=== PATIENT | male | born 1930 | race Caucasian/White ===

== ENCOUNTER → 2017-06-04 | Outpatient (CLI) | payer OTHER, MEDICARE ==
[~2017-06-04] MED LIST: ALLO300 PO; AMLO5 PO; AMPI500 PO; Cipro500 MG PO; GABA300 PO; GLIM2 PO; LOSHYD100 PO; METF500 PO; METO100ER PO; MIRALAX17 GM PO; NORT25 PO; ONDA4ODT MM; PRAV20 PO; RANI150 PO
== END ==
LOC: LAB 10:02 → LAB SHORT 10:02
DX: N39.0 Urinary tract infection, site not specified (principal)
CPT/HCPCS: 87086

== ENCOUNTER 2017-08-04 07:42 | Emergency (ER) | payer OTHER, MEDICARE ==
[~2017-08-04] VITALS: Ht 170.2 cm; Wt 111.1 kg
[2017-08-04 09:30] LABS: Source, Urine Clean Catch
[2017-08-04 09:40] LABS: Bilirubin, Urine Neg (Neg); Blood, Urine Neg (Neg); Glucose Qualitative, Urine Neg (Neg); Ketones, Urine Neg (Neg); Leukocyte Esterase, Urine Neg (Neg); Nitrite, Urine Neg (Neg); Protein, Urine Neg (Neg); Urobilinogen, Urine NORM (Normal)
[2017-08-04 09:45] LABS: Calcium, Ionized (POC) 1.17 mmol/L (1.10-1.46); Chloride (POC) 99 mmol/L (98-108); Creatinine (POC) 2.1 mg/dL (0.8-1.3); Glucose (ISTAT POC) 213 mg/dL (70-99); Sodium (POC) 139 mmol/L (135-148); Total CO2 (POC) 26 mmol/L (21-32)
[2017-08-04 09:58] LABS: Appearance, Urine Clear (Clear); Color, Urine Yellow (P-Yellow)
== END 2017-08-04 15:39 | disposition home or self-care (01) ==
LOC: ER 07:42
PROVIDERS: Physician Assistant
DX: R53.1 Weakness (principal); W19.XXXA Unspecified fall, initial encounter; X50.9XXA Other and unspecified overexertion or strenuous movements or postures, initial encounter; Z79.899 Other long term (current) drug therapy; Z79.84 Long term (current) use of oral hypoglycemic drugs; I10 Essential (primary) hypertension; E11.40 Type 2 diabetes mellitus with diabetic neuropathy, unspecified; Z87.891 Personal history of nicotine dependence
CPT/HCPCS: 36415; 71045; 73562-LT; 80047; 81003; 83880; 85014; 99283

== ENCOUNTER 2018-09-08 14:56 | Emergency (ER) | payer OTHER, MEDICARE ==
[~2018-09-08] VITALS: Ht 172.7 cm; Wt 108.9 kg
[2018-09-08 15:34] LABS: BASOPHILS ABSOLUTE AUTO 0.05 K/mm3 (0.00-0.23); BASOPHILS PERCENT AUTO 1 % (0-2); EOSINOPHILS ABSOLUTE AUTO 0.18 K/mm3 (0.00-0.68); EOSINOPHILS PERCENT AUTO 2 % (0-6); Hematocrit 42.4 % (37.0-53.0); Hemoglobin 14.5 g/dL (13.5-17.5); IMMATURE GRAN ABSOLUTE AUTO 0.04 K/mm3 (0.00-0.10); IMMATURE GRAN PERCENT AUTO 0 % (0-1); LYMPHOCYTES PERCENT AUTO 14 % (21-46); MONOCYTES PERCENT AUTO 8 % (4-13); Mean Corpuscular HGB Conc 34.2 g/dL (31.5-36.5); Mean Corpuscular Volume 91 fL (80-100); Mean Platelet Volume 10.2 fL (9.1-12.4); NEUTROPHILS ABSOLUTE AUTO 7.12 K/mm3 (1.96-9.15); NEUTROPHILS PERCENT AUTO 76 % (41-73); Platelet Count 218 K/mm3 (150-400); RDW Coefficient Variation 13.6 % (11.7-14.2); RDW Standard Deviation 44.9 fL (35.1-46.3); Red Blood Cell Count 4.67 M/mm3 (4.30-5.90); White Blood Cell Count 9.39 K/mm3 (4.00-11.30)
[2018-09-08 16:00] LABS: Albumin, Blood 3.6 g/dL (3.4-5.0); Albumin/Globulin Ratio 0.9 (0.8-1.8); Bilirubin, Total 0.5 mg/dL (0.1-1.0); Bun/Creatinine Ratio 14.1 (12.0-20.0); Calcium, Blood 8.9 mg/dL (8.5-10.1); Creatinine, Blood 1.85 mg/dL (0.60-1.20); Globulin, Blood 4.2 g/dL (2.2-4.0); Potassium, Blood 3.7 mmol/L (3.5-5.5); Total Protein, Blood 7.8 g/dL (6.4-8.2)
[2018-09-08] MEDS ORDERED: Allopurinol100 MG PO (17:34)
[2018-09-08] MEDS ORDERED: GABA400 PO (17:35)
[2018-09-08] MEDS ORDERED: CEPH500 PO (18:45)
== END 2018-09-08 18:56 | disposition home or self-care (01) ==
LOC: ER 14:56
PROVIDERS: Physician Assistant
DX: E11.621 Type 2 diabetes mellitus with foot ulcer (principal); L97.509 Non-pressure chronic ulcer of other part of unspecified foot with unspecified severity; E11.42 Type 2 diabetes mellitus with diabetic polyneuropathy; E11.65 Type 2 diabetes mellitus with hyperglycemia; L03.119 Cellulitis of unspecified part of limb; I10 Essential (primary) hypertension; M10.9 Gout, unspecified; N28.9 Disorder of kidney and ureter, unspecified; Z79.899 Other long term (current) drug therapy; Z87.891 Personal history of nicotine dependence
CPT/HCPCS: 73630; 80053; 85025; 96365; 99283-25; J0690

== ENCOUNTER 2018-10-30 18:24 | Inpatient (IN) | payer OTHER, MEDICARE ==
[~2018-10-30] VITALS: Ht 172.7 cm; Wt 104.0 kg
[~2018-10-30 18:24] MED LIST changes: +Allopurinol100 MG PO; +CEPH500 PO; +GABA400 PO
[2018-10-30 19:10] LABS: BASOPHILS ABSOLUTE AUTO 0.07 K/mm3 (0.00-0.23); BASOPHILS PERCENT AUTO 0 % (0-2); EOSINOPHILS PERCENT AUTO 0 % (0-6); Hematocrit 45.7 % (37.0-53.0); Hemoglobin 15.7 g/dL (13.5-17.5); IMMATURE GRAN ABSOLUTE AUTO 0.16 K/mm3 (0.00-0.10); IMMATURE GRAN PERCENT AUTO 1 % (0-1); LYMPHOCYTES ABSOLUTE AUTO 0.27 K/mm3 (0.84-5.20); LYMPHOCYTES PERCENT AUTO 1 % (21-46); MONOCYTES ABSOLUTE AUTO 0.69 K/mm3 (0.16-1.47); MONOCYTES PERCENT AUTO 3 % (4-13); Mean Corpuscular HGB 31.2 pg (26.0-34.0); Mean Corpuscular HGB Conc 34.4 g/dL (31.5-36.5); Mean Corpuscular Volume 91 fL (80-100); Mean Platelet Volume 9.8 fL (9.1-12.4); NEUTROPHILS PERCENT AUTO 95 % (41-73); Platelet Count 203 K/mm3 (150-400); RDW Coefficient Variation 13.7 % (11.7-14.2); RDW Standard Deviation 45.1 fL (35.1-46.3); Red Blood Cell Count 5.03 M/mm3 (4.30-5.90); White Blood Cell Count 24.19 K/mm3 (4.00-11.30)
[2018-10-30 19:19] LABS: Source, Urine Clean Catch
[2018-10-30 19:22] LABS: Appearance, Urine Hazy (Clear); Bilirubin, Urine Neg (Neg); Blood, Urine 5+ (Neg); Color, Urine Yellow (P-Yellow); Glucose Qualitative, Urine 4+ (Neg); Ketones, Urine 2+ (Neg); Leukocyte Esterase, Urine 1+ (Neg); Nitrite, Urine Neg (Neg); Protein, Urine 1+ (Neg); Specific Gravity, Urine 1.015 (1.003-1.022); Urobilinogen, Urine NORM (Normal)
[2018-10-30 19:29] LABS: Albumin, Blood 3.8 g/dL (3.4-5.0); Albumin/Globulin Ratio 0.9 (0.8-1.8); Bilirubin, Total 0.7 mg/dL (0.1-1.0); Bun/Creatinine Ratio 17.2 (12.0-20.0); Calcium, Blood 9.2 mg/dL (8.5-10.1); Creatinine, Blood 1.86 mg/dL (0.60-1.20); Globulin, Blood 4.4 g/dL (2.2-4.0); Potassium, Blood 4.6 mmol/L (3.5-5.5); Total Protein, Blood 8.2 g/dL (6.4-8.2)
[2018-10-30] MEDS ORDERED: Ventolin/Prove6.7 GM INH (19:30)
[2018-10-30] MEDS ORDERED: Zantac150 MG PO (19:31)
[2018-10-30 19:40] LABS: Bacteria Mod /hpf; Red Blood Cells, Urine 25-50 /hpf (0-2); Squamous Epithelial Cells Rare /hpf (Few)
[2018-10-31 01:18] LABS: Adenovirus F 40/41 Not Detected (NOT DETECT); Astrovirus Not Detected (NOT DETECT); Campylobacter Sp Not Detected (NOT DETECT); Cryptosporidium Not Detected (NOT DETECT); Cyclospora Cayetanensis Not Detected (NOT DETECT); E. Coli O157 Not Detected (NOT DETECT); Entamoeba Histolytica Not Detected (NOT DETECT); Enteroaggregative E. coli-EAEC Not Detected (NOT DETECT); Enteropathogenic E. coli-EPEC Not Detected (NOT DETECT); Enterotoxigenic E. coli-ETEC Not Detected (NOT DETECT); Giardia Lamblia Not Detected (NOT DETECT); Norovirus GI/GII Not Detected (NOT DETECT); Plesiomonas Shigelloides Not Detected (NOT DETECT); Rotavirus A Not Detected (NOT DETECT); Salmonella Sp Not Detected (NOT DETECT); Sapovirus Not Detected (NOT DETECT); Shiga Toxin-prod E. coli-STEC Not Detected (NOT DETECT); Shigella/Enteroin E. coli-EIEC Not Detected (NOT DETECT); Vibrio Cholerae Not Detected (NOT DETECT); Vibrio Sp Not Detected (NOT DETECT); Yersinia Enterocolitica Not Detected (NOT DETECT)
[2018-10-31 05:03] LABS: BASOPHILS ABSOLUTE AUTO 0.04 K/mm3 (0.00-0.23); BASOPHILS PERCENT AUTO 0 % (0-2); EOSINOPHILS ABSOLUTE AUTO 0.01 K/mm3 (0.00-0.68); EOSINOPHILS PERCENT AUTO 0 % (0-6); Hematocrit 38.8 % (37.0-53.0); Hemoglobin 13.1 g/dL (13.5-17.5); IMMATURE GRAN ABSOLUTE AUTO 0.13 K/mm3 (0.00-0.10); IMMATURE GRAN PERCENT AUTO 1 % (0-1); LYMPHOCYTES ABSOLUTE AUTO 0.52 K/mm3 (0.84-5.20); LYMPHOCYTES PERCENT AUTO 3 % (21-46); MONOCYTES ABSOLUTE AUTO 0.64 K/mm3 (0.16-1.47); MONOCYTES PERCENT AUTO 4 % (4-13); Mean Corpuscular HGB 31.3 pg (26.0-34.0); Mean Corpuscular HGB Conc 33.8 g/dL (31.5-36.5); Mean Corpuscular Volume 93 fL (80-100); NEUTROPHILS PERCENT AUTO 93 % (41-73); Platelet Count 164 K/mm3 (150-400); RDW Coefficient Variation 13.7 % (11.7-14.2); RDW Standard Deviation 46.5 fL (35.1-46.3); Red Blood Cell Count 4.18 M/mm3 (4.30-5.90); White Blood Cell Count 18.14 K/mm3 (4.00-11.30)
[2018-10-31 05:22] LABS: Albumin/Globulin Ratio 0.8 (0.8-1.8); Bilirubin, Total 0.5 mg/dL (0.1-1.0); Bun/Creatinine Ratio 14.8 (12.0-20.0); Calcium, Blood 8.2 mg/dL (8.5-10.1); Creatinine, Blood 1.82 mg/dL (0.60-1.20); Globulin, Blood 3.6 g/dL (2.2-4.0); Potassium, Blood 3.8 mmol/L (3.5-5.5); Total Protein, Blood 6.6 g/dL (6.4-8.2)
--- NOTE | 2018-10-31 05:28 | NUR ---
SHIFT SUMMARY- PT. ARRIVED FROM ED VIA STRETCHER. TRANSFERRED ONTO BED BY THIS NURSE AND SCHOOL BUSINESS MANAGER. A&O, WITH GENERALIZED WEAKNESS. ATTENDS IN PLACE, PT. ABLE TO USE URINAL BUT INCONTINENT AT TIMES. DENIED ANY PAIN OR DISCOMFORT. POSITIONED FOR COMFORT. PT. ASLEEP T/O THE REST OF THE NIGHT. IV FLUIDS RUNNING. CALL LIGHT WITHIN REACH AND SIDE RAILS UP X2. WILL CONT TO MONITOR.
--- NOTE | 2018-10-31 14:05 | NUR ---
Physician notified Received orders for CBG achs instead of Q6.
--- NOTE | 2018-10-31 17:28 | NUR ---
Shift Summary Pleasant and cooperative t/o shift. A/O x 3. Patient states nonambulatory and w/c bound as baseline. Medicated for R shoulder pain x 1 per EMAR. Denies N/V, no evidence of diarrhea. 1P c urinal, continent, calls appropriately. VSS, afebrile. No acute changes this shift.
--- NOTE | 2018-10-31 18:17 | NUR ---
Patient has a temp of 101.4 following Tylenol administration per EMAR. Covers removed and room temperature has been reduced. Will recheck temp and continue to monitor.
[2018-10-31 20:50] LABS: Adenovirus F 40/41 Not Detected (NOT DETECT); Astrovirus Not Detected (NOT DETECT); Campylobacter Sp Not Detected (NOT DETECT); Cryptosporidium Not Detected (NOT DETECT); Cyclospora Cayetanensis Not Detected (NOT DETECT); E. Coli O157 Not Detected (NOT DETECT); Entamoeba Histolytica Not Detected (NOT DETECT); Enteroaggregative E. coli-EAEC Not Detected (NOT DETECT); Enteropathogenic E. coli-EPEC Not Detected (NOT DETECT); Enterotoxigenic E. coli-ETEC Not Detected (NOT DETECT); Giardia Lamblia Not Detected (NOT DETECT); Norovirus GI/GII Not Detected (NOT DETECT); Plesiomonas Shigelloides Not Detected (NOT DETECT); Rotavirus A Not Detected (NOT DETECT); Salmonella Sp Not Detected (NOT DETECT); Sapovirus Not Detected (NOT DETECT); Shiga Toxin-prod E. coli-STEC Not Detected (NOT DETECT); Shigella/Enteroin E. coli-EIEC Not Detected (NOT DETECT); Vibrio Cholerae Not Detected (NOT DETECT); Vibrio Sp Not Detected (NOT DETECT); Yersinia Enterocolitica Not Detected (NOT DETECT)
--- NOTE | 2018-11-01 03:54 | NUR ---
SHIFT SUMMARY- NO ACUTE CHANGES OVERNIGHT. PT. SLEPT ON/OFF T/O THE NIGHT. PT. INCONTINENT, BRIEF IN PLACE. DENIED ANY PAIN OR DISCOMFORT. IV FLUIDS INFUSING. CALL LIGHT WITHIN REACH AND SIDE RAILS UP X2. WILL CONT TO MONITOR.
--- NOTE | 2018-11-01 07:20 | NUR ---
Physician notified Dr. Lenz notified of second set of blood cultures c gram + cocci.
[2018-11-01 14:54] LABS: Stool Occult Blood Guaiac 1 Neg (Neg)
--- NOTE | 2018-11-01 17:56 | NUR ---
Shift Summary Pleasant and cooperative c care. No c/o N/V or pain. PT/OT in to work with patient today. Calls appropriately. No other acute changes this shift. VSS, afebrile.
--- NOTE | 2018-11-02 05:09 | NUR ---
SHIFT SUMMARY: JASPREET IS A 88 Y/O MALE, AOX3 THAT HAD PERIODS OF CONFUSION THROUGHOUT THE NIGHT. FORGETTING WHERE HE WAS AT AND WHAT WAS HAPPENING. HE HAD SEVERAL LOOSE BOWEL MOVMENTS THROUGHOUT THE NIGHT, NEEDING ATTENDS CHANGE, MOST OF THE TIME HE WAS ABLE TO CALL FOR THE BED MONTES. HE WOULD ALSO HAVE A BOWEL MOVMENT WITH EVERY TIME HE WOULD USE THE URNIAL. HE DID SLEEP FOR MOST OF THE NIGHT WAKING UP AROUND LAB TIME. HE HAD ANOTHER BOWEL MOVEMENT WHEN HE WOKE UP. MEDS WERE GIVEN PER EMAR. IV INFUSED ANTIBOTICS WITH NO PROBLEM. HE DENIED PAIN AND DISCOMFORT. NO OTHER CHANGES TO NOTE THIS SHIFT. WILL REPORT TO DAY SHIFT RN.
[2018-11-02 09:23] LABS: Hematocrit 42.6 % (37.0-53.0); Hemoglobin 14.1 g/dL (13.5-17.5); Mean Corpuscular HGB 30.4 pg (26.0-34.0); Mean Corpuscular HGB Conc 33.1 g/dL (31.5-36.5); Mean Corpuscular Volume 92 fL (80-100); Mean Platelet Volume 9.9 fL (9.1-12.4); Platelet Count 169 K/mm3 (150-400); RDW Coefficient Variation 13.7 % (11.7-14.2); RDW Standard Deviation 46.5 fL (35.1-46.3); Red Blood Cell Count 4.64 M/mm3 (4.30-5.90); White Blood Cell Count 7.31 K/mm3 (4.00-11.30)
[2018-11-02 09:37] LABS: Bun/Creatinine Ratio 11.2 (12.0-20.0); Calcium, Blood 9.1 mg/dL (8.5-10.1); Creatinine, Blood 1.6 mg/dL (0.60-1.20)
--- NOTE | 2018-11-02 10:59 | NUR ---
INFORMED DR MEJIA OF SBP AROUND 160, HE IS AWARE, STATES HE WILL ADD PO BP MEDS. ALSO INFORMED OF 7 BM OVER NIGHT, ORDERED CDIF AND STATES WILL ORDER PROBIOTICS TODAY
--- NOTE | 2018-11-02 11:18 | NUR ---
PT HAD STOOL IN ATTNDS AND LEAKED. BED CHANGED.
--- NOTE | 2018-11-02 17:40 | NUR ---
CHECKED PT ATTNDS. STATES MAYBE SOME STOOL . PT CDI. REPOSITIONED. BED IN LOW POSITION, CALL LITE IN REEACH, CALLS APPROP
--- NOTE | 2018-11-02 18:08 | NUR ---
SHIFT SUMMARY JASPREET DENIED PAIN THIS SHIFT EXCEPT A HEADACHE FOR WHICH TYLENOL HELPED. GOT UP WITH PT/OT TO USE SLIDER BOARD TO GO FROM BED TO TO BSC. RECEIVED SMALL SCROTAL ABRASION DURING TRANSFER, ENDODONTIST. 7-8 BOWEL MOVEMENTS THIS SHIFT, MOSTLY CONTINENT THIS SHIFT. AW PODIATRY CONSULT. NOW ON ADA DIET, FAMILY VISITED TODAY. ALERT AND ORIENTED, SLIGHTLY FORGETFUL. SLIGHT HYPERTENSION, SBP AROUND 160, DR MEJIA INFORMED. REQUESTED IMMODIUM AND PROBIOTICS FROM HIM.
--- NOTE | 2018-11-03 05:23 | NUR ---
SHIFT SUMMARY: JASPREET IS A 88 Y/O MALE. AOX3, FORGETFUL AT TIME, WHO HAD A GOOD NIGHT SLEEPING MOST OF THE NIGHT AFTER MEDS. HE DID WAKE UP WITH AN ACCIDENT ONCE TONIGHT, WHICH HE NEEDED A BED CHANGE AND CLEANING UP. AFTERWARDS HE SLEPT REST OF THE SHIFT. NO ACUTE CHANGES OR CONCERNS WERE TO NOTE. WILL REPORT TO DAY SHIFT RN.
--- NOTE | 2018-11-03 08:10 | NUR ---
PT PLEASANT COOP A/O. DENIES PAIN. PT WHEELCHAIR AND BED AT BASELINE. H/R REG, NO MURMER NOTED. NO TELE. LUNGS CLEAR WITH LIGHT WHEEZE BASES. BREATHING TX CALLED. RESP EASY, UNLABORED. ON R.A. BT X4 LAST BM TODAY. LOOSE, BUT PT STATES IMPROVING. VOIDS URINAL. SOME OCC INCONT. BED IN LOW POSITION,C ALL LITE IN REACH. CALLS APROP
--- NOTE | 2018-11-03 11:51 | NUR ---
REPORT CALLED TO GARRY AT [facility] AT 1140.
[2018-11-03] MEDS ORDERED: LACT PO (12:14)
[2018-11-03] MEDS ORDERED: Anti-Diarrheal2 MG PO (12:15)
[2018-11-03] MEDS ORDERED: Metamucil Smooth1 EA PO (12:16)
[2018-11-03] MEDS ORDERED: Rocephin 1g1 G/50 ML IV (12:17)
--- NOTE | 2018-11-03 13:09 | NUR ---
POWERGLIDE PLACED BY SUGAR GRINDER. PERIPHERAL IV PULLED INTACT BY SUGAR GRINDER. PACKET READY FOR D/C PER MALLORY Pinedo D/C RN. PT AWARE OF D/C TO [facility]. NO TELE. REPORT CALLED TO GARRY AT [facility]. 11:40. ADVISED TRANSPORT IS PLANNED 13:30. TO GO BY BED/STRETCHER
--- NOTE | 2018-11-03 14:45 | NUR ---
PT OUT DOOR BY TRANSPORT AT [id number]
== END 2018-11-03 14:15 | DRG 871 ==
LOC: ER 18:24 → MEDS 22:17 → ER 10-31 00:34 → MEDS 10-31 00:40 → ENPENDDIS 11-03 11:14 → MEDS 11-03 14:15
PROVIDERS: Emergency Medicine; Internal Medicine; Nurse Practitioner Acute Care; ADMIT Hospitalist
DX: A40.8 Other streptococcal sepsis (principal); G92 Toxic encephalopathy; R65.20 Severe sepsis without septic shock; N18.3 Chronic kidney disease, stage 3 (moderate); E11.22 Type 2 diabetes mellitus with diabetic chronic kidney disease; I12.9 Hypertensive chronic kidney disease with stage 1 through stage 4 chronic kidney disease, or unspecified chronic kidney disease; E11.51 Type 2 diabetes mellitus with diabetic peripheral angiopathy without gangrene; E11.40 Type 2 diabetes mellitus with diabetic neuropathy, unspecified; E86.0 Dehydration; R19.7 Diarrhea, unspecified; Z87.891 Personal history of nicotine dependence; Z79.84 Long term (current) use of oral hypoglycemic drugs; Z79.899 Other long term (current) drug therapy; Z66 Do not resuscitate
CPT/HCPCS: 0097U; 36415; 74176; 80048; 80053; 81001; 82272; 82550; 82947; 83605; 83690; 83735; 85025; 85027; 87040; 87086; 87184; 87493; 89055; 93005; 93010; 93922; 94640; 94760; 96361; 96365; 96367; 97161; 97166; 97530; 97535; 99285-25; A9270; C1751; J0696; J1650; J2543; J3370; J7030; J7050

== ENCOUNTER 2019-01-22 07:56 | Day surgery (SDC) | payer OTHER, MEDICARE ==
[~2019-01-22 07:56] MED LIST changes: -AMLO5 PO; -Allopurinol100 MG PO; -GLIM2 PO; +LACT PO; -METF500 PO; -METO100ER PO; +Metamucil Smooth1 EA PO; -NORT25 PO; -PRAV20 PO; +Rocephin 1g1 G/50 ML IV
== END 2019-01-22 22:39 | disposition home or self-care (01) ==
LOC: WOUND 07:56
DX: E11.621 Type 2 diabetes mellitus with foot ulcer (principal); L97.422 Non-pressure chronic ulcer of left heel and midfoot with fat layer exposed; L97.412 Non-pressure chronic ulcer of right heel and midfoot with fat layer exposed; E11.22 Type 2 diabetes mellitus with diabetic chronic kidney disease; N18.3 Chronic kidney disease, stage 3 (moderate); Z79.4 Long term (current) use of insulin; Z79.899 Other long term (current) drug therapy
CPT/HCPCS: G0463

== ENCOUNTER 2019-01-24 16:11 | Inpatient (IN) | payer OTHER, MEDICARE ==
[~2019-01-24] VITALS: Ht 172.7 cm; Wt 68.9 kg
[2019-01-24 17:27] LABS: BASOPHILS ABSOLUTE AUTO 0.07 K/mm3 (0.00-0.23); BASOPHILS PERCENT AUTO 1 % (0-2); EOSINOPHILS ABSOLUTE AUTO 0.39 K/mm3 (0.00-0.68); EOSINOPHILS PERCENT AUTO 3 % (0-6); Hematocrit 36.5 % (37.0-53.0); Hemoglobin 11.9 g/dL (13.5-17.5); IMMATURE GRAN ABSOLUTE AUTO 0.25 K/mm3 (0.00-0.10); IMMATURE GRAN PERCENT AUTO 2 % (0-1); LYMPHOCYTES ABSOLUTE AUTO 0.96 K/mm3 (0.84-5.20); LYMPHOCYTES PERCENT AUTO 7 % (21-46); MONOCYTES ABSOLUTE AUTO 0.97 K/mm3 (0.16-1.47); MONOCYTES PERCENT AUTO 7 % (4-13); Mean Corpuscular HGB 29.5 pg (26.0-34.0); Mean Corpuscular HGB Conc 32.6 g/dL (31.5-36.5); Mean Corpuscular Volume 90 fL (80-100); Mean Platelet Volume 9.4 fL (9.1-12.4); NEUTROPHILS ABSOLUTE AUTO 10.91 K/mm3 (1.96-9.15); NEUTROPHILS PERCENT AUTO 81 % (41-73); Platelet Count 410 K/mm3 (150-400); RDW Coefficient Variation 13.4 % (11.7-14.2); RDW Standard Deviation 44.9 fL (35.1-46.3); Red Blood Cell Count 4.04 M/mm3 (4.30-5.90); White Blood Cell Count 13.55 K/mm3 (4.00-11.30)
[2019-01-24 17:41] LABS: Albumin, Blood 2.5 g/dL (3.4-5.0); Albumin/Globulin Ratio 0.4 (0.8-1.8); Bilirubin, Total 0.4 mg/dL (0.1-1.0); Bun/Creatinine Ratio 22.9 (12.0-20.0); Calcium, Blood 9.7 mg/dL (8.5-10.1); Creatinine, Blood 1.92 mg/dL (0.60-1.20); Globulin, Blood 6.7 g/dL (2.2-4.0); Potassium, Blood 4.9 mmol/L (3.5-5.5); Total Protein, Blood 9.2 g/dL (6.4-8.2)
[2019-01-24] MEDS ORDERED: TOPROL XL200 MG PO (19:01)
[2019-01-24] MEDS ORDERED: AMLO5 PO (19:03)
[2019-01-24] MEDS ORDERED: PRAV20 PO (19:03)
[2019-01-24] MEDS ORDERED: Nortriptyline H50 MG PO (19:04)
[2019-01-24] MEDS ORDERED: GLIM4 PO (19:05)
[2019-01-24] MEDS ORDERED: METF500 PO (19:06)
[2019-01-24] MEDS ORDERED: Allopurinol100 MG PO (19:06)
[2019-01-24] MEDS ORDERED: Ventolin/Prove6.7 GM INH (19:08)
[2019-01-24] MEDS ORDERED: Zantac150 MG PO (19:09)
[2019-01-24] MEDS ORDERED: Anti-Diarrheal2 MG PO (19:10)
[2019-01-24] MEDS ORDERED: ESCI10 PO (19:12)
[2019-01-24] MEDS ORDERED: BACL10 PO (19:12)
[2019-01-24] MEDS ORDERED: LOSARTAN POTAS100 MG PO (19:13)
[2019-01-24] MEDS ORDERED: Hair, Skin & N1 EACH PO (19:14)
[2019-01-24] MEDS ORDERED: DOCU100 PO (19:15)
[2019-01-24] MEDS ORDERED: GAVILAX17 GM PO (19:15)
[2019-01-24] MEDS ORDERED: Fleet Enema132 ML PR (19:16)
[2019-01-24] MEDS ORDERED: ACET325 PO (19:16)
[2019-01-24] MEDS ORDERED: GLYCERIN1 EACH PR (19:17)
[2019-01-24] MEDS ORDERED: ALLERCLEAR10 MG PO (19:19)
[2019-01-24] MEDS ORDERED: BASAGLAR K100 UNIT/2 SC (19:21)
[2019-01-24] MEDS ORDERED: SANTYL30 GM TOP (19:23)
[2019-01-24 19:38] LABS: Source, Urine Clean Catch
[2019-01-24 19:49] LABS: Appearance, Urine Hazy (Clear); Bilirubin, Urine Neg (Neg); Blood, Urine 1+ (Neg); Color, Urine Yellow (P-Yellow); Glucose Qualitative, Urine Neg (Neg); Ketones, Urine Neg (Neg); Leukocyte Esterase, Urine 3+ (Neg); Nitrite, Urine Neg (Neg); Protein, Urine 1+ (Neg); Specific Gravity, Urine 1.015 (1.003-1.022); Urobilinogen, Urine NORM (Normal)
[2019-01-24 20:24] LABS: Bacteria Few /hpf; Red Blood Cells, Urine 0-2 /hpf (0-2); Squamous Epithelial Cells Mod /hpf (Few); White Blood Cells, Urine 25-50 /hpf (0-5)
[2019-01-24 20:25] LABS: Yeast/Fungi Urine Mod /hpf
[2019-01-24 23:28] LABS: Source, Urine Catheter
[2019-01-24 23:30] LABS: Bilirubin, Urine Neg (Neg); Blood, Urine Neg (Neg); Glucose Qualitative, Urine Neg (Neg); Ketones, Urine Neg (Neg); Leukocyte Esterase, Urine Neg (Neg); Nitrite, Urine Neg (Neg); Protein, Urine Neg (Neg); Specific Gravity, Urine 1.015 (1.003-1.022); Urobilinogen, Urine NORM (Normal)
--- NOTE | 2019-01-24 23:32 | NUR ---
ADMISSION NOTE PT ARRIVED TO UNIT AT 2019 VIA STRETCHER, SLIDE TRANSFER TO BED. 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 APPLIED SANTYL OINTMENT TO WOUNDS AND APPLIED C/D/I DRESSING. PHOTOS DOCUMENTED, SEE CHART. BLADDER SCAN >600 ML UPON ARRIVAL. CALL PLACED TO SARIKA MAS, ORDERS SCALES CATH FOR RETENTION. PT TO RECIEVE FLUIDS PER SEPSIS PROTOCOL, THEREFORE RETENTION WOULD BE AN ONGOING ISSUE TONIGHT. SCALES CATH INSERTED WITH 16FR COUDE TIP BY ORIENTDEVONTE STERLING. STERILE TECHNIQUE MAINTAINED. GAVE ORAL BACLOFEN AND GABAPENTIN FOR BLE SPASMS. AIR MATTRESS ORDERED. Q2H TURNS IMPLEMENTED UNTIL AIR MATTRESS IS AVAIL. ASSUMING CARE OF PT.
[2019-01-24 23:40] LABS: Appearance, Urine Clear (Clear); Color, Urine Yellow (P-Yellow)
--- NOTE | 2019-01-25 01:16 | NUR ---
BEGINNING SHIFT SUMMARY ASSUMED CARE OF PT AT 2019, PT WAS TRANSFERED TO BED VIA SLIDE SHEET. PT WAS ADMITTED FROM [facility] DUE TO HALLUTIONATIONS BUT PT HAS NOT HAD ANY SINCE. PT IS A/O, CALLS APPROPIATELY. HEART SOUNDS IRREGULAR, PERIPHERAL PEDAL PULSES WEAK, IV INFUSING NS AT 500ML/HR DUE TO SEPSIS PROTOCAL. LUNG SOUNDS DIMINISHED AT THE BASES, PT DENIES SOB AT THIS TIME, RA. ABDOMEN FIRM, NONTENDER, PT STATES NORMAL. SCALES CATH PLACED FOR RETENTION AND PROTECTION OF OPEN WOUNDS, URINE DARK AND CLOUDY, SAMPLE SENT, URINE CAME BACK NEGATIVE FOR BACTERIA. PT HAS BILATERAL DECUBITOUS WOUNDS ON HIS HEELS, DRESSED PER DR ORDERS, PT ALSO HAS A 2ND DEGREE PRESSURE ULCER ON L BUTTOCK, DRESSED WITH MYPELEX. PT HAS MUSCLE SPASMS IN LEGS THAT CAUSE HIM TO RUB HIS HEELS ON THE BED, HOSPITALIST CALLED AND PERSCRIBED BACLOFIN AND GABAPENTIN. PT IS CURRENTLY SLEEPING ON HIS L SIDE, CALL LIGHT IN REACH, BED IN LOWEST POSTION, WILL CONTINUE TO MONITOR.
[2019-01-25 04:59] LABS: BASOPHILS ABSOLUTE AUTO 0.04 K/mm3 (0.00-0.23); BASOPHILS PERCENT AUTO 0 % (0-2); EOSINOPHILS ABSOLUTE AUTO 0.34 K/mm3 (0.00-0.68); EOSINOPHILS PERCENT AUTO 3 % (0-6); Hematocrit 34.2 % (37.0-53.0); IMMATURE GRAN ABSOLUTE AUTO 0.12 K/mm3 (0.00-0.10); IMMATURE GRAN PERCENT AUTO 1 % (0-1); LYMPHOCYTES PERCENT AUTO 10 % (21-46); MONOCYTES ABSOLUTE AUTO 0.78 K/mm3 (0.16-1.47); MONOCYTES PERCENT AUTO 8 % (4-13); Mean Corpuscular HGB Conc 32.2 g/dL (31.5-36.5); Mean Corpuscular Volume 90 fL (80-100); Mean Platelet Volume 8.7 fL (9.1-12.4); NEUTROPHILS ABSOLUTE AUTO 8.12 K/mm3 (1.96-9.15); NEUTROPHILS PERCENT AUTO 78 % (41-73); Platelet Count 309 K/mm3 (150-400); RDW Coefficient Variation 13.3 % (11.7-14.2); Red Blood Cell Count 3.79 M/mm3 (4.30-5.90)
[2019-01-25 05:16] LABS: Bun/Creatinine Ratio 20.4 (12.0-20.0); Creatinine, Blood 1.62 mg/dL (0.60-1.20)
--- NOTE | 2019-01-25 06:27 | NUR ---
END SHIFT SUMMARY PT IS DUFFICULT TO AROUSE THIS MORNING. PT WAS HAD PERIODS OF APNEA WHILE SLEEPING; 2L O2 APPLIED. URINE DRAINING CLEAR AND YELLOW. PT SLEPT T/O THE NIGHT. CALL LIGHT IN REACH, BED IN LOWEST POSTION, WILL CONTINUE TO MONITOR UNTIL DAYSHIFT NURSE ARRIVES.
--- NOTE | 2019-01-25 12:39 | NUR ---
DR ARZOLA HERE TO SEE PT.
--- NOTE | 2019-01-25 17:46 | NUR ---
[facility] note: Mr. Cervantes had a good friend at bedside. He denied need for agronomy technician and was pleasantly dismissive. He says he feels hopeful for recovery and denied pain/concerns. Technical Solutions Director Services will remain available.
--- NOTE | 2019-01-25 19:51 | NUR ---
SHIFT SUMMARY PT ENC TO HAVE PO INTAKE. PT BEEN REPOSITIONED MULT TIMES TODAY BY THIS RN AND OTHER STAFF. PT SEEN BY DR AND THERAPY. DR QUEEN WAS HERE AND REPORTED TO HAVE DRESSING PLACED WHICH MIDDLE SCHOOL SCIENCE TEACHER PLACED, ORDERS PLACED BY DR QUEEN. PT CONT TO HAVE SCALES IN PLACE, DRAINING WELL. PT HAD BM THIS EVENING. FAMILY IN/OUT OF ROOM.
--- NOTE | 2019-01-25 23:26 | NUR ---
BEGINNING SHIFT SUMMARY ASSUMED ARE OF PT AT 1900. PT WAS LYING IN BED RESTING. PT IS A/O AND EASILY AWOKEN. HEART SOUNDS REGULAR, FINE CRACKLES AT THE BASES, PT DENIES SOB/ CP AT THIS TIME. WOUNDS DRESSED PER PROTOCOL, PT DENIES ANY PAIN AT THIS TIME. SCALES DRAINING, CLEAR AND YELLOW URINE. PT STATES HE IS TIRED AND READY TO SLEEP. CALL LIGHT IN REACH, BED IN LOWEST POSITION, WILL CONTINUE TO MONITOR.
[2019-01-26 04:41] LABS: BASOPHILS ABSOLUTE AUTO 0.04 K/mm3 (0.00-0.23); BASOPHILS PERCENT AUTO 0 % (0-2); EOSINOPHILS ABSOLUTE AUTO 0.31 K/mm3 (0.00-0.68); EOSINOPHILS PERCENT AUTO 3 % (0-6); Hematocrit 34.5 % (37.0-53.0); Hemoglobin 11.1 g/dL (13.5-17.5); IMMATURE GRAN ABSOLUTE AUTO 0.09 K/mm3 (0.00-0.10); IMMATURE GRAN PERCENT AUTO 1 % (0-1); LYMPHOCYTES ABSOLUTE AUTO 0.93 K/mm3 (0.84-5.20); LYMPHOCYTES PERCENT AUTO 9 % (21-46); MONOCYTES ABSOLUTE AUTO 0.67 K/mm3 (0.16-1.47); MONOCYTES PERCENT AUTO 7 % (4-13); Mean Corpuscular HGB Conc 32.2 g/dL (31.5-36.5); Mean Corpuscular Volume 90 fL (80-100); Mean Platelet Volume 8.8 fL (9.1-12.4); NEUTROPHILS ABSOLUTE AUTO 7.82 K/mm3 (1.96-9.15); NEUTROPHILS PERCENT AUTO 79 % (41-73); Platelet Count 327 K/mm3 (150-400); RDW Coefficient Variation 13.4 % (11.7-14.2); RDW Standard Deviation 43.8 fL (35.1-46.3); Red Blood Cell Count 3.83 M/mm3 (4.30-5.90); White Blood Cell Count 9.86 K/mm3 (4.00-11.30)
[2019-01-26 05:02] LABS: Albumin, Blood 2.1 g/dL (3.4-5.0); Anion Gap 6 mmol/L (6-16); Blood Urea Nitrogen 25 mg/dL (8-24); CO2, Blood 25 mmol/L (21-32); Calcium, Blood 8.8 mg/dL (8.5-10.1); Chloride, Blood 107 mmol/L (98-108); Creatinine, Blood 1.39 mg/dL (0.60-1.20); Glomerular Filtration Rate 51 (60-); Glucose, Blood 108 mg/dL (70-99); Phosphorus, Blood 3.5 mg/dL (2.5-4.9); Potassium, Blood 4.3 mmol/L (3.5-5.5); Sodium, Blood 138 mmol/L (136-145)
--- NOTE | 2019-01-26 05:10 | NUR ---
END SHIFT SUMMARY NO ACUTE CHANGES NOTED T/O THE NIGHT. PT SLEPT T/O THE NIGHT. PT DENIES DYSPNEA/SOB OR CP. PT REPOSITIONED, AND IS CURRETLY SLEEPING. CALL LIGHT IN REACH, BED IN LOWEST POSTION, WILL CONTINUE TO MONITOR UNTIL DAYSHIFT NURSE ARRIVES.
--- NOTE | 2019-01-26 10:14 | NUR ---
PATIENT DID NOT EAT BREAKFAS THIS SHIFT. RN NOTIFIED
--- NOTE | 2019-01-26 19:04 | NUR ---
HE JUST RECEIVED ANOTHER VISITOR. HE HAS BEEN ALERT ALL DAY WITHOUT COMPLAINTS EXCEPT THE SPASMS IN HIS LEGS HAVE BEEN BOTHERING HIM THE PAST 2 HRS. BACLOFEN GIVEN. VSS TODAY. EATING AND DRINKING WELL. SCALES OUTPUT GOOD. I GAVE THE MSG THAT WILL NOT BE AVAILABLE UNTIL TUESDAY. HE HAS FOAM DRESSINGS ON BOTH HEELS AND ON HIS BOTTOM. THERE IS A SMELL OF NECROSIS IN THE ROOM. HE HAS BEEN REPOSITIONED REGULARLY.
--- NOTE | 2019-01-27 06:18 | NUR ---
SHIFT SUMMARY NO ACUTE CHANGES OVERNIGHT. PT HAS PAINFUL MUSCLE SPASMS TO BLE THAT KEPT HIM AWAKE A PORTION OF TONIGHT. REPOSITIONED Q2H. BLE HEEL DRESSINGS INTACT. SANTYL APPLIED TO SACRAL DECUB. SCALES IN PLACE, PATENT AND DRAINING. WILL CONT TO MONITOR AND PROVIDE CARE UNTIL PRESUMED BY ONCOMING RN.
[2019-01-27 08:46] LABS: Albumin, Blood 2.4 g/dL (3.4-5.0); Anion Gap 5 mmol/L (6-16); Blood Urea Nitrogen 29 mg/dL (8-24); Bun/Creatinine Ratio 18.2 (12.0-20.0); CO2, Blood 27 mmol/L (21-32); Calcium, Blood 9.7 mg/dL (8.5-10.1); Chloride, Blood 104 mmol/L (98-108); Creatinine, Blood 1.59 mg/dL (0.60-1.20); Glomerular Filtration Rate 44 (60-); Glucose, Blood 160 mg/dL (70-99); Phosphorus, Blood 3.8 mg/dL (2.5-4.9); Potassium, Blood 4.4 mmol/L (3.5-5.5); Sodium, Blood 136 mmol/L (136-145)
--- NOTE | 2019-01-27 18:27 | NUR ---
PT A/O, PLEASANT AND COOPERATIVE, PT BASELINE IS BED BOUND AND UP WITH LIFT. PT WAS UP (CRISTÓBAL LIFT USEDL) TO RECLINER THIS AFTERNOON FOR A SHORT WHILE. PT WITH DM PRESSURE ULCERS TO B/L HEELS WITH FOUL ODOR NOTED. HEEL DRESSING CHANGED AND REPLACED PER WOUND CARE ORDERS. NO ACUTE CHANGES NOTED THIS SHIFT, WILL CONTINUE TO MONITOR AND REPORT TO ONCOMING RN
--- NOTE | 2019-01-27 23:16 | NUR ---
PATIENT RESTLESS AND SAYS HE FEELS FIDGETY TONIGHT. DRESSINGS CHANGED B/L HEELS AND SACRAL MEPLEX. BED LOW LOCKED AND ALARMED. PATIENT IS NOT CALLING APPROPRIATELY. PT IS OTHERWISE PLEASANT AND COOPERATIVE WITH CARE.
[2019-01-28 05:25] LABS: Albumin, Blood 2.2 g/dL (3.4-5.0); Anion Gap 8 mmol/L (6-16); Blood Urea Nitrogen 32 mg/dL (8-24); Bun/Creatinine Ratio 21.9 (12.0-20.0); CO2, Blood 25 mmol/L (21-32); Calcium, Blood 9.4 mg/dL (8.5-10.1); Chloride, Blood 101 mmol/L (98-108); Creatinine, Blood 1.46 mg/dL (0.60-1.20); Glomerular Filtration Rate 49 (60-); Glucose, Blood 152 mg/dL (70-99); Phosphorus, Blood 4.2 mg/dL (2.5-4.9); Potassium, Blood 4.5 mmol/L (3.5-5.5); Sodium, Blood 134 mmol/L (136-145)
--- NOTE | 2019-01-29 07:38 | NUR ---
PATIENT NOT FEELING WELL THIS AM. HE SLEPT ALOT THIS SHIFT. PT REMAINS AO4 BUT A BIT CONFUSED ABOUT WHERE HE IS DURING REPORT. VSS THIS SHIFT. PASSED REPORT TO DAY RNMCGLADE TO SEE THE PATIENT TODAY.
[2019-01-29 08:45] LABS: BASOPHILS ABSOLUTE AUTO 0.07 K/mm3 (0.00-0.23); BASOPHILS PERCENT AUTO 0 % (0-2); EOSINOPHILS PERCENT AUTO 1 % (0-6); Hematocrit 34.5 % (37.0-53.0); Hemoglobin 11.1 g/dL (13.5-17.5); IMMATURE GRAN PERCENT AUTO 1 % (0-1); LYMPHOCYTES PERCENT AUTO 6 % (21-46); MONOCYTES ABSOLUTE AUTO 1.02 K/mm3 (0.16-1.47); MONOCYTES PERCENT AUTO 6 % (4-13); Mean Corpuscular HGB 29.1 pg (26.0-34.0); Mean Corpuscular HGB Conc 32.2 g/dL (31.5-36.5); Mean Corpuscular Volume 90 fL (80-100); Mean Platelet Volume 9.1 fL (9.1-12.4); NEUTROPHILS ABSOLUTE AUTO 13.95 K/mm3 (1.96-9.15); NEUTROPHILS PERCENT AUTO 87 % (41-73); Platelet Count 330 K/mm3 (150-400); RDW Coefficient Variation 13.5 % (11.7-14.2); RDW Standard Deviation 44.8 fL (35.1-46.3); Red Blood Cell Count 3.82 M/mm3 (4.30-5.90); White Blood Cell Count 16.14 K/mm3 (4.00-11.30)
[2019-01-29 09:00] LABS: Albumin, Blood 2.2 g/dL (3.4-5.0); Anion Gap 6 mmol/L (6-16); Blood Urea Nitrogen 32 mg/dL (8-24); Bun/Creatinine Ratio 18.4 (12.0-20.0); CO2, Blood 26 mmol/L (21-32); Calcium, Blood 9.3 mg/dL (8.5-10.1); Chloride, Blood 103 mmol/L (98-108); Creatinine, Blood 1.74 mg/dL (0.60-1.20); Glomerular Filtration Rate 40 (60-); Glucose, Blood 169 mg/dL (70-99); Phosphorus, Blood 4.1 mg/dL (2.5-4.9); Potassium, Blood 4.6 mmol/L (3.5-5.5); Sodium, Blood 135 mmol/L (136-145)
[2019-01-29 13:03] LABS: Source, Urine Catheter
--- NOTE | 2019-01-29 13:05 | NUR ---
PT WAS VERY FATGUED THIS MORNING AND COULD NOT WAKE UP TO TAKE HIS PILLS OR EAT BREAKFAST. THE DOCTOR WAS NOTIFIED AND GAVE VERBAL ORDER TO HOKD HIS MORNING MEDS. THE DOCTOR SAW THE PT AT THE BEDSIDE THIS MORNING. CONSULT TO DR SERNA WAS CALLED IN ORDERED. FLUIDS ARE RUNNING ORDERED. PT CAME AND WORKED WITH THE PT LATE MORNING AND WAS ABLE TO GET HIM UP TO THE RECLINER. THE PT IS AWAKE AND ALERT NOW. DRESSINGS TO BILAT HEELS AND COCCYX WERE ALL CLEANED AND DRY DRESSINGS APPLIED. PT IS ABLE TO MAKE HIS NEEDS KNOWN AT TIMES. YORDY IS PATENT. PT IS UP TO THE CHAIR EATING HIS LUNCH NOW.
[2019-01-29 13:10] LABS: Bilirubin, Urine Neg (Neg); Blood, Urine 5+ (Neg); Glucose Qualitative, Urine Neg (Neg); Ketones, Urine Neg (Neg); Leukocyte Esterase, Urine 3+ (Neg); Nitrite, Urine Neg (Neg); Protein, Urine 2+ (Neg); Urobilinogen, Urine NORM (Normal)
[2019-01-29 13:23] LABS: Appearance, Urine Hazy (Clear); Color, Urine Yellow (P-Yellow)
[2019-01-29 13:24] LABS: White Blood Cells, Urine TNTC /hpf (0-5)
[2019-01-29 13:25] LABS: Red Blood Cells, Urine 25-50 /hpf (0-2)
[2019-01-29 13:28] LABS: Squamous Epithelial Cells Rare /hpf (Few)
[2019-01-29 13:29] LABS: Bacteria Few /hpf; Yeast/Fungi Urine Many /hpf
--- NOTE | 2019-01-29 17:12 | NUR ---
SHIFT SUMMARY PT AXO, PLEASANT AND COOPERATIVE WITH CARE. VSS. SCALES PATENT AND DRAINING. THIS NURSE ASSUMED CARE AT 1300. IV PATENT AND INFUSING PER EMAR. UP TO CHAIR WITH PHYSICAL THERAPY VIA LIFT, SEE NOTE. BED IN LOW POSITION, CALL LIGHT WITHIN REACH. REPOSITIONED Q2 AND PRN. SON VISITING AT THIS TIME.
--- NOTE | 2019-01-30 06:18 | NUR ---
SHIFT SUMMARY: VSS. PULSE ELEVATED. AFEB. A/OX2. SLEPT MUCH OF NIGHT. TYL ADMINISTERED FOR LE DISCOMFORT WITH GOOD EFFECT. DRSG ON L HEEL CHANGED D/T SATURATION WITH PURULENTN DISCHARGE. R HEEL AND COCCYX DRSG CDI. INTERMITTENT COUGH PRODUCING MOD AMTS OF TENACIOUS WHITE SPUTUM. FC PATENT AND DRAINING CLEAR YELLOW URINE. BED LOW, CALL BUTTON IN REACH.
[2019-01-30 09:22] LABS: BASOPHILS ABSOLUTE AUTO 0.05 K/mm3 (0.00-0.23); BASOPHILS PERCENT AUTO 1 % (0-2); EOSINOPHILS ABSOLUTE AUTO 0.16 K/mm3 (0.00-0.68); EOSINOPHILS PERCENT AUTO 2 % (0-6); Hemoglobin 10.7 g/dL (13.5-17.5); IMMATURE GRAN ABSOLUTE AUTO 0.06 K/mm3 (0.00-0.10); IMMATURE GRAN PERCENT AUTO 1 % (0-1); LYMPHOCYTES ABSOLUTE AUTO 0.89 K/mm3 (0.84-5.20); LYMPHOCYTES PERCENT AUTO 9 % (21-46); MONOCYTES ABSOLUTE AUTO 1.05 K/mm3 (0.16-1.47); MONOCYTES PERCENT AUTO 10 % (4-13); Mean Corpuscular HGB 28.6 pg (26.0-34.0); Mean Corpuscular HGB Conc 31.5 g/dL (31.5-36.5); Mean Corpuscular Volume 91 fL (80-100); NEUTROPHILS ABSOLUTE AUTO 8.11 K/mm3 (1.96-9.15); NEUTROPHILS PERCENT AUTO 79 % (41-73); Platelet Count 331 K/mm3 (150-400); RDW Coefficient Variation 13.5 % (11.7-14.2); RDW Standard Deviation 44.6 fL (35.1-46.3); Red Blood Cell Count 3.74 M/mm3 (4.30-5.90); White Blood Cell Count 10.32 K/mm3 (4.00-11.30)
[2019-01-30 09:40] LABS: Albumin, Blood 2.2 g/dL (3.4-5.0); Anion Gap 5 mmol/L (6-16); Blood Urea Nitrogen 34 mg/dL (8-24); Bun/Creatinine Ratio 22.7 (12.0-20.0); CO2, Blood 26 mmol/L (21-32); Calcium, Blood 9.1 mg/dL (8.5-10.1); Chloride, Blood 103 mmol/L (98-108); Glomerular Filtration Rate 47 (60-); Glucose, Blood 250 mg/dL (70-99); Phosphorus, Blood 3.3 mg/dL (2.5-4.9); Potassium, Blood 4.4 mmol/L (3.5-5.5); Sodium, Blood 134 mmol/L (136-145)
--- NOTE | 2019-01-30 12:04 | NUR ---
DR SERNA IN FOR VASCULAR CONSULT BLE. STATE NEED FOR SURG PROCEDURE. PT & JAILYN AGREE. STATE NPO @ THIS TIME. HOLD INSULIN & HEPARIN FOR NOW. WILL CALL TO CONFIRM IF ABLE TO SCHEDULE SURG TODAY. WOUND CARE BILAT HEELS PROVIDED. PT UP TO CHAIR VIA LIFT.
--- NOTE | 2019-01-30 14:56 | NUR ---
SUMMARY PT IS A/O X 2-3 THIS AM, SOME CONFUSION R/T TIME/DATE OTHERWISE ANSW QUESTIONS APPROP. HE STATE WEAKNESS/FATIGUE. STATE CONTINUING INTERMITTANT MUSCLE SPASMS BLE. STATE BLE NEUROPATHY. HE IS UNABLE TO AMBULATE @ THIS TIME, USING LIFT TO ASSIST HIM UP TO RECLINER/BSC. HE COULD ONLY TOLERATE SHORT TIME IN CHAIR THEN REQUEST BACK TO BED, HE ATTEMPTED PARTICIPATION W PT/OT. DR SERNA IN TO SEE HIM R/T BLE HEEL WOUNDS, STATE NEED FOR VASCULAR PROCEDURE TO CORRECT, PT & DAUGHTER AGREE. HE HAS BEEN NPO SINCE CONSULT, HOLDING INSULIN & HEPARIN/DR SERNA. DR ARZOLA INFORMED, SHE ORDER NS @ 75 ML/HR X 1L. IV ANTIBX CONTINUE. O2 @ 2L, BIOX 92%, VSS.
--- NOTE | 2019-01-31 03:46 | NUR ---
ALERT AND ORIENTED. SLEEPING AT INTERVALS. IV OF RIGHT FOREARM INFILTRATED EARLIER, IV REMOVED, PLACED ON PILLOW AND HEAT/COLD APPLIED TO REDUCE SWELLING. ANALGESIC ADMINISTERED PER PLASTIC TOP ASSEMBLER ORDERS (WAS NOTIFIED OF INFILTRATION). CURRENTLY SWELLING DOWN, PT DENIED DISTRESS IN AREA. WILL CONTINUE TO MONITOR. CALL LIGHT IN REACH. IV ANTIBIOTICS CONTINUE PER MD ORDERS.
[2019-01-31 05:01] LABS: BASOPHILS ABSOLUTE AUTO 0.05 K/mm3 (0.00-0.23); BASOPHILS PERCENT AUTO 1 % (0-2); EOSINOPHILS ABSOLUTE AUTO 0.19 K/mm3 (0.00-0.68); EOSINOPHILS PERCENT AUTO 2 % (0-6); Hematocrit 31.6 % (37.0-53.0); Hemoglobin 10.4 g/dL (13.5-17.5); IMMATURE GRAN ABSOLUTE AUTO 0.07 K/mm3 (0.00-0.10); IMMATURE GRAN PERCENT AUTO 1 % (0-1); LYMPHOCYTES ABSOLUTE AUTO 1.07 K/mm3 (0.84-5.20); LYMPHOCYTES PERCENT AUTO 10 % (21-46); MONOCYTES ABSOLUTE AUTO 0.84 K/mm3 (0.16-1.47); MONOCYTES PERCENT AUTO 8 % (4-13); Mean Corpuscular HGB 29.5 pg (26.0-34.0); Mean Corpuscular HGB Conc 32.9 g/dL (31.5-36.5); Mean Corpuscular Volume 90 fL (80-100); NEUTROPHILS ABSOLUTE AUTO 8.39 K/mm3 (1.96-9.15); NEUTROPHILS PERCENT AUTO 79 % (41-73); Platelet Count 316 K/mm3 (150-400); RDW Coefficient Variation 13.3 % (11.7-14.2); RDW Standard Deviation 43.8 fL (35.1-46.3); Red Blood Cell Count 3.52 M/mm3 (4.30-5.90); White Blood Cell Count 10.61 K/mm3 (4.00-11.30)
[2019-01-31 05:18] LABS: Albumin, Blood 2.2 g/dL (3.4-5.0); Anion Gap 5 mmol/L (6-16); Blood Urea Nitrogen 28 mg/dL (8-24); CO2, Blood 26 mmol/L (21-32); Calcium, Blood 9.1 mg/dL (8.5-10.1); Chloride, Blood 104 mmol/L (98-108); Glomerular Filtration Rate 51 (60-); Glucose, Blood 189 mg/dL (70-99); Phosphorus, Blood 2.9 mg/dL (2.5-4.9); Potassium, Blood 4.5 mmol/L (3.5-5.5); Sodium, Blood 135 mmol/L (136-145)
--- NOTE | 2019-01-31 11:05 | NUR ---
PT ARRIVED IN RECOVERY ROOM ON BED. RIGHT GROIN SITE SOFT NON-TENDER WITH NO HEMATOMA AND NO PULSATILE BLEEDING - INTACT DRESSING WITH SLIGHT TRACK OOZING NOTED. PT'S EYE CLOSED WITH NO SIGN OR SYMPTOM OF STRESS. BREATHING UNLABORED AND EVEN. CALL LIGHT IN REACH.
--- NOTE | 2019-01-31 11:09 | NUR ---
PT HAS SCALES CATHETER WITH YELLOW URINE NOTED TO GRAVITY BAG.
--- NOTE | 2019-01-31 12:09 | NUR ---
PT DENIES CHEST PAIN OR RIGHT GROIN PAIN. HOSPITALIST IN ROOM TO SEE PT.
--- NOTE | 2019-01-31 12:30 | NUR ---
RECEIVED TELEPHONE REPORT FROM CYNTHIA, MEDICAL FLOOR RN. AWAITING TRANSPORT FROM [facility] AT THIS TIME.
--- NOTE | 2019-01-31 13:34 | NUR ---
PT TRANSFERED TO U [facility].
--- NOTE | 2019-01-31 14:00 | NUR ---
PT TRANSPORTED TO PCU FROM [facility] VIA HOSPITAL BED. ALERT TO SELF AND IN NO ACUTE DISTRESS AT THIS TIME. BED LEVEL DOWN, ALARM ACTIVATED, CALL LIGHT AND POSSESSIONS IN REACH.
--- NOTE | 2019-01-31 18:44 | NUR ---
PT SITTING UP IN BED COMFORTABLY AT THIS TIME, IN NO ACUTE DISTRESS. NO C/O PAIN. DENIES ANY NEEDS. VISITING WITH AT THE BEDSIDE. BED ALARM ACTIVATED, BED LEVEL DOWN, CALL LIGHT AND POSSESSIONS IN REACH.
--- NOTE | 2019-02-01 04:59 | NUR ---
SHIFT SUMMARY PT ALERT AND ORIENTED TO SELF; CALM AND COMPLIANT W/ CARE; ON BR W/ SCALES IN PLACE DRAINING YELLOW URINE; PT TITRATED TO 2 L NC; O2 SATS >92; HEELS FLOATED ON PILLOWS; SKIN CARE ON COCCYX W/ MIPLEX CHANGE; PT TOLERATED WELL; CALL LIGHT IN REACH; BED IN LOWEST POSITION; BED ALARM ON; WILL CONTINUE TO MONITOR CLOSELY UNTIL HAND OFF TO DAY SHIFT RN
--- NOTE | 2019-02-01 09:01 | NUR ---
After bed bath, the pt's wounds were photographed for weekly and pre-discharge documentation, cleansed, and redressed per orders and wound care protocol. Mepilex dressings were reapplied to the sacrum and heels wounds, and also to the elbows for prophylaxis.
[2019-02-01] MEDS ORDERED: Aspir 8181 MG PO (09:15)
[2019-02-01] MEDS ORDERED: GUAI600T33 PO (09:38)
[2019-02-01] MEDS ORDERED: Humalog100 UNIT/3 SC (09:39)
[2019-02-01] MEDS ORDERED: Vsl#3 Capsule1 EACH PO (09:40)
--- NOTE | 2019-02-01 12:15 | NUR ---
PT DISCHARGED TO [facility]. TRANSPORTED VIA [facility]. IN NO ACUTE DISTRESS AT TIME OF TRANSFER.
--- NOTE | 2019-02-01 12:30 | NUR ---
TELEPHONE REPORT GIVEN TO KENA MALIK RN. DISCHARGE ORDERS FAXED. INFORMED OF IV AND SCALES CATHETER DISCONTINUATION. NO FURTHER QUESTIONS OR CONCERNS VOICED AT THIS TIME.
== END 2019-02-01 12:24 | DRG 853 ==
LOC: ER 16:11 → MEDS 19:26 → PCU 01-31 13:12
PROVIDERS: Emergency Medicine; Internal Medicine; Nurse Practitioner Acute Care; ADMIT Internal Medicine
PROC: 04CL3ZZ Extirpation of Matter from Left Femoral Artery, Percutaneous Approach (ICD-10-PCS; principal; 2019-01-31)
PROC: 047L3Z1 Dilation of Left Femoral Artery using Drug-Coated Balloon, Percutaneous Approach (ICD-10-PCS; 2019-01-31)
DX: A41.9 Sepsis, unspecified organism (principal); L89.614 Pressure ulcer of right heel, stage 4; L89.624 Pressure ulcer of left heel, stage 4; J18.9 Pneumonia, unspecified organism; G92 Toxic encephalopathy; E11.22 Type 2 diabetes mellitus with diabetic chronic kidney disease; K21.9 Gastro-esophageal reflux disease without esophagitis; M10.9 Gout, unspecified; E78.5 Hyperlipidemia, unspecified; E11.51 Type 2 diabetes mellitus with diabetic peripheral angiopathy without gangrene; Z87.891 Personal history of nicotine dependence; G25.81 Restless legs syndrome; N18.3 Chronic kidney disease, stage 3 (moderate); E11.40 Type 2 diabetes mellitus with diabetic neuropathy, unspecified; H35.30 Unspecified macular degeneration; Z66 Do not resuscitate; Z79.84 Long term (current) use of oral hypoglycemic drugs; M62.838 Other muscle spasm; F32.9 Major depressive disorder, single episode, unspecified; I12.9 Hypertensive chronic kidney disease with stage 1 through stage 4 chronic kidney disease, or unspecified chronic kidney disease; L89.302 Pressure ulcer of unspecified buttock, stage 2
CPT/HCPCS: 36415; 37225; 37228; 51702; 71045; 71046; 75625; 75716; 75774; 80048; 80053; 80069; 81001; 81003; 82947; 83036; 83605; 84145; 85025; 85347; 87040; 87086; 87147; 94667; 94760; 96365; 96366; 96375; 97110; 97162; 97167; 97530; 97535; 99152; 99153; 99285-25; A9270; A9270-GY; C1724; C1725; C1760; C1769; C1884; C1887; C1894; C2623; J0456; J0696; J1644; J2250; J2405; J3010; J7030; J7050; Q9967

== ENCOUNTER 2019-02-09 09:57 | Day surgery (SDC) | payer OTHER, MEDICARE ==
[~2019-02-09 09:57] MED LIST changes: +ACET325 PO; +ALLERCLEAR10 MG PO; +AMLO5 PO; +Allopurinol100 MG PO; +Anti-Diarrheal2 MG PO; +Aspir 8181 MG PO; +BACL10 PO; +BASAGLAR K100 UNIT/2 SC; +DOCU100 PO; +ESCI10 PO; +Fleet Enema132 ML PR; +GAVILAX17 GM PO; +GLIM4 PO; +GLYCERIN1 EACH PR; +GUAI600T33 PO; +Hair, Skin & N1 EACH PO; +Humalog100 UNIT/3 SC; +LOSARTAN POTAS100 MG PO; +METF500 PO; +Nortriptyline H50 MG PO; +PRAV20 PO; +SANTYL30 GM TOP; +TOPROL XL200 MG PO; +Ventolin/Prove6.7 GM INH; +Vsl#3 Capsule1 EACH PO; +Zantac150 MG PO
== END 2019-02-09 22:54 | disposition home or self-care (01) ==
LOC: WOUND 09:57
DX: E11.621 Type 2 diabetes mellitus with foot ulcer (principal); E11.51 Type 2 diabetes mellitus with diabetic peripheral angiopathy without gangrene; E11.22 Type 2 diabetes mellitus with diabetic chronic kidney disease; N18.9 Chronic kidney disease, unspecified; E11.42 Type 2 diabetes mellitus with diabetic polyneuropathy; E78.5 Hyperlipidemia, unspecified; F32.9 Major depressive disorder, single episode, unspecified; L97.422 Non-pressure chronic ulcer of left heel and midfoot with fat layer exposed; L97.412 Non-pressure chronic ulcer of right heel and midfoot with fat layer exposed; Z87.891 Personal history of nicotine dependence; Z79.899 Other long term (current) drug therapy; Z79.4 Long term (current) use of insulin; Z79.82 Long term (current) use of aspirin

== ENCOUNTER 2019-02-16 01:44 | Day surgery (SDC) | payer OTHER, MEDICARE ==
[2019-02-16] MEDS ORDERED: Bactrim Ds Tab1 EACH PO (13:00)
== END 2019-02-16 23:26 | disposition home or self-care (01) ==
LOC: WOUND 01:44
DX: I96 Gangrene, not elsewhere classified (principal); L89.629 Pressure ulcer of left heel, unspecified stage; L89.619 Pressure ulcer of right heel, unspecified stage; E11.621 Type 2 diabetes mellitus with foot ulcer; L97.421 Non-pressure chronic ulcer of left heel and midfoot limited to breakdown of skin; E11.52 Type 2 diabetes mellitus with diabetic peripheral angiopathy with gangrene; I12.0 Hypertensive chronic kidney disease with stage 5 chronic kidney disease or end stage renal disease; E11.22 Type 2 diabetes mellitus with diabetic chronic kidney disease; N18.6 End stage renal disease; M10.9 Gout, unspecified; M06.9 Rheumatoid arthritis, unspecified; I65.29 Occlusion and stenosis of unspecified carotid artery; E78.5 Hyperlipidemia, unspecified; F32.9 Major depressive disorder, single episode, unspecified; E11.42 Type 2 diabetes mellitus with diabetic polyneuropathy; Z79.51 Long term (current) use of inhaled steroids; Z79.82 Long term (current) use of aspirin; Z79.4 Long term (current) use of insulin; Z79.899 Other long term (current) drug therapy
CPT/HCPCS: 87070; 87075; 87077; 87186; 87205

== ENCOUNTER 2019-02-16 09:19 | Emergency (ER) | payer BC, MEDICARE ==
[~2019-02-16] VITALS: Ht 172.7 cm; Wt 90.7 kg
[2019-02-16 11:04] LABS: BASOPHILS ABSOLUTE AUTO 0.06 K/mm3 (0.00-0.23); BASOPHILS PERCENT AUTO 1 % (0-2); EOSINOPHILS ABSOLUTE AUTO 0.22 K/mm3 (0.00-0.68); EOSINOPHILS PERCENT AUTO 2 % (0-6); Hematocrit 36.7 % (37.0-53.0); Hemoglobin 11.7 g/dL (13.5-17.5); IMMATURE GRAN ABSOLUTE AUTO 0.05 K/mm3 (0.00-0.10); IMMATURE GRAN PERCENT AUTO 1 % (0-1); LYMPHOCYTES ABSOLUTE AUTO 0.96 K/mm3 (0.84-5.20); LYMPHOCYTES PERCENT AUTO 10 % (21-46); MONOCYTES ABSOLUTE AUTO 0.68 K/mm3 (0.16-1.47); MONOCYTES PERCENT AUTO 7 % (4-13); Mean Corpuscular HGB 28.8 pg (26.0-34.0); Mean Corpuscular HGB Conc 31.9 g/dL (31.5-36.5); Mean Corpuscular Volume 90 fL (80-100); Mean Platelet Volume 9.5 fL (9.1-12.4); NEUTROPHILS ABSOLUTE AUTO 7.29 K/mm3 (1.96-9.15); NEUTROPHILS PERCENT AUTO 79 % (41-73); Platelet Count 316 K/mm3 (150-400); RDW Coefficient Variation 14.6 % (11.7-14.2); RDW Standard Deviation 47.8 fL (35.1-46.3); Red Blood Cell Count 4.06 M/mm3 (4.30-5.90); White Blood Cell Count 9.26 K/mm3 (4.00-11.30)
[2019-02-16 11:21] LABS: Bun/Creatinine Ratio 25.4 (12.0-20.0); C-REACTIVE PROTEIN, EXT RANGE 3.37 mg/dL (0.000-0.300); Calcium, Blood 9.3 mg/dL (8.5-10.1); Creatinine, Blood 1.81 mg/dL (0.60-1.20); Potassium, Blood 4.9 mmol/L (3.5-5.5)
[2019-02-16] MEDS ORDERED: Bactrim Ds Tab1 EACH PO (13:00)
== END 2019-02-16 13:37 | disposition home or self-care (01) ==
LOC: ER 09:19
PROVIDERS: Emergency Medicine
DX: E11.621 Type 2 diabetes mellitus with foot ulcer (principal); L97.426 Non-pressure chronic ulcer of left heel and midfoot with bone involvement without evidence of necrosis; L03.116 Cellulitis of left lower limb; N39.0 Urinary tract infection, site not specified; E11.40 Type 2 diabetes mellitus with diabetic neuropathy, unspecified; I10 Essential (primary) hypertension; Z79.899 Other long term (current) drug therapy; Z79.51 Long term (current) use of inhaled steroids; Z79.4 Long term (current) use of insulin; Z79.82 Long term (current) use of aspirin
CPT/HCPCS: 36415; 73650; 80048; 85025; 85651; 86140; 99283-25

== ENCOUNTER 2019-02-23 08:17 | Day surgery (SDC) | payer BC, MEDICARE ==
[~2019-02-23 08:17] MED LIST changes: +Bactrim Ds Tab1 EACH PO
[2019-02-24] MEDS ORDERED: Diflucan100 MG PO (16:09)
[2019-02-24] MEDS ORDERED: GABA300 PO (16:10)
[2019-02-24] MEDS ORDERED: OMEPRAZOLE20 MG PO (16:27)
[2019-02-24] MEDS ORDERED: NITR100CA PO (16:29)
[2019-02-24] MEDS ORDERED: INSULANPEN SC (17:11)
[2019-02-24] MEDS ORDERED: Humalog100 UNIT/1 SC (17:13)
[2019-02-24] MEDS ORDERED: GLIM4 PO (17:15)
[2019-02-24] MEDS ORDERED: Pedi-Dri 100,0060 GM TOP (17:16)
[2019-02-24] MEDS ORDERED: GUAI600T33 PO (20:47)
[2019-02-24] MEDS ORDERED: Culturelle1 CAP PO (20:49)
== END 2019-02-23 23:13 | disposition home or self-care (01) ==
LOC: WOUND 08:17
DX: I96 Gangrene, not elsewhere classified (principal); L89.624 Pressure ulcer of left heel, stage 4; L89.614 Pressure ulcer of right heel, stage 4; L97.521 Non-pressure chronic ulcer of other part of left foot limited to breakdown of skin; E11.621 Type 2 diabetes mellitus with foot ulcer; E11.42 Type 2 diabetes mellitus with diabetic polyneuropathy; E11.52 Type 2 diabetes mellitus with diabetic peripheral angiopathy with gangrene; I12.0 Hypertensive chronic kidney disease with stage 5 chronic kidney disease or end stage renal disease; E11.22 Type 2 diabetes mellitus with diabetic chronic kidney disease; N18.6 End stage renal disease; M10.9 Gout, unspecified; M06.9 Rheumatoid arthritis, unspecified; E78.5 Hyperlipidemia, unspecified; F32.9 Major depressive disorder, single episode, unspecified; I65.29 Occlusion and stenosis of unspecified carotid artery; Z79.899 Other long term (current) drug therapy; Z79.52 Long term (current) use of systemic steroids; Z79.82 Long term (current) use of aspirin; Z79.4 Long term (current) use of insulin
CPT/HCPCS: G0463

== ENCOUNTER 2019-02-24 15:42 | Inpatient (IN) | payer MEDICARE, BC ==
[~2019-02-24] VITALS: Ht 177.8 cm; Wt 85.1 kg
[2019-02-24] MEDS ORDERED: Diflucan100 MG PO (16:09)
[2019-02-24] MEDS ORDERED: GABA300 PO (16:10)
[2019-02-24 16:12] LABS: BASOPHILS ABSOLUTE AUTO 0.06 K/mm3 (0.00-0.23); BASOPHILS PERCENT AUTO 1 % (0-2); EOSINOPHILS ABSOLUTE AUTO 0.36 K/mm3 (0.00-0.68); EOSINOPHILS PERCENT AUTO 3 % (0-6); Hematocrit 33.8 % (37.0-53.0); Hemoglobin 10.7 g/dL (13.5-17.5); IMMATURE GRAN ABSOLUTE AUTO 0.04 K/mm3 (0.00-0.10); IMMATURE GRAN PERCENT AUTO 0 % (0-1); LYMPHOCYTES ABSOLUTE AUTO 1.53 K/mm3 (0.84-5.20); LYMPHOCYTES PERCENT AUTO 13 % (21-46); MONOCYTES ABSOLUTE AUTO 0.94 K/mm3 (0.16-1.47); MONOCYTES PERCENT AUTO 8 % (4-13); Mean Corpuscular HGB 28.5 pg (26.0-34.0); Mean Corpuscular HGB Conc 31.7 g/dL (31.5-36.5); Mean Corpuscular Volume 90 fL (80-100); Mean Platelet Volume 9.3 fL (9.1-12.4); NEUTROPHILS ABSOLUTE AUTO 8.61 K/mm3 (1.96-9.15); NEUTROPHILS PERCENT AUTO 75 % (41-73); Platelet Count 264 K/mm3 (150-400); RDW Coefficient Variation 15.2 % (11.7-14.2); RDW Standard Deviation 50.1 fL (35.1-46.3); Red Blood Cell Count 3.75 M/mm3 (4.30-5.90); White Blood Cell Count 11.54 K/mm3 (4.00-11.30)
[2019-02-24 16:24] LABS: Source, Urine Catheter
[2019-02-24] MEDS ORDERED: OMEPRAZOLE20 MG PO (16:27)
[2019-02-24] MEDS ORDERED: NITR100CA PO (16:29)
[2019-02-24 16:33] LABS: Appearance, Urine Hazy (Clear); Bilirubin, Urine Neg (Neg); Blood, Urine 2+ (Neg); Color, Urine Yellow (P-Yellow); Glucose Qualitative, Urine Neg (Neg); Ketones, Urine Neg (Neg); Leukocyte Esterase, Urine 3+ (Neg); Nitrite, Urine Neg (Neg); Protein, Urine Neg (Neg); Specific Gravity, Urine 1.015 (1.003-1.022); Urobilinogen, Urine NORM (Normal)
[2019-02-24 16:53] LABS: Albumin, Blood 2.6 g/dL (3.4-5.0); Albumin/Globulin Ratio 0.4 (0.8-1.8); Bilirubin, Total 0.2 mg/dL (0.1-1.0); Bun/Creatinine Ratio 22.4 (12.0-20.0); Calcium, Blood 8.9 mg/dL (8.5-10.1); Creatinine, Blood 3.3 mg/dL (0.60-1.20); Globulin, Blood 5.8 g/dL (2.2-4.0); Potassium, Blood 5.5 mmol/L (3.5-5.5); Total Protein, Blood 8.4 g/dL (6.4-8.2)
[2019-02-24 16:54] LABS: Red Blood Cells, Urine 0-2 /hpf (0-2); White Blood Cells, Urine TNTC /hpf (0-5)
[2019-02-24 16:55] LABS: Bacteria Few /hpf; Squamous Epithelial Cells Rare /hpf (Few); Transitional Epithelial Cells Few /hpf (0-Rare)
[2019-02-24 16:59] LABS: Other Crystals Many /hpf
[2019-02-24] MEDS ORDERED: INSULANPEN SC (17:11)
[2019-02-24] MEDS ORDERED: Humalog100 UNIT/1 SC (17:13)
[2019-02-24] MEDS ORDERED: GLIM4 PO (17:15)
[2019-02-24] MEDS ORDERED: Pedi-Dri 100,0060 GM TOP (17:16)
[2019-02-24] MEDS ORDERED: GUAI600T33 PO (20:47)
[2019-02-24] MEDS ORDERED: Culturelle1 CAP PO (20:49)
--- NOTE | 2019-02-25 03:31 | NUR ---
NOC SHIFT SUMMARY RECIEVED REPORT FROM [facility] ED RN AT 1999 AND PT WAS THEN TRANSFERED TO THE FLOOR. ARRIVED AAOX4 BUT EXTREMELY SLEEPY WHICH I WAS INFORMED WAS PT CONDITON IN ED. WHEN AWOKEN HE ANSWERES QUESTIONS APPROPRIATLEY BUT FALLS BACK SO SLEEP SOON AFTER. ON ASSESMENT PT HAS A RED COCCYX THOUGH IT IS BLANCHABLE. PILLOWS PLACED UNDER SIDE TO OFSET WEIGHT. BOTH HEALS HAVE LARGE SORES ON THEM PHOTOS HAVE BEEN TAKEN AND ARE IN CHART. URINE CATHETER PLACED IN ED IS PATENT. AND DRAINING CLEAR YELLOW URINE. PT IS ON 3L VIA NC AND SATS IN MID 90'S. SINCE ADMIT HE HAS LARGELY SLEPT THROUGH THE NIGHT. AWAKENS DURING REPOSITIONS AND WHEN VITALS ARE TAKEN. PRESENTLY APPEARS IN NO ACUTE DISTRESS. HEALS ARE BEING FLOATED. WILL CONTINUE TO MONITOR.
[2019-02-25 05:29] LABS: BASOPHILS ABSOLUTE AUTO 0.04 K/mm3 (0.00-0.23); BASOPHILS PERCENT AUTO 1 % (0-2); EOSINOPHILS ABSOLUTE AUTO 0.21 K/mm3 (0.00-0.68); EOSINOPHILS PERCENT AUTO 3 % (0-6); Hematocrit 30.7 % (37.0-53.0); Hemoglobin 9.6 g/dL (13.5-17.5); IMMATURE GRAN ABSOLUTE AUTO 0.03 K/mm3 (0.00-0.10); IMMATURE GRAN PERCENT AUTO 0 % (0-1); LYMPHOCYTES ABSOLUTE AUTO 0.92 K/mm3 (0.84-5.20); LYMPHOCYTES PERCENT AUTO 12 % (21-46); MONOCYTES ABSOLUTE AUTO 0.56 K/mm3 (0.16-1.47); MONOCYTES PERCENT AUTO 7 % (4-13); Mean Corpuscular HGB 28.7 pg (26.0-34.0); Mean Corpuscular HGB Conc 31.3 g/dL (31.5-36.5); Mean Corpuscular Volume 92 fL (80-100); Mean Platelet Volume 9.7 fL (9.1-12.4); NEUTROPHILS ABSOLUTE AUTO 5.99 K/mm3 (1.96-9.15); NEUTROPHILS PERCENT AUTO 77 % (41-73); Platelet Count 224 K/mm3 (150-400); RDW Coefficient Variation 15.2 % (11.7-14.2); RDW Standard Deviation 51.4 fL (35.1-46.3); Red Blood Cell Count 3.34 M/mm3 (4.30-5.90); White Blood Cell Count 7.75 K/mm3 (4.00-11.30)
[2019-02-25 05:58] LABS: Bun/Creatinine Ratio 21.6 (12.0-20.0); Calcium, Blood 8.5 mg/dL (8.5-10.1); Creatinine, Blood 2.83 mg/dL (0.60-1.20); Potassium, Blood 5.6 mmol/L (3.5-5.5)
--- NOTE | 2019-02-25 10:44 | NUR ---
PT LETHARGIC, AND SLOW TO RESPOND/AWAKEN, SLOWER THAN THIS AM. PT WAS DIFFICULT TO AWAKEN THIS MORNING, BUT WAS ABLE TO OPEN EYES, SIT UP AND FEED SLEF BREAKFAST. AT THIS TIME, PT TAKING MORE TIME TO AWAKEN. DOES NOT OPEN EYES, SEEMS VERY DROWSY. PT DOES ANSWER SOME QUESTIONS AND FOLLOWS COMMANDS, SQUEEZING THIS RN'S HANDS AND MOVING ARMS. VSS. DR. DUVAL NOTIFIED OF PT STATUS AT THIS TIME, STAT ABG ORDERED. WILL CTM.
[2019-02-25 11:05] LABS: PCO2 Arterial 43.8 mmHg (35-45); PO2 Arterial 67.5 mmHg (80-100)
[2019-02-25 11:08] LABS: pH Blood Arterial 7.24 (7.35-7.45)
--- NOTE | 2019-02-25 11:53 | NUR ---
DR. RAM IN PT ROOM AT ABOUT 1147
--- NOTE | 2019-02-25 16:25 | NUR ---
AT ABOUT 1510 PT'S IN ROOM AND MYSELF TO TURN PT. PT IS AGAIN VERY SLOW TO AWAKEN, PT OPENS EYES, BUT DOES NOT RESPOND TO QUESTIONS OR FOLLOW DIRECTIONS TO SUPPLY COORDINATOR THIS RN'S HANDS. NEURO ASSESSMENT COMPLETED WITH NO CHANGE, PUPILS ARE REACTIVE AND WNL. VSS. DR. DUVAL NOTIFIED THAT PT SEEMS TO BE EVEN MORE LETHARGIC THAN THIS AFTERNOON. ORTHO CONSULT CALLED, NO OTHER ORDERS AT THIS TIME. AT THIS TIME THIS RN ALSO DISCUSSED PT STATUS AND ORDERS WITH DESK MANAGER, ASHLEY. ASHLEY IN ROOM TO ALSO ASSESS PT AT ABOUT 1520. ASHLEY REPORTS THAT SHE ALSO SPOKE WITH DR. DUVAL. WILL CTM PT STATUS, PT FAMILY IS AT BEDSIDE
--- NOTE | 2019-02-25 18:38 | NUR ---
SUMMARY: PT ADMITTED FOR ENCEPHALOPATHY. SEE PREVIOUS NOTES BY THIS RN. PT CONTINUES TO BE DROWSY AND LETHARGIC. PT ABLE TO RESPOND TONIGHT WITH NODDING "YES" AND "NO", HAS NOT SPOKE. PT ABLE TO PROP WORKER HANDS AND FOLLOW COMMANDS BETTER. PT HAS ONLY ATE BREAKFAST TODAY, AND DRANK SOME FLUIDS, OTHERWISE HAS BEEN TOO SLEEPY. FAMILY AT BEDSIDE AND PLAN OF CARE/PT STATUS DISCUSSED. PT TURNED AND POSITIONED FOR COMFORT Q2, PRN. VSS ALL DAY TODAY. PLAN IS FOR ORTHO TO SEE PT TOMORROW AND DISCUSS PLAN FOR POSSIBLE AMPUTATION, BILAT BKA. FAMILY IS AWARE. WILL PASS REPORT TO NOC RN.
--- NOTE | 2019-02-26 04:51 | NUR ---
NOC SHIFT SUMMARY PT CONTINUES TO BE VERY SLEEPY. HE AWAKENS TO VOICE AND WHEN AWAKE IS AAOX4. HE IS ON 2L NC AND RESP ARE EVEN AND UNLABORED. REPOSITOINED THROUGH THE NIGHT TO PREVENT WORSENING OF SORE ON COCCYX OR FORMATION OF NEW SORE. VSS. NO STATUS CHANGES NOTED THOUGH THIS SHIFT. PT APPEARS IN NO ACUTE DISTRESS. WILL CONTINUE TO MONITOR.
[2019-02-26 04:53] LABS: BASOPHILS ABSOLUTE AUTO 0.04 K/mm3 (0.00-0.23); BASOPHILS PERCENT AUTO 1 % (0-2); EOSINOPHILS ABSOLUTE AUTO 0.21 K/mm3 (0.00-0.68); EOSINOPHILS PERCENT AUTO 3 % (0-6); Hematocrit 30.8 % (37.0-53.0); Hemoglobin 9.5 g/dL (13.5-17.5); IMMATURE GRAN ABSOLUTE AUTO 0.04 K/mm3 (0.00-0.10); IMMATURE GRAN PERCENT AUTO 1 % (0-1); LYMPHOCYTES ABSOLUTE AUTO 0.76 K/mm3 (0.84-5.20); LYMPHOCYTES PERCENT AUTO 12 % (21-46); MONOCYTES PERCENT AUTO 8 % (4-13); Mean Corpuscular HGB 28.7 pg (26.0-34.0); Mean Corpuscular HGB Conc 30.8 g/dL (31.5-36.5); Mean Corpuscular Volume 93 fL (80-100); Mean Platelet Volume 9.4 fL (9.1-12.4); NEUTROPHILS ABSOLUTE AUTO 4.67 K/mm3 (1.96-9.15); NEUTROPHILS PERCENT AUTO 75 % (41-73); Platelet Count 220 K/mm3 (150-400); RDW Coefficient Variation 15.4 % (11.7-14.2); RDW Standard Deviation 52.8 fL (35.1-46.3); Red Blood Cell Count 3.31 M/mm3 (4.30-5.90); White Blood Cell Count 6.22 K/mm3 (4.00-11.30)
[2019-02-26 05:13] LABS: Albumin, Blood 2.1 g/dL (3.4-5.0); Albumin/Globulin Ratio 0.4 (0.8-1.8); Bilirubin, Total 0.1 mg/dL (0.1-1.0); Bun/Creatinine Ratio 20.1 (12.0-20.0); Calcium, Blood 8.6 mg/dL (8.5-10.1); Creatinine, Blood 2.14 mg/dL (0.60-1.20); Globulin, Blood 4.9 g/dL (2.2-4.0); Potassium, Blood 5.4 mmol/L (3.5-5.5)
--- NOTE | 2019-02-26 14:27 | NUR ---
Initial palliative care consult: Requested by family and friend, Modesta, who's senior living Pari is planning on moving into, to have meeting to discuss plan of care moving forward. Met with pt and family at 1150 this morning. Pari napped off and on during this visit and reported that he did not have any pain. Pari is an 88 year old gentleman who has been residing at [facility] since Oct 2018. 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 He awakens when spoken to, but drifts in and out of sleep during the visit. He states to this process description writer that it is ok to speak with his family about his medical issues and care. Pt's , Kathy, and grown son, Willam, and DIL, Susi, are present during the meeting. They report that Sherlyn in discharge planning had spoken to them about a hospice option earlier this morning. There is no documentation at the time of my visit to reflect that conversation. Family has many questions about current diagnosis, lab values, current plan of care and when Dr. Hicks will be in to consult with Pari. Reviewed his diagnoses, labs and answered questions re: current treatment plan. Spoke with Dr. Hicks who plans to meet with pt and family to discuss his recommendations later this afternoon. Will plan to follow up with pt's family once they have had a chance to talk to Dr. Hicks. Pt's family report that they have paid a deposit for Mod[place]'s foster home for Pari to be able to go. They state if his plan of treatment involves IV antibiotics, he will not be able to go to [facility] until his IV antibitics are complete. Plan of care and discharge plan TBD after Dr. Hicks meets with pt and family to determine a treatment plan.
--- NOTE | 2019-02-26 15:06 | NUR ---
PERMISSION FOR CARE I, DURAN ANN A [facility] CHICLE GRINDER FEEDER, RECIEVED PERMISSION FROM THIS PATIENT ON 02/26/2019 TO PROVIDE CARE ON 02/27/2019.
--- NOTE | 2019-02-26 17:50 | NUR ---
SHIFT SUMMARY- PT A/O, PLESANT AND COOPERATIVE. PT AND SON AT BEDSIDE FOR MUCH OF THIS SHIFT. CHANGED BANDAGES ON COCCYX AND BILATERAL HEEL. DR. LARA IN TO CONSULT. RECOMENDED BILATERAL AMPUTATION. PUT PT ON SURGICAL SCHEDULE WHILE PT AND FAMILY DISCUSS OPTIONS. PT IS MORE AWAKE THAN HE HAS BEEN PREVIOUSLY PER . PT EATING SMALL AMOUNTS.
--- NOTE | 2019-02-27 03:28 | NUR ---
PT REFUSED ALL MEDS AT HS. STATED HE HAD A CONVERSATION WITH MARINA TODAY AND DECIDED NOT TO TAKE ANY MORE PILLS. REFUSED HEPARIN INJECTION AND INSULIN WELL. PT WAS COUGHING AND SOB AND REFUSED PRN RESP TREATMENT AGAIN STATING HE MADE A PROMISE TO MARINA. PT ANSWERING QUESTIONS APPROPRIATELY AND ORIENTED X 3. TEMP ELEVATED, ENCOURAGED PT TO TAKE TYLENOL, REFUSED BUT DID ACCEPT A COLD WASHCLOTH ON HIS FOREHEAD.
--- NOTE | 2019-02-27 04:36 | NUR ---
PT'S TEMP INCREASING. PULSE ELEVATED. PT DENYING PAIN. STATES HE IS AWARE HE MAY BE DEVELOPING A WORSENING INFECTION DUE TO FEVER AND PULSE. PT REFUSING ALL TREATMENT. REFUSING MEDS. REFUSING ATTENDS CHECKS. SPOKE WITH CHARGE NURSE. PT IS ORIENTED TO PERSON, PLACE, AND SITUATION. RESPECING RIGHT TO REFUSE AT THIS TIME.
--- NOTE | 2019-02-27 04:42 | NUR ---
PT RESFUSED AN ATTENDS CHANGE WELL REFUSED MEDICATION FOR FEVER. THE CHARGE NURSE WAS NOTIFIED AND SPOKE WITH THE PT, THE PT STILL REFUSED.
[2019-02-27 05:01] LABS: BASOPHILS ABSOLUTE AUTO 0.03 K/mm3 (0.00-0.23); BASOPHILS PERCENT AUTO 0 % (0-2); EOSINOPHILS ABSOLUTE AUTO 0.05 K/mm3 (0.00-0.68); EOSINOPHILS PERCENT AUTO 1 % (0-6); Hematocrit 28.9 % (37.0-53.0); Hemoglobin 9.2 g/dL (13.5-17.5); IMMATURE GRAN ABSOLUTE AUTO 0.04 K/mm3 (0.00-0.10); IMMATURE GRAN PERCENT AUTO 1 % (0-1); LYMPHOCYTES ABSOLUTE AUTO 0.94 K/mm3 (0.84-5.20); LYMPHOCYTES PERCENT AUTO 12 % (21-46); MONOCYTES ABSOLUTE AUTO 0.72 K/mm3 (0.16-1.47); MONOCYTES PERCENT AUTO 9 % (4-13); Mean Corpuscular HGB 28.1 pg (26.0-34.0); Mean Corpuscular HGB Conc 31.8 g/dL (31.5-36.5); Mean Platelet Volume 9.4 fL (9.1-12.4); NEUTROPHILS ABSOLUTE AUTO 6.27 K/mm3 (1.96-9.15); NEUTROPHILS PERCENT AUTO 78 % (41-73); Platelet Count 200 K/mm3 (150-400); RDW Standard Deviation 48.5 fL (35.1-46.3); Red Blood Cell Count 3.27 M/mm3 (4.30-5.90); White Blood Cell Count 8.05 K/mm3 (4.00-11.30)
[2019-02-27 05:04] LABS: Mean Corpuscular Volume 88 fL (80-100)
[2019-02-27 05:17] LABS: Alanine Aminotransfer (ALT/SGP 11 U/L (12-78); Albumin, Blood 2.1 g/dL (3.4-5.0); Albumin/Globulin Ratio 0.4 (0.8-1.8); Alk Phos 113 U/L (50-136); Anion Gap 8 mmol/L (6-16); Aspartate Aminotrans (AST/SGOT 16 U/L (12-37); Bilirubin, Total 0.2 mg/dL (0.1-1.0); Blood Urea Nitrogen 28 mg/dL (8-24); Bun/Creatinine Ratio 17.1 (12.0-20.0); CO2, Blood 18 mmol/L (21-32); Calcium, Blood 8.7 mg/dL (8.5-10.1); Chloride, Blood 112 mmol/L (98-108); Creatinine, Blood 1.64 mg/dL (0.60-1.20); Globulin, Blood 5.1 g/dL (2.2-4.0); Glomerular Filtration Rate 43 (60-); Glucose, Blood 205 mg/dL (70-99); Sodium, Blood 138 mmol/L (136-145); Total Protein, Blood 7.2 g/dL (6.4-8.2); Vancomycin, Random 10.1 ug/mL
--- NOTE | 2019-02-27 05:25 | NUR ---
SHIFT SUMMARY: PT REFUSED ALL TREATMENTS TONIGHT. ALLOWED CATH TO BE SECURED AND EMPTIED, ALLOWED AM BLOOD DRAW. ALLOWED ICE PACK. REFUSED TO BE CHECKED FOR STOOL INCONTINENCE. DENIES PAIN. DRESSING ON B HEELS C/D/I. UNSURE OF STATE OF DRSG ON SACCRUM D/T REFUSAL TO TURN. PT HAS REMAINED NPO SINCE MIDNIGHT.
--- NOTE | 2019-02-27 12:33 | NUR ---
History, Chart, Medications and Allergies reviewed before start of procedure. Lungs clear T/O to Auscultation. Patient confirms NPO status and agrees with scheduled surgery. Pre-Op teaching done. Pt verbalizes understanding.
--- NOTE | 2019-02-27 12:40 | NUR ---
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
[2019-02-27 15:40] LABS: Hemoglobin 10.4 g/dL (13.5-17.5)
--- NOTE | 2019-02-27 16:11 | NUR ---
REPORT CALLED TO STAFF INTERPRETER, PT GOING TO ICU POST SURGERY
[2019-02-27 18:30] LABS: Hematocrit 33.3 % (37.0-53.0); Hemoglobin 10.5 g/dL (13.5-17.5)
--- NOTE | 2019-02-27 18:53 | NUR ---
ARRIVAL TO ICU PATIENT ARRIVED TO ICU FROM OR AT 1820. PATIENT HAS TEMP OF 99.2 DEGREES FAHRENHEIT. PATIENT CONFUSED AND CONTINUES TO STATE THAT HE WANTS TO GO HOME. BROUGHT INTO ROOM AND PATIENT HAS SINCE CALMED DOWN AND IS RELAXING IN BED WITH AT BEDSIDE. PATIENT [place]. PATIENT DENIES PAIN OR DISCOMFORT. PATIENT HAS VERY MOIST, STRONG COUGH. PATIENT SATTING 90% AND GREATER ON 2 L NC. PATIENT RA AT HOME. PATIENT IN ST, HR IN THE 120S. SBP 130S TO 160S. SCALES IN PLACE, DRAINING YELLOW COLORED URINE. BUTTOCKS/ COCCYX REDDENED. PATIENT HAD BILAT BKAS IN OR. STUMP SOCKS IN PLACE. ANGELICA DRAIN TO EACH STUMP. NS STARTED AT 80 MLS/ HOUR PER DR. LARA'S ORDER IN [facility]. BAG MACHINE SET UP OPERATOR REPORTED THAT PATIENT HAD 2 UNIT PRBCS IN OR. BED LOW, CALL LIGHT IN REACH. PATIENT ORIENTED TO UNIT, ROOM AND CALL SYSTEM. REPORT WILL BE GIVEN TO ASSUMING [employer] [place] PRESS LABORER NURSE SHORTLY.
--- NOTE | 2019-02-27 20:00 | NUR ---
ASSUMED CARE OF PT AT 1915. REPORT RECEIVED AT BEDSIDE. PT PRESENTS IN BED. ALERT AND ORIENTED. PLEASANT AND COOPERATIVE WITH CARE AND ASSESSMENT. IS MILDLY ANXIOUS. FAMILY AT BEDSIDE. PT DENIES PAIN AT THIS TIME. HAS BI LATERAL ANGELICA DRAINS. 30 ML EMPTIED FROM LEFT ANGELICA, AND 5 ML EMPTIED FROM RIGHT. TEACHING DONE. DRESSINGS AND STUMP SOCKS ON BI LAT BKA'S. WILL REVIEW CHART AND PLAN OF CARE FOR THIS PT.
--- NOTE | 2019-02-28 00:06 | NUR ---
PT CONTINUES TO DENY PAIN AT THIS TIME. HAS BEEN ABLE TO USE CALL LIGHT TO ASK FOR ASSISTANCE WITH TURNS. PT STATES THAT HE IS NOT ANXIOUS. ALSO ADDS THAT HE DOES NOT WANT TO GO BACK TO [facility]. STATED THAT HE FELT, "PARANOID THERE". PT CONTINUES WITH MOIST COUGH WITH CLEAR SECRETIONS. PROVIDED PT WITH A YAUNKEUR SO HE CAN SELF CLEAR HIMSELF. HE HAS STATED THAT THIS HAS BEEN VERY HELPFUL. PT REMAINS WITH TACHYCARDIA, WITH RATES 100-120'S. CONTINUES ON 2 L/M PER NASAL CANNULA. WILL CONTINUE TO MONITOR PT.
[2019-02-28 03:33] LABS: BASOPHILS ABSOLUTE AUTO 0.08 K/mm3 (0.00-0.23); BASOPHILS PERCENT AUTO 1 % (0-2); EOSINOPHILS ABSOLUTE AUTO 0.13 K/mm3 (0.00-0.68); EOSINOPHILS PERCENT AUTO 1 % (0-6); Hematocrit 27.6 % (37.0-53.0); Hemoglobin 8.7 g/dL (13.5-17.5); IMMATURE GRAN ABSOLUTE AUTO 0.05 K/mm3 (0.00-0.10); IMMATURE GRAN PERCENT AUTO 1 % (0-1); LYMPHOCYTES PERCENT AUTO 10 % (21-46); MONOCYTES ABSOLUTE AUTO 0.89 K/mm3 (0.16-1.47); MONOCYTES PERCENT AUTO 8 % (4-13); Mean Corpuscular HGB 28.9 pg (26.0-34.0); Mean Corpuscular HGB Conc 31.5 g/dL (31.5-36.5); Mean Platelet Volume 9.3 fL (9.1-12.4); NEUTROPHILS ABSOLUTE AUTO 8.46 K/mm3 (1.96-9.15); NEUTROPHILS PERCENT AUTO 79 % (41-73); Platelet Count 189 K/mm3 (150-400); RDW Coefficient Variation 15.2 % (11.7-14.2); RDW Standard Deviation 50.5 fL (35.1-46.3); Red Blood Cell Count 3.01 M/mm3 (4.30-5.90); White Blood Cell Count 10.71 K/mm3 (4.00-11.30)
[2019-02-28 03:34] LABS: Mean Corpuscular Volume 92 fL (80-100)
--- NOTE | 2019-02-28 03:44 | NUR ---
HEART RATES REMAIN IN 110'S TO 120'S. BLOOD PRESSURES REMAIN WNL. PER VITAL SIGN FLOWSHEET WITH SBP'S IN 90'S THIS IS PT HAVING BLOOD PRESSURE CUFF ELEVATED. ANGELICA DRAINS REMAIN TO SUCTION. SPOKE WITH CHACE BAUM - HOSPITALIST. ORDER RECEIVED FOR NORCO, AND FENTANYL FOR BREAKTHROUGH PAIN. DID MEDICATE PT WITH 1 NORCO. PT HAD PAIN WHICH HE DESCRIBED "MY FEET". RATED PAIN 5/10. PT HAS NOT HAD ANY FURTHER COMPLAINTS AFTER MEDICATION. REMAINS ON 5 L/M OXYGEN PER NASAL CANNULA WHILE SLEEPING. WILL CONTINUE TO MONITOR.
--- NOTE | 2019-02-28 06:41 | NUR ---
NO CHANGES FROM PREVIOUS ASSESSMENTS. PT HAS BEEN ABLE TO USE YAUNKUER WITH GOOD AFFECT TO CLEAR HIS SECRETIONS. 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 RIGHT ANGELICA WITH 10 ML SAME. PT STATES THAT THE ONE NORCO 5/325 WAS AFFECTIVE TO RELIEVE HIS POST OP PAIN. WILL CONTINUE TO MONITOR PT, AND WILL REPORT OFF TO ONCOMING RN.
--- NOTE | 2019-02-28 08:10 | NUR ---
ASSUMED CARE: REPORT RECEIVED FROM KUSHAL Shi RN. ASSUMED CARE OF THIS PT AT APPROX 0700. ON ASSESSMENT, THE PT IS A&O, BUT SOMEWHAT FORGETFUL. HE HAS C/O PAIN TO L FOOT, NEEDING GENTLE REMINDERS THAT AMPUTATIONS OCCURED YESTERDAY & IS RECEPTIVE TO THIS. LS ARE CLEAR T/O, PT ON 2L NC FOR OCCASIONAL DESATS TO 88%, PRODUCTIVE COUGH & PT USING YANKAUR TO SELF-SUCTION. MONITOR SHOWS AFLUTTER, HR 120s, BP STABLE. NO GI/ COMPLAINTS, SCALES PATENT/ DRAINING. BILAT BKA STUMPS W/ STOCKINGS IN PLACE. ANGELICA DRAINS x2, ONE TO EACH SIDE. R SIDE W/ LESS OUTPUT THAN L SIDE ANGELICA. SKIN OVERALL CDI. WILL CONTINUE TO MONITOR & UPDATE NEEDED.
--- NOTE | 2019-02-28 11:10 | NUR ---
DR LARA: PROVIDER AT BEDSIDE TO EVAL PT. STS OKAY TO BE SURGICAL STATUS W/ TELE. ELEVATED HR DISCUSSED & PROVIDER STS THAT PT HAD ELEVATED HR PRIOR TO SURGERY ALSO. WILL CONTINUE TO MONITOR & UPDATE NEEDED.
--- NOTE | 2019-02-28 15:51 | NUR ---
TRANSFER TO SURGICAL FLOOR: REPORT HAS BEEN GIVEN TO OREN Ledesma RN TO ASSUME CARE. ALL BELONGINGS, CHART & MEDS HAVE BEEN TAKEN W/ PT. WILL CONTINUE TO MONITOR & UPDATE NEEDED.
--- NOTE | 2019-02-28 17:53 | NUR ---
SUMMARY ASSUMED CARE OF PT APPROX 1545. ARRIVED IN RECLINER. PT/OT WORKED WITH HIM SHORTLY AFTER ARRIVAL. DECLINES PAIN MEDS WITH DINNER. STATES PAIN IS TOLERABLE AND POINTS AT "FEET". PT IS PLEASANTLY CONFUSED. ORIENTED TO SELF, PLACE, AND FAMILY ONLY.
--- NOTE | 2019-03-01 07:42 | NUR ---
PT WITH STRONG COUGH THIS AM. WAS ABLE TO USE IS.HOWEVER, COUGH SOUNDS WET THIS AM. PT IS ON O2. WHEN ASKED, DOES ADMIT TO MILD SOB. SL IV.LABS BEING DRAWN AT THIS TIME. I CALLED TO HOSPITALIST OFFICE REGARDING PT AND TO ASK FOR POSSIBLITY OF LASIX PT HAS EDEMA. ALSO SWELLING IS NOTED AT PRIOR IV SITES, BUT PT CURRENTLY HAS PATENT IV.HOSPITALIST OFFICE RETURNED CALL AND STATED DR CROWLEY WILL BE CALLING ME. I ADVISED HER I WOULD LIKE PT SEEN IF POSSIBLE.
[2019-03-01 08:03] LABS: BASOPHILS ABSOLUTE AUTO 0.07 K/mm3 (0.00-0.23); BASOPHILS PERCENT AUTO 0 % (0-2); EOSINOPHILS ABSOLUTE AUTO 0.14 K/mm3 (0.00-0.68); EOSINOPHILS PERCENT AUTO 1 % (0-6); Hemoglobin 9.6 g/dL (13.5-17.5); IMMATURE GRAN ABSOLUTE AUTO 0.07 K/mm3 (0.00-0.10); IMMATURE GRAN PERCENT AUTO 0 % (0-1); LYMPHOCYTES PERCENT AUTO 8 % (21-46); MONOCYTES PERCENT AUTO 7 % (4-13); Mean Corpuscular HGB 29.1 pg (26.0-34.0); Mean Corpuscular Volume 94 fL (80-100); Mean Platelet Volume 9.4 fL (9.1-12.4); NEUTROPHILS ABSOLUTE AUTO 12.89 K/mm3 (1.96-9.15); NEUTROPHILS PERCENT AUTO 83 % (41-73); Platelet Count 170 K/mm3 (150-400); RDW Coefficient Variation 15.5 % (11.7-14.2); RDW Standard Deviation 53.3 fL (35.1-46.3); White Blood Cell Count 15.57 K/mm3 (4.00-11.30)
[2019-03-01 08:28] LABS: Vancomycin, Trough 14.9 ug/mL (5.0-10.0)
[2019-03-01 08:31] LABS: Bun/Creatinine Ratio 11.5 (12.0-20.0); Calcium, Blood 7.9 mg/dL (8.5-10.1); Creatinine, Blood 1.31 mg/dL (0.60-1.20); Potassium, Blood 4.9 mmol/L (3.5-5.5)
--- NOTE | 2019-03-01 17:52 | NUR ---
SHIFT SUMMARY: PT GIVEN IV LASIX THIS MORNING FOR SOB AND CRACKLES IN LOWER LOBES. PT DENYING SOB SINCE. PT WITH EXPIRATORY WHEEZING IN UPPER LOBES. GIVEN BREATHING TREATMENTS T/O SHIFT. ENOCURAGED AND EDUCATED ON IS. PT DEMONSTRATED. PT REMAINS TO BE SINUS TACHYCARDIA AND ASYMPTOMATIC. PT REPOSTIONED FREQUENTLY. MEPILEX TO COCCYX CHANGED. BILATERAL STUMPS ELEVATED ON PILLOW. DR. LARA IN THIS MORNING AND REMOVED BOTH ANGELICA DRAINS. PT ENCOURAGED TO STRAIGHTEN LEG BUT IS HAVING A DIFFICULT TIME. GIVEN TYLENOL ONCE FOR C/O LOWER BACK PAIN. ABX INFUSING PER EMAR, OTHERWISE SALINE LOCKED AND CHELSEA PO. SCALES WITH ADEQUATE AMOUNT OF URINE OUTPUT. URINE CLEAR AND YELLOW. CBG'S RANGING IN 200'S AND COVERED WITH INSULIN PER EMAR. PT FORGETFUL AT TIMES.
--- NOTE | 2019-03-01 18:09 | NUR ---
Inital spiritual care note: Mr. Cervantes appeared a bit confused when I visisted. He sais he was "desperate for companionship" as his family had "abandoned" him. "My and son both work and they have not been to see me." According to RN, both have been present and appear loving/attentive. Mr. Cervantes also expressed sadness about the loss of his legs and the life changes this will bring. As we began to gain rapport, a member of the [employer] arrived. I asked Mr. Cervantes if he was a member of this congregational. He told me he is "thinking about it." Mr. Cervantes then turned his attention to his new visitor and no longer responded to me. [employer] Coordinator services will remain available.
--- NOTE | 2019-03-01 20:11 | NUR ---
WTIH VS BASE WAD OPERATOR ADJUSTER NOTED SATS ON 5L N/C 80-83 %.PT C/O SOB,ABD PAIN,NAUSEA. PLACED ON 14L OXIMYZER WITH SATS NOTED 92 -94%. PT RECEIVED LASIX TODAY AND HAD BEEN RECEIVING NEBS T/O DAY WELL.EKG FROM AM ALSO NOTED. PT CONT TACHY 120 THIS AM TO 130 AT THIS TIME.TACHYPNEAC.RT CALLED TO ROOM NEB STARTED. HOB UP.I CALLED SARIKA AND ADVISED OF ABOVE. SARIKA TO ROOM. PT BEING TRANSFERRED TO PCU.
--- NOTE | 2019-03-01 21:16 | NUR ---
ATTEMPTED TO CALL AND UPDATE ON STATUS AND NEEDING HIGHTER LEVEL OF CARE, NO ANSWER, LEFT MESSAGE.
--- NOTE | 2019-03-01 21:19 | NUR ---
CALLED BACK AND UPDATED ON STATUS AND THAT PT WILL BE MOVED TO PCU 11.
[2019-03-01 23:00] LABS: International Normalized Ratio 1.05; Prothrombin Time Results 11.2 Sec (9.7-11.5)
[2019-03-02 05:29] LABS: BASOPHILS ABSOLUTE AUTO 0.07 K/mm3 (0.00-0.23); BASOPHILS PERCENT AUTO 0 % (0-2); EOSINOPHILS ABSOLUTE AUTO 0.03 K/mm3 (0.00-0.68); EOSINOPHILS PERCENT AUTO 0 % (0-6); Hemoglobin 8.6 g/dL (13.5-17.5); IMMATURE GRAN ABSOLUTE AUTO 0.12 K/mm3 (0.00-0.10); IMMATURE GRAN PERCENT AUTO 1 % (0-1); LYMPHOCYTES ABSOLUTE AUTO 1.14 K/mm3 (0.84-5.20); LYMPHOCYTES PERCENT AUTO 6 % (21-46); MONOCYTES ABSOLUTE AUTO 1.12 K/mm3 (0.16-1.47); MONOCYTES PERCENT AUTO 6 % (4-13); Mean Corpuscular HGB 29.3 pg (26.0-34.0); Mean Corpuscular HGB Conc 31.9 g/dL (31.5-36.5); Mean Corpuscular Volume 92 fL (80-100); Mean Platelet Volume 9.2 fL (9.1-12.4); NEUTROPHILS PERCENT AUTO 86 % (41-73); Platelet Count 219 K/mm3 (150-400); RDW Coefficient Variation 15.4 % (11.7-14.2); RDW Standard Deviation 51.4 fL (35.1-46.3); Red Blood Cell Count 2.94 M/mm3 (4.30-5.90); White Blood Cell Count 17.98 K/mm3 (4.00-11.30)
--- NOTE | 2019-03-02 05:35 | NUR ---
SHIFT SUMMARY PT RESTING IN ROOM COMFORTABLY AT THIS TIME. PT HAS HAD MULTIPLE EPISDOES OF DESATING ON 02 SINCE ARRIVAL. PT CAME TO UNIT ON BIPAP W/ 5L BLEED IN. WAS NAUSEOUS UPON ARRIVAL AND BIPAP WAS REPLACED W/ OXIMZER, PT WAS TITRATED UP TO 15L OXIMIZER TO KEEP SATS >88%. PT WAS PLACED BACK ON BIPAP AT MAX SETTINGS WITH RT ADVISING TO CALL IF DESAT AGAIN, AND PT WOULD NEED TO BE MOVED TO V60 BIPAP INSTEAD. PT TOLERATED BIPAP FOR APPROX 1 HOUR THEN TOOK MAS OFF AND SATS FELL TO 70'S. RT CALLED AND PT PLACED ON NEW SETTINGS ON V60 BIPAP W/ SATS >92%. PT TOLERATED NEW BIPAP WELL. PT CURRENTLY TAKING BREAK FROM BIPAP ON 11L OXIMZER AT THIS TIME SATS >92%. HEPARIN GTT INFUSING IN PIV PER PHARMACY PROTOCOL. [facility] SIT[facility] APPEAR WNL AND C/D/I. MONITORING CLOSELY FOR SIGNS OF BLEEDING. CALL LIGHT IN REACH, BED ALARM ON. WILL GIVE BEDSIDE REPORT TO ONCOMING RN.
[2019-03-02 05:47] LABS: Bun/Creatinine Ratio 12.4 (12.0-20.0); Creatinine, Blood 1.69 mg/dL (0.60-1.20); Potassium, Blood 4.9 mmol/L (3.5-5.5)
--- NOTE | 2019-03-02 09:02 | NUR ---
AM NOTE... ASSUMED CARE OF PT APROX 0700. PT IS A&Ox4 WITH CONFUSION AT TIMES. CURRENTLY PT IS ON OXYMIZER AT 13L. PT RR IS 22-24 EVEN AND UNLABORED. PT STATES HE FEELS BETTER THAN YESTERDAY. OTHER VS STABLE AT THIS TIME. PT WAS MEDICATED FOR PAIN PER EMAR. YORDY IS PATENT AND DRAINING TO GRAVITY. CALL LIGHT IN REACH WILL CONTINUE TO MONITOR.
[2019-03-02 10:55] LABS: Adenovirus Not Detected (NOT DETECT); Bordetella pertussis Not Detected (NOT DETECT); Chlamydophila pneumoniae Not Detected (NOT DETECT); Coronavirus 229E Not Detected (NOT DETECT); Coronavirus HKU1 Not Detected (NOT DETECT); Coronavirus NL63 Not Detected (NOT DETECT); Coronavirus OC43 Not Detected (NOT DETECT); Human Metapneumovirus Not Detected (NOT DETECT); Human Rhinovirus/Enterovirus Not Detected (NOT DETECT); Influenza A Not Detected (NOT DETECT); Influenza A/2009-H1 Not Detected (NOT DETECT); Influenza A/H1 Not Detected (NOT DETECT); Influenza A/H3 Not Detected (NOT DETECT); Influenza B Not Detected (NOT DETECT); Mycoplasma pneumoniae Not Detected (NOT DETECT); Parainfluenza Virus 1 Not Detected (NOT DETECT); Parainfluenza Virus 2 Not Detected (NOT DETECT); Parainfluenza Virus 3 Not Detected (NOT DETECT); Parainfluenza Virus 4 Not Detected (NOT DETECT); Respiratory Syncytial Virus Not Detected (NOT DETECT)
--- NOTE | 2019-03-02 14:34 | NUR ---
PT UPDATE... PT'S BP HAS BEEN TRENDING DOWN, RECHECK WAS DONE AND HIS BP WAS 74/34 HR 87. PT WAS RESPONDING TO VERBAL STIMULI. PROVIDER WAS CALLED AND ORDERS OBTAINED FOR 250MLS BOLUS. BOLUS STARTED WILL CONTINUE TO MONITOR.
--- NOTE | 2019-03-02 15:23 | NUR ---
PT UPDATE.. ORDERS TO TRANSFER PT TO ICU PER PROVIDER. PT ON THE BIPAP AT 14/6 AND 80%FIO2. C/O OF NAUSEA, PT MEDICATED W/ZOFRAN. REPORT WAS GIVEN TO RUBBER CUTTER AND PT W/ALL BELONGINGS PACKED AND SENT WITH THE PT.
[2019-03-02 15:30] LABS: PCO2 Arterial 48.4 mmHg (35-45); PO2 Arterial 69.8 mmHg (80-100); pH Blood Arterial 7.33 (7.35-7.45)
--- NOTE | 2019-03-02 16:00 | NUR ---
PT ADMIT PT ADMIT VIA BED WITH BIPAP IN PLACE FROM PCU. PT INITIALLY HYPOTENSIVE WITH SBP IN THE 60S, MD BEDSIDE AND DOPAMINE INITIATED PER MD ORDER. HR IN THE 80S SR AND WEAK PULSES T/O. SBP RESPONDING TO DOPA BUT RAY INITIATED CONSTANTINO [place] RESPONCE AND WEANING DOPA OFF PER PROTOCOL AND WILL WEAN LEVO WHEN APROP FOR MAP GOAL GREATER THAN 65. CENTRAL LINE STARTED AT BEDSIDE AND CLEAR TO USE. PT RECEIVED 250ML BOLUS IN PCU NO BOLUS ON ADMIT. SATS IN THE HIGH 80S AND RT AND MD BEDSIDE WITH INCREASE IN IPAP AND FIO2. COURSE T/O, STAT CXR OBTAINED. NPO AT THIS MELANIA ABD SOFT ROUND AND OBESE. UO MINIMAL VIA SCALES. BILAT LE AMPUTATION SURGICAL INCISION SITES SUTURED, CDI WITH MINIMAL REDNESS AND NO/S/S OF INFECTION. MEPILEX IN PLACE. WILL CONT TO MONITOR AND WEAN VASOACTIVES TOLERATED.
[2019-03-02 16:04] LABS: BASOPHILS ABSOLUTE AUTO 0.11 K/mm3 (0.00-0.23); BASOPHILS PERCENT AUTO 1 % (0-2); EOSINOPHILS PERCENT AUTO 1 % (0-6); Hematocrit 31.3 % (37.0-53.0); Hemoglobin 9.7 g/dL (13.5-17.5); IMMATURE GRAN ABSOLUTE AUTO 0.14 K/mm3 (0.00-0.10); IMMATURE GRAN PERCENT AUTO 1 % (0-1); LYMPHOCYTES ABSOLUTE AUTO 1.32 K/mm3 (0.84-5.20); LYMPHOCYTES PERCENT AUTO 7 % (21-46); MONOCYTES ABSOLUTE AUTO 1.28 K/mm3 (0.16-1.47); MONOCYTES PERCENT AUTO 7 % (4-13); Mean Corpuscular Volume 94 fL (80-100); Mean Platelet Volume 9.2 fL (9.1-12.4); NEUTROPHILS ABSOLUTE AUTO 16.54 K/mm3 (1.96-9.15); NEUTROPHILS PERCENT AUTO 85 % (41-73); Platelet Count 289 K/mm3 (150-400); RDW Coefficient Variation 15.7 % (11.7-14.2); Red Blood Cell Count 3.34 M/mm3 (4.30-5.90); White Blood Cell Count 19.59 K/mm3 (4.00-11.30)
[2019-03-02 16:29] LABS: Albumin, Blood 1.9 g/dL (3.4-5.0); Albumin/Globulin Ratio 0.3 (0.8-1.8); Bilirubin, Total 0.4 mg/dL (0.1-1.0); Bun/Creatinine Ratio 13.3 (12.0-20.0); Calcium, Blood 8.3 mg/dL (8.5-10.1); Creatinine, Blood 1.8 mg/dL (0.60-1.20); Globulin, Blood 5.6 g/dL (2.2-4.0); Total Protein, Blood 7.5 g/dL (6.4-8.2)
[2019-03-02 16:51] LABS: Troponin I 1.99 ng/mL (0.000-0.040)
--- NOTE | 2019-03-02 17:06 | NUR ---
theraputic time with pt family arrived dr reese at bedside assessing wounds. will follow up with family.
--- NOTE | 2019-03-02 18:00 | NUR ---
PT UPDATE PT REMAINS NEURO INTACT FOLLOWING COMMANDS AND ALERT AND ORIENT. LEVO OFF SBP IN THE 11OS, SR AND TOLERATING THUS FAR. TOLERATING BIPAP WITH SATS WNL AND NO S/S OF RESP DISTRESS. ABD SOFT ROUND AND OBESE. UO MINIMAL, CLEAR AND YELLOW VIA SCALES. WILL CONT TO MONITOR
--- NOTE | 2019-03-02 19:00 | NUR ---
ASSUMED CARE ASSUMED CARE OF PATIENT. FAMILY AT BEDSIDE. ROUSES TO VERAL STIMULI. ORIENTED TO FAMILY, SELF, AND PLACE. FORGETFUL AT TIMES. PT IS ON BIPAP- 14/10, BUR 10, FIO2 70%. RR 20s. OCCASIONALLY PULLS BIPAP OFF. MONITOR SHOWS SR, RATE 70s. LEVOPHED REMAINS OFF AT THIS TIME- BP STABLE. SCALES PATENT AND DRAINING DARK YELLOW URINE. BLE BKA NOTED- DRSG C/D/I. SEE SHIFT ASSESSMENT FOR FULL ASSESSMENT.
--- NOTE | 2019-03-02 20:30 | NUR ---
SAT PROBE FOREHEAD PROBE MOVED TO RIGHT SIDE OF FOREHEAD AT THIS TIME.
--- NOTE | 2019-03-02 21:10 | NUR ---
BIPAP ATTEMPTED BREAK FROM BIPAP FOR MEDICATION ADMINISTRATION. HFNC INITIALLY AT 10L- SATS DECREASED TO MID 80s. MEDS WERE GIVEN AND PT PLACED BACK ON BIPAP.
--- NOTE | 2019-03-03 00:05 | NUR ---
SAT PROBE FOREHEAD PROBE OFF AT THIS TIME.
[2019-03-03 04:26] LABS: Base Excess Venous -0.8 mmol/L; Bicarbonate Venous 23.5 mmol/L (24.0-30.0); PCO2 Venous 51.8 mmHg (38-42); PO2 Venous 61.2 mmHg (38-42)
[2019-03-03 04:30] LABS: BASOPHILS ABSOLUTE AUTO 0.07 K/mm3 (0.00-0.23); BASOPHILS PERCENT AUTO 1 % (0-2); EOSINOPHILS ABSOLUTE AUTO 0.18 K/mm3 (0.00-0.68); EOSINOPHILS PERCENT AUTO 1 % (0-6); Hematocrit 25.1 % (37.0-53.0); Hemoglobin 7.9 g/dL (13.5-17.5); IMMATURE GRAN ABSOLUTE AUTO 0.08 K/mm3 (0.00-0.10); IMMATURE GRAN PERCENT AUTO 1 % (0-1); LYMPHOCYTES ABSOLUTE AUTO 1.05 K/mm3 (0.84-5.20); LYMPHOCYTES PERCENT AUTO 7 % (21-46); MONOCYTES ABSOLUTE AUTO 0.86 K/mm3 (0.16-1.47); MONOCYTES PERCENT AUTO 6 % (4-13); Mean Corpuscular HGB 29.5 pg (26.0-34.0); Mean Corpuscular HGB Conc 31.5 g/dL (31.5-36.5); Mean Corpuscular Volume 94 fL (80-100); Mean Platelet Volume 9.4 fL (9.1-12.4); NEUTROPHILS ABSOLUTE AUTO 11.91 K/mm3 (1.96-9.15); NEUTROPHILS PERCENT AUTO 84 % (41-73); Platelet Count 228 K/mm3 (150-400); RDW Coefficient Variation 15.5 % (11.7-14.2); RDW Standard Deviation 52.9 fL (35.1-46.3); Red Blood Cell Count 2.68 M/mm3 (4.30-5.90); White Blood Cell Count 14.15 K/mm3 (4.00-11.30)
[2019-03-03 04:47] LABS: Bun/Creatinine Ratio 15.2 (12.0-20.0); Calcium, Blood 8.1 mg/dL (8.5-10.1); Creatinine, Blood 1.91 mg/dL (0.60-1.20)
--- NOTE | 2019-03-03 05:51 | NUR ---
SHIFT SUMMARY NO ACUTE CHANGES. REMAINED ON BIPAP T/O NOC. ATTEMPTED SHORT BREAKS ON HFN, BUT PT QUICKLY DESATURATES TO MID 80s. BIPAP 14/10, BUR 10, FIO2 BETWEEN 70-80%. FIO2 NOW AT 70%. RR 20s. OCCASIONAL MOIST COUGH. PT CONTINUES TO OCCASIONALLY PULL ON BIPAP MASK. VS STABLE T/O NOC. HEPARIN GTT NOW INFUSING @ 16UNITS/KG/HR PER PHARMACY. [facility] CENTRAL LINE PATENT, DRSSammi C/D/I. BILATERAL BKA WITH DRSARA D/I. MEDICATED WITH NORCO X 1 FOR C/O BLE AND BACK PAIN. FAMILY AT BEDSIDE. WILL REPORT TO DAY SHIFT RN WHEN AVAILABLE.
--- NOTE | 2019-03-03 08:23 | NUR ---
CARE ASSUMED REPORT RECEIVED, CARE ASSUMED AT 0700 FROM SILVIA BEARD. DURING BEDSIDE REPORT, PT REQUESTING SIPS OF WATER. PT PROVIDED WITH SIPS OF WATER AND BEGAN COUGHING WITH NO MOVEMENT OF AIR. PT PROVIDED WITH ORAL SUCTION AND CLEARED WATER FROM AIRWAY, BUT CONTINUES TO HAVE MOIST COUGH FOLLOWING INCIDENT. FAMILY AT BEDSIDE AT TIME OF INCIDENT. EDUCATED PATIENT AND FAMILY THAT PT WILL NEED TO STAY NPO FROM THIS POINT FORWARD AND FAMILY IS AGREEABLE, PT'S EX STATES, "IT HAS BEEN A PROGRESSIVE THING SO THIS DOES NOT SUPRISE ME. IT'S OK." PT'S EX SUPPORTIVE IN PROVIDING PT WITH REASSURANCE AND REMINDERS TO WHY HE IS NOTHING PER MOUTH AT THIS TIME. OTHERWISE, PT ORIENTED TO SELF AND LOCATION. KNOWS IT IS FEBRUARY, BUT BELIEVES IT IS 1999. DOES NOT KNOW THE DAY. VERY SLOW TO RESPOND AND DROWSY. SPO2 90'S ON BIPAP 14/10, FIO2 50%. PT DOES DESATURATE WITH REPOSITIONING. LOW GRADE FEVER PRESENT. BLOOD PRESSURE WITH MAPS 60-65. HR 80'S, NSR. PT DOES REPORT 4/10 PAIN, BUT AGREES TO REPOSITIONING FOR MANAGEMENT AT THIS TIME. REQUIRES MODERATE ASSIST FOR REPOSITIONING. HEPARIN GTT INFUSING PER ORDERS. PT AND FAMILY DENY NEEDS AT THIS TIME.
--- NOTE | 2019-03-03 08:57 | NUR ---
PROVIDER COMMUNICATION DR. BECKMAN AT BEDSIDE FOR ASSESSMENT. AWARE THAT PT NOT TOLERATING PO CARDIAC MEDICATIONS AT THIS TIME AND WILL REMAIN NPO. NO NEW ORDERS. WILL ALSO DISCUSS WITH HOSPITALIST ON HOSPITALIST ROUNDING.
--- NOTE | 2019-03-03 09:56 | NUR ---
PROVIDER COMMUNICATION DR. TENORIO TO BEDSIDE FOR ASSESSMENT. DISCUSSED PT'S INABILITY TO TOLERATE PO INTAKE. NEW ORDER FOR INSERTION OF DOBHOFF FOR FEEDINGS AND MEDICATIONS. RESPIRATORY JUAREZ, PLANNING FOR CHEST PHYSIOTHERAPY. ALSO RECEIVED OK TO GIVE PT BREAKS FROM BIPAP PT TOLERATES. NEW ORDER TO START LASIX. DISCUSSED BP WITH MAP IN 50'S. PER DR. TENORIO, REASSESS LATER TODAY TO SEE IF BLOOD PRESSURE CAN TOLERATE THIS MEDICATION BEING GIVEN BUT HOLD FOR NOW.
--- NOTE | 2019-03-03 10:37 | NUR ---
PROVIDER COMMUNICATION SPOKE WITH DR. BECKMAN PT'S ST DEPRESSION NOTED TO BE SLIGHTLY MORE PROMINENT. SEE RHYTHM STRIPES. NO NEW ORDERS, CONTINUE TO MONITOR.
--- NOTE | 2019-03-03 11:49 | NUR ---
RESPIRATORY STATUS/ DOBHOFF INSERTION GAVE PT BREAK ON BIPAP PER PATIENT REQUEST. INITIALLY, 6 LPM HIGH FLOW NASAL CANNULA PLACED. PT'S O2 SATURATIONS NOT MAINTAINED, INCREASED O2 TO 10 LPM HIGH FLOW, AFTER APPROXIMATELY 5 MINUTES PT DESATURATED INTO THE LOW-MID 80'S AND WAS DROPPING QUICKLY, AND REQUIRED BIPAP MAP BE PLACED ON. WILL INSERT DOBHOFF WHEN PT HAS HAD TIME TO RECOVER ON BIPAP.
[2019-03-03 17:09] LABS: Hematocrit 24.3 % (37.0-53.0); Hemoglobin 7.5 g/dL (13.5-17.5)
--- NOTE | 2019-03-03 19:20 | NUR ---
SUMMARY SINCE PREVIOUS NOTE, PT'S BP BORDERLINE. PER DR. TENORIO, OK TO HOLD OFF ON PRESSORS IF SYSTOLIC IS GREATER THAN 90 OR MAP IS GREATER THAN 60. PT HAS MAINTAINED THIS FOR MAJORITY OF AFTERNOON. DISCUSSED HELD MEDS FROM THIS MORNING, AND PER DR. TENORIO, ONLY GIVE LASIX AT THIS TIME, START PRESSORS IF NEEDED TO MANAGE BLOOD PRESSURE. THIS WAS NOT REQUIRED. ALSO DISCUSSED H&H WITH DR. TENORIO. REPEAT H&H ORDERED AND GREATER THAN 7, SO NO NEED TO TRANSFUSE PER DR. TENORIO. PLACEMENT OF DOBHOFF VERIFIED BY DR. TENORIO AND TUBE FEEDS STARTED AT 1600. PT HAS TOLERATED WITHOUT PAIN, DISCOMFORT, NAUSEA OR BLOATING. DRESSINGS CHANGED TO BILATERAL AMPUTATIONS PER ORDERS, SEE ASSESSMENTS. PT HAS DENIED PAIN AT ALL THIS AFTERNOON EXCEPT WITH DRESSING CHANGE. PT HAS BEEN CALM AND SLEEPY, BUT AROUSES FOR REASSESSMENTS AND TO PARTICIPATE IN CARES. PT HAS HAD FAMILY AT BEDSIDE THE ENTIRE SHIFT WHO ARE VERY INVOLVED IN CARE AND PROVIDE PT WITH EMOTIONAL SUPPORT. PT STRUGGLING TO ARTICULATE NEEDS WELL, BUT DOES ANSWER YES/NO QUESTIONS APPROPRIATELY AND IS COMFORTED BY FREQUENT REPOSITIONING. ATTEMPTED BREAK FROM BIPAP THIS AFTERNOON WHICH PT DID NOT TOLERATE. SEE RT NOTE. SEE REPEAT ASSESSMENTS/FLOWSHEETS. HEPARIN GTT PER ORDERS.
--- NOTE | 2019-03-03 19:27 | NUR ---
REPORT TO SILVIA CARL TO ASSUME CARE
--- NOTE | 2019-03-03 20:00 | NUR ---
ASSUMPTION OF CARE: PT AWAKE. ON BIPAP 27/11, 40%. SPO2 >90%. LUNG SOUNDS CLEAR AND DIM IN BASES. IN SR, MAP >60. DOBHOFF IN PLACE WITH TF AT 20MLS/HR. RIJ INFUSING. HEPARIN INF AT 17 U/KG/HR. BKA-DRESSING C/D/I. FAMILY AT BEDSIDE. WILL CONTINUE TO MONITOR
--- NOTE | 2019-03-03 23:39 | NUR ---
TF INCREASED TO 30ML/HR
[2019-03-04 04:07] LABS: BASOPHILS ABSOLUTE AUTO 0.04 K/mm3 (0.00-0.23); BASOPHILS PERCENT AUTO 0 % (0-2); EOSINOPHILS ABSOLUTE AUTO 0.15 K/mm3 (0.00-0.68); EOSINOPHILS PERCENT AUTO 2 % (0-6); Hematocrit 22.6 % (37.0-53.0); Hemoglobin 7.1 g/dL (13.5-17.5); IMMATURE GRAN ABSOLUTE AUTO 0.04 K/mm3 (0.00-0.10); IMMATURE GRAN PERCENT AUTO 0 % (0-1); LYMPHOCYTES ABSOLUTE AUTO 0.73 K/mm3 (0.84-5.20); LYMPHOCYTES PERCENT AUTO 8 % (21-46); MONOCYTES PERCENT AUTO 7 % (4-13); Mean Corpuscular HGB 29.2 pg (26.0-34.0); Mean Corpuscular HGB Conc 31.4 g/dL (31.5-36.5); Mean Corpuscular Volume 93 fL (80-100); Mean Platelet Volume 9.3 fL (9.1-12.4); NEUTROPHILS ABSOLUTE AUTO 7.76 K/mm3 (1.96-9.15); NEUTROPHILS PERCENT AUTO 83 % (41-73); Platelet Count 231 K/mm3 (150-400); RDW Coefficient Variation 15.5 % (11.7-14.2); RDW Standard Deviation 52.7 fL (35.1-46.3); Red Blood Cell Count 2.43 M/mm3 (4.30-5.90); White Blood Cell Count 9.42 K/mm3 (4.00-11.30)
[2019-03-04 04:25] LABS: Bun/Creatinine Ratio 15.9 (12.0-20.0); Calcium, Blood 7.8 mg/dL (8.5-10.1); Creatinine, Blood 1.95 mg/dL (0.60-1.20); Phosphorus, Blood 3.7 mg/dL (2.5-4.9); Potassium, Blood 4.1 mmol/L (3.5-5.5)
--- NOTE | 2019-03-04 06:11 | NUR ---
SHIFT SUMMARY: PT RESTING MAJORITY OF SHIFT. FAMILY AT BEDSIDE. BIPAP 14/10, FIO2 45%. SPO2 >90%. LUNG SOUNDS CLEAR WITH OCC WHEEZES AND DIM AT BASES. PT IN SR, SBP STABLE IN THE 100S. DOBHOFF IN PLACE WITH CTF AT 30ML/HR-GOAL IS 55. RIJ IN PLACE INFUSING WITH HEPARIN AT 19U/KG/HR. PT HAS RECENT BKA-DRESSING IN C/D/I. TEMP SCALES IN PLACE DRAINING YELLOW URINE. WILL PASS OFF REPORT TO ONCOMING RN
--- NOTE | 2019-03-04 07:47 | NUR ---
NEURO CHANGES - DR. TENORIO COMMUNICATION BEDSIDE REPORT RECEIVED, CARE ASSUMED AT 0700 FROM SILVIA CARL. PT'S ASSESSMENT REVEALS PT ORIENTED TO SELF ONLY. MASK TAKEN OFF FOR ASSESSMENT AND WHEN ASKED HOW PATIENT IS DOING, HE REPEATEDLY SHAKES HIS HEAD BACK AND FORTH. DENIES PAIN. DOES NOT RECOGNIZE GRANDDAUGHTER, STAFF, OR KNOW WHERE HE IS AT. LEFT PUPIL APPEARS 0.5 MM BIGGER THAN OTHER SIDE. LYMY, CHIMNEY BUILDER HELPER IN FOR SECOND OPINION AND AGREE POSSIBLE SMALL DISCREPANCY BUT MINIMAL IF AT ALL. BOTH ARE REACTIVE. PT HAS EQUAL STRENGTH BILATERALLY. SPOKE WITH DR. TENORIO REGARDING THESE FINDINGS. ORDER TO DISCONTINUE HEPARIN AND DRAW VBG. PT'S GRANDDAUGHTER AT BEDSIDE AND UPDATED ON PLAN.
[2019-03-04 08:19] LABS: Base Excess Venous 2.2 mmol/L; Bicarbonate Venous 26.1 mmol/L (24.0-30.0); PCO2 Venous 50.3 mmHg (38-42); PO2 Venous 67.2 mmHg (38-42); pH Blood Venous 7.35 (7.34-7.37)
--- NOTE | 2019-03-04 08:56 | NUR ---
PROVIDER COMMUNICATION DR. TENORIO UPDATED ON VBG RESULTS. NO NEW ORDERS AT THIS TIME. PT'S NEURO ASSESSMENT UNCHANGED.
--- NOTE | 2019-03-04 18:44 | NUR ---
SUMMARY THROUGHOUT DAY PT HAS BECOME MUCH MORE ALERT AND ORIENTED. SEE REPEAT ASSESSMENTS. PT SPENT APPROX 3 HOURS OF DAY ON AIRVO AND TOLERATED WELL. BACK ON BIPAP THIS EVENING. PT ABLE TO ARTICULATE PAIN LEVEL AND MEDICATED PER EMAR. SINCE THEN, PT HAS BEEN MUCH MORE RELAXED AND PEACEFUL, NO LONGER FIDGETING AND NEEDING LESS REPOSITIONING. FAMILY HAS BEEN AT BEDSIDE MAJORITY OF DAY AND EDUCATED AND AGREEABLE WITH PLAN OF CARE. BP/HR STABLE THROUGHOUT SHIFT. HEPARIN HAS BEEN OFF PER DR. TENORIO AND PT HAS DECLINED CHEST PAIN THROUGHOUT SHIFT. PT DID DESCRIBE, "IT'S JUST HARD TO BREATH," BUT THIS RESOLVED ONCE PLACED BACK ON BIPAP. DR. ESQUIVEL IN FOR ROUNDING THIS EVENING, NO NEW ORDERS. GOOD OUTPUT FROM SCALES. STILL NO BOWEL MOVEMENT TO SEND TO LAB TO ASSESS FOR GUIAC.
[2019-03-04 18:46] LABS: Vancomycin, Trough 25.6 ug/mL (5.0-10.0)
--- NOTE | 2019-03-04 18:56 | NUR ---
REPORT TO SILVIA MEJIA TO ASSUME CARE
--- NOTE | 2019-03-04 19:45 | NUR ---
BEDSIDE REPORT RECEIVED. PATIENT RESTING QUIETLY AWAKENS TO SLIGHT STIMULI FOLLOWING DIRECTIONS WELL AND NODDING YES AND NO TO QUESTIONS. BIPAP IN PLACE SET AT 14/10 FIO2 40% AIRVO AT BEDSIDE FOR SHORT BREAKS. TUBE FEEDING TUBING CHANGED HAS JEVITY 1.5 AT 50CC/HR WITH WATER FLUSH OF 100 Q4HR. BILAT LEG DRESSINGS CD&I. NO COMPLAINTS AT THIS TIME, FAMILY AT BEDSIDE PROVIDING GOOD SUPPORT.
--- NOTE | 2019-03-04 21:12 | NUR ---
OFF BIPAP AND PLACED ON AIRVO FOR ORAL CARE. REDNESS NOTED TO TIP OF PENIS DURING CATH CARE, NYSTATIN POWDER PLACED JONATHAN AREA. PATIENT ABLE TO HOLD CONVERSATION WITH FAMILY AT BEDSIDE. PATIENT ASSISTING WITH REPOSITIONING IN BED.
[2019-03-05 04:24] LABS: BASOPHILS ABSOLUTE AUTO 0.03 K/mm3 (0.00-0.23); BASOPHILS PERCENT AUTO 0 % (0-2); EOSINOPHILS ABSOLUTE AUTO 0.13 K/mm3 (0.00-0.68); EOSINOPHILS PERCENT AUTO 2 % (0-6); Hematocrit 22.8 % (37.0-53.0); IMMATURE GRAN ABSOLUTE AUTO 0.03 K/mm3 (0.00-0.10); IMMATURE GRAN PERCENT AUTO 0 % (0-1); LYMPHOCYTES PERCENT AUTO 9 % (21-46); MONOCYTES PERCENT AUTO 9 % (4-13); Mean Corpuscular HGB 28.7 pg (26.0-34.0); Mean Corpuscular HGB Conc 30.7 g/dL (31.5-36.5); Mean Corpuscular Volume 93 fL (80-100); Mean Platelet Volume 9.5 fL (9.1-12.4); NEUTROPHILS PERCENT AUTO 80 % (41-73); Platelet Count 237 K/mm3 (150-400); RDW Coefficient Variation 15.1 % (11.7-14.2); RDW Standard Deviation 51.5 fL (35.1-46.3); Red Blood Cell Count 2.44 M/mm3 (4.30-5.90); White Blood Cell Count 7.99 K/mm3 (4.00-11.30)
[2019-03-05 04:48] LABS: Magnesium, Blood 2.1 mg/dL (1.6-2.4)
[2019-03-05 04:49] LABS: Anion Gap 5 mmol/L (6-16); Blood Urea Nitrogen 30 mg/dL (8-24); CO2, Blood 31 mmol/L (21-32); Calcium, Blood 7.9 mg/dL (8.5-10.1); Chloride, Blood 101 mmol/L (98-108); Creatinine, Blood 1.76 mg/dL (0.60-1.20); Glomerular Filtration Rate 39 (60-); Glucose, Blood 223 mg/dL (70-99); Phosphorus, Blood 3.3 mg/dL (2.5-4.9); Potassium, Blood 4.1 mmol/L (3.5-5.5); Sodium, Blood 137 mmol/L (136-145); Vancomycin, Random 22.2 ug/mL
--- NOTE | 2019-03-05 06:43 | NUR ---
SUMMARY PATIENT SLEEPING OFF AND ON WITH BIPAP IN PLACE T/O NIGHT. RESTLESS AND TIMES, ASSISTING WITH REPOSITIONING. TUBE FEEDING NOW AT GOAL RATE OF 55/HR PATIENT HAVING NO C/O NAUSEA OR FEELING FULL. FAMILY AT BEDSIDE T/O NIGHT. DRESSINGS TO BOTH LEGS REMAIN CD&I WITH STUMP SOCKS IN PLACE.
--- NOTE | 2019-03-05 07:42 | NUR ---
CARE ASSUMED REPORT RECEIVED, CARE ASSUMED AT 0700 FROM SILVIA MEJIA. PT SLEEPING, AROUSES EASILY FOR ASSESSMENT. REPORTS BEING UNCOMFORTABLE, PT REPOSITIONED AND DENIES FURTHER NEEDS. PT ORIENTED, FOLLOWING DIRECTIONS. BIPAP IN PLACE. VITALS STABLE. PT'S GRANDDAUGHTER AT BEDSIDE. SEE ASSESSMENT/FLOWSHEET.
--- NOTE | 2019-03-05 11:51 | NUR ---
DR. JANE LARA TO BEDSIDE FOR ASSESSMENT. DRESSINGS CHANGED MY MD. NO NEW ORDERS.
--- NOTE | 2019-03-05 11:55 | NUR ---
DOBHOFF PLACEMENT NOTED ON REASSESSMENT THAT DOBHOFF IS OUT TO 25 WHEN IT WAS AT 75 AFTER INSERTION AND ON MORNING ASSESSMENT. READVANCED. PT TOLERATED WELL. REPEAT CHEST X-RAY ORDERED TO CONFIRM PLACEMENT.
--- NOTE | 2019-03-05 13:40 | NUR ---
DOBHOFF PLACEMENT NOTIFIED BY RADIOLOGY THAT DOBHOFF HAD LOOPED. WHILE ATTEMPTING TO REMOVE, RESISTANCE WAS MET. UNABLE TO GET DOBHOFF OUT ENTIRELY. SECOND RN ATTEMPTED UNSUCCESSFULLY. PT CALM, RESTING IN BETWEEN ATTEMPTS. DR. PINA PAGED AND TO BEDSIDE. PER DR. PINA, DOBHOFF HAD LOOPED IN KNOT AND WAS REMOVED VIA PULLING KNOT INTO ORAL CAVITY, CUTTING, AND REMOVING THE REST OF THE WAY THROUGH NOSE. AT THIS TIME, PT REFUSES REINSERTION. ASKED DR. PINA ABOUT REPEAT BEDSIDE SWALLOW EVALUATION PT IS ALERT, ORIENTED AND FOLLOWING DIRECTIONS. PER DR. PINA, OK TO TRY BEDSIDE SWALLOW EVALUATION TOMORROW IF HE MAINTAINS ALERTNESS CONSISTENTLY, BUT UNTIL THEN NPO AND HOLD TUBE FEEDS.
--- NOTE | 2019-03-05 18:51 | NUR ---
SUMMARY THIS AFTERNOON, PT MUCH MORE ALERT, TALKATIVE AND PARTICIPATING IN CONVERSATIONS. PT HAS TOLERATED AIRVO MAJORITY OF AFTERNOON. CONTINUES TO HAVE LARGE AMOUNT OF SECRETIONS AND USES ORAL SUCTION INDEPENDENTLY. PT CALLING APPROPRIATELY, ARTICULATING NEEDS CLEARLY. SCALES DISCONTINUED THIS AFTERNOON, PT HAVING SOME CHALLENGES WITH URINATION. ATTEMPTED TO URINATE MULTIPLE TIMES. THIS EVENING ABLE TO HAVE SMALL VOID, AND WILL ENCOURAGE PT TO TRY FREQUENTLY TO PREVENT NEEDING RECATHETERIZED. STILL NO BOWEL MOVEMENT. SCHEDULED DUCOSATE GIVEN PER ORDERS. BOWEL SOUNDS HYPOACTIVE. ABD NONTENDER. PT TOLERATING NPO STATUS WELL WITH ORAL CARE. PT HAS NOT REQUIRED PAIN MEDICATION SO LONG HE HAS BEEN FREQUENTLY REPOSITIONED. VITALS STABLE THROUGHOUT SHIFT.
--- NOTE | 2019-03-05 19:44 | NUR ---
PATIENT RESTING IN BED WITH AIRVO IN PLACE, MOIST PRODUCTIVE COUGH, USING ORAL SUCTION WITHOUT DIFFICULTY. NO COMPLAINTS AT THIS TIME.
[2019-03-06 00:39] LABS: Stool Occult Blood Guaiac 1 Neg (Neg)
--- NOTE | 2019-03-06 01:11 | NUR ---
ATTEMPT TO HAVE PATIENT WEAR BIPAP PATIENT BECOMING ANXIOUS AND PULLING OFF BIPAP PATIENT VERBALIZED THAT HE FEELS IF HE NOT GETTING ANY OXYGEN, PLACED BACK ON AIRVO AND PATIENT MORE RELAXED, MAINTAINING OXYGEN SAT >91%
[2019-03-06 04:45] LABS: BASOPHILS ABSOLUTE AUTO 0.04 K/mm3 (0.00-0.23); BASOPHILS PERCENT AUTO 0 % (0-2); EOSINOPHILS ABSOLUTE AUTO 0.07 K/mm3 (0.00-0.68); EOSINOPHILS PERCENT AUTO 1 % (0-6); Hematocrit 25.4 % (37.0-53.0); Hemoglobin 8.1 g/dL (13.5-17.5); IMMATURE GRAN ABSOLUTE AUTO 0.05 K/mm3 (0.00-0.10); IMMATURE GRAN PERCENT AUTO 1 % (0-1); LYMPHOCYTES ABSOLUTE AUTO 0.83 K/mm3 (0.84-5.20); LYMPHOCYTES PERCENT AUTO 9 % (21-46); MONOCYTES ABSOLUTE AUTO 0.67 K/mm3 (0.16-1.47); MONOCYTES PERCENT AUTO 7 % (4-13); Mean Corpuscular HGB 29.1 pg (26.0-34.0); Mean Corpuscular HGB Conc 31.9 g/dL (31.5-36.5); Mean Corpuscular Volume 91 fL (80-100); Mean Platelet Volume 9.6 fL (9.1-12.4); NEUTROPHILS ABSOLUTE AUTO 7.85 K/mm3 (1.96-9.15); NEUTROPHILS PERCENT AUTO 83 % (41-73); Platelet Count 323 K/mm3 (150-400); RDW Coefficient Variation 14.9 % (11.7-14.2); Red Blood Cell Count 2.78 M/mm3 (4.30-5.90); White Blood Cell Count 9.51 K/mm3 (4.00-11.30)
[2019-03-06 05:01] LABS: Anion Gap 7 mmol/L (6-16); Blood Urea Nitrogen 25 mg/dL (8-24); Bun/Creatinine Ratio 14.4 (12.0-20.0); CO2, Blood 31 mmol/L (21-32); Calcium, Blood 8.4 mg/dL (8.5-10.1); Chloride, Blood 101 mmol/L (98-108); Creatinine, Blood 1.74 mg/dL (0.60-1.20); Glomerular Filtration Rate 40 (60-); Glucose, Blood 169 mg/dL (70-99); Magnesium, Blood 2.1 mg/dL (1.6-2.4); Phosphorus, Blood 2.5 mg/dL (2.5-4.9); Potassium, Blood 4.1 mmol/L (3.5-5.5); Sodium, Blood 139 mmol/L (136-145); Vancomycin, Random 17.6 ug/mL
--- NOTE | 2019-03-06 07:47 | NUR ---
SUMMARY PATIENT SLEEPING OFF AND ON T/O NIGHT WITH AIRVO IN PLACE. ATTEMPT TO PLACE BIPAP AND PATIENT VERBALIZED THAT HE FELT IF HE WASN'T GETTING AIR WITH BIPAP IN PLACE. PATIENT ABLE TO MAINTAIN BIOX 88-96% ON AIRVO. AT TIMES PATIENT SLIGHTLY FORGETFUL, REORIENTATION EASILY. PATIENT USING URINAL FREQUENTLY T/O NIGHT WITH SMALL AMT OF URINE OUT, THIS MORNING PATIENT ABLE TO VOID A LARGER AMT WITH FEELING IF HE WAS ABLE TO EMPTY HIS BLADDER. ATTENDS REMAIN IN PLACE FOR OCCASIONAL INCONT. PATIENT HAD SMALL HARD BM, STOOL SENT FOR OB.
--- NOTE | 2019-03-06 13:15 | NUR ---
REASSESSMENT: PT HAS BEEN RESTING IN BED THROUGHOUT THE MORNING. PT PASSED BEDSIDE SWALLOW EVAL SO DIET PLACED AND DR. PINA AWARE. SOFT DIET ORDERED TO HELP KEEP PT FROM TIRING WHILE EATING. PT'S LUNGS HAVE FEW CRACKLES IN THE BASES, RT TITRATING OXYGEN DOWN ABLE. SR, BP STABLE. PT HAS BEEN ABLE TO VOID THROUGHOUT THE MORNING. HE IS VOIDING SMALL AMTS IN THE URINAL AND HAD A LARGE AMT IN HIS ATTENDS WELL. PT HAS HAD MULTIPLE FAMILY MEMBERS IN THROUGHOUT THE DAY. ALL HAVE BEEN UPDATED AND ALL QUESTIONS ANSWERED.
--- NOTE | 2019-03-06 16:43 | NUR ---
SHIFT SUMMARY PT HAS BEEN ALERT AND ORIENTED THIS SHIFT. HE WORE THE AIRVO ALL DAY AND IT HAS BEEN TITRATED DOWN TO 40L AND 40%. HE IS STILL COUGHING UP A SMALL AMT OF THICK WHITE SPUTUM WHICH HE USES THE YANKAUER TO SUCTION HIMSELF. LUNGS REMAIN CLEAR WITH JUST A FEW CRACKLES IN THE BASES. HE IS SR, BP STABLE. HE HAS BEEN VOIDING IN THE URINAL AND IN HIS ATTENDS. HE ATE A SMALL AMT OF LUNCH AND HAS BEEN DRINKING SOME WATER WITHOUT ANY SIGNS OF ASPIRATION. DRESSINGS ON HIS LEGS CHANGED. SMALL AMT OF DRAINAGE ON R DRESSING. INCISIONS LOOK WELL APPROXIMATED, NO REDNESS. PT AND ALL FAMILY HAS BEEN UPDATED THROUGHOUT THE DAY. ALL QUESTIONS HAVE BEEN ANSWERED.
[2019-03-07 05:00] LABS: BASOPHILS ABSOLUTE AUTO 0.06 K/mm3 (0.00-0.23); BASOPHILS PERCENT AUTO 1 % (0-2); EOSINOPHILS ABSOLUTE AUTO 0.21 K/mm3 (0.00-0.68); EOSINOPHILS PERCENT AUTO 3 % (0-6); Hematocrit 25.5 % (37.0-53.0); Hemoglobin 7.9 g/dL (13.5-17.5); IMMATURE GRAN ABSOLUTE AUTO 0.05 K/mm3 (0.00-0.10); IMMATURE GRAN PERCENT AUTO 1 % (0-1); LYMPHOCYTES ABSOLUTE AUTO 1.03 K/mm3 (0.84-5.20); LYMPHOCYTES PERCENT AUTO 14 % (21-46); MONOCYTES PERCENT AUTO 8 % (4-13); Mean Corpuscular HGB 28.9 pg (26.0-34.0); Mean Corpuscular Volume 93 fL (80-100); Mean Platelet Volume 9.6 fL (9.1-12.4); NEUTROPHILS ABSOLUTE AUTO 5.39 K/mm3 (1.96-9.15); NEUTROPHILS PERCENT AUTO 73 % (41-73); Platelet Count 336 K/mm3 (150-400); RDW Coefficient Variation 15.2 % (11.7-14.2); RDW Standard Deviation 51.7 fL (35.1-46.3); Red Blood Cell Count 2.73 M/mm3 (4.30-5.90); White Blood Cell Count 7.34 K/mm3 (4.00-11.30)
[2019-03-07 05:20] LABS: Anion Gap 6 mmol/L (6-16); Blood Urea Nitrogen 24 mg/dL (8-24); Bun/Creatinine Ratio 13.9 (12.0-20.0); CO2, Blood 34 mmol/L (21-32); Calcium, Blood 8.4 mg/dL (8.5-10.1); Chloride, Blood 100 mmol/L (98-108); Creatinine, Blood 1.73 mg/dL (0.60-1.20); Glomerular Filtration Rate 40 (60-); Glucose, Blood 176 mg/dL (70-99); Magnesium, Blood 2.2 mg/dL (1.6-2.4); Potassium, Blood 3.8 mmol/L (3.5-5.5); Sodium, Blood 140 mmol/L (136-145); Vancomycin, Random 19.1 ug/mL
--- NOTE | 2019-03-07 06:40 | NUR ---
SHIFT SUMMARY RESTS QUIETLY WHEN UNDISTURBED. MONITOR INTACT SHOWING SINUS RHYTHM. HEART RATE 80'S. COOPERATIVE TO CARES. ASSISTS WITH REPOSITIONING. LUNG SOUNDS CLEAR UPPER LOBES DECREASED SOUNDS IN THE BASES OCC EXPIRATORY WHEEZE NOTED. AIRVO IN PLACE AT 40L 37% SPO2 95-98 % ABDOMEN SOFT WITH BOWEL SOUNDS FOUR QUADS. ATTENDS IN PLACE SECONDARY TO INCONTINENCE. DRESSING TO COCCYX DRY INTACT STUMP SOX INTACT DRY INTACT. CONTINUE TO MONITOR AND REPORT CHANGE IN PATIENT CONDITION.
--- NOTE | 2019-03-07 12:31 | NUR ---
TRANSITIONED PATIENT OFF AIR VO TO NC WITH 4 L/MIN, O2 SAT 97%. TOLERATED WELL.
--- NOTE | 2019-03-07 16:22 | NUR ---
PT TRANSFERRED TO MEDICAL FLOOR ROOM [id number] AT 1554 VIA HIS BED. ALL BELONGINGS SENT WITH PT. TELEPHONE REPORT GIVEN TO Gabriela YE RN.
--- NOTE | 2019-03-07 16:28 | NUR ---
PT TO ROOM 1600/ DENIES PAIN AT THIS TIME, PT PLEASANT. CALL LITE IN REACH, BED IN LOW POSITIOIN, CALLS APPROP
--- NOTE | 2019-03-07 17:30 | NUR ---
PT RECEIVED FROM ICU THIS AFT. HAS BEEN PLEASANT TALKATIVE, SON AND SPOUSE IN ROOM AT THIS TIME. DENIES PAIN. NO OTHER CONCERNS AT THIS TIME. BED IN LOW POSITION, CALL LITE IN REACH, CALLS APPROP
--- NOTE | 2019-03-07 18:42 | NUR ---
Routine spiritual care note: Mr. Yañez says he is feeling better and hopes to be discharged soon. His dtr has been present. Family has been regularly at bedside and appear devoted/loving. Pt declined prayer. Telemarketing Sales Representative services will remain available.
--- NOTE | 2019-03-08 03:58 | NUR ---
HAS BEEN RESTING QUIETLY WITH BILATERAL STUMPS ELEVATED ON PILLOWS TO PREVENT ENDS TOUCHING BED. INCONT OF URINE X 1 OF THIS WRITING. O2 PER NC. HOB ELEVATED. DENIED DISCOMFORT. CALL LIGHT IN REACH.
[2019-03-08 05:05] LABS: BASOPHILS ABSOLUTE AUTO 0.06 K/mm3 (0.00-0.23); BASOPHILS PERCENT AUTO 1 % (0-2); EOSINOPHILS ABSOLUTE AUTO 0.29 K/mm3 (0.00-0.68); EOSINOPHILS PERCENT AUTO 4 % (0-6); Hematocrit 27.5 % (37.0-53.0); Hemoglobin 8.3 g/dL (13.5-17.5); IMMATURE GRAN ABSOLUTE AUTO 0.07 K/mm3 (0.00-0.10); IMMATURE GRAN PERCENT AUTO 1 % (0-1); LYMPHOCYTES ABSOLUTE AUTO 1.12 K/mm3 (0.84-5.20); LYMPHOCYTES PERCENT AUTO 16 % (21-46); MONOCYTES ABSOLUTE AUTO 0.51 K/mm3 (0.16-1.47); MONOCYTES PERCENT AUTO 7 % (4-13); Mean Corpuscular HGB 28.5 pg (26.0-34.0); Mean Corpuscular HGB Conc 30.2 g/dL (31.5-36.5); Mean Corpuscular Volume 95 fL (80-100); Mean Platelet Volume 9.2 fL (9.1-12.4); NEUTROPHILS ABSOLUTE AUTO 4.99 K/mm3 (1.96-9.15); NEUTROPHILS PERCENT AUTO 71 % (41-73); Platelet Count 377 K/mm3 (150-400); RDW Coefficient Variation 15.2 % (11.7-14.2); RDW Standard Deviation 52.3 fL (35.1-46.3); Red Blood Cell Count 2.91 M/mm3 (4.30-5.90); White Blood Cell Count 7.04 K/mm3 (4.00-11.30)
[2019-03-08 05:32] LABS: Bun/Creatinine Ratio 14.6 (12.0-20.0); Calcium, Blood 8.6 mg/dL (8.5-10.1); Creatinine, Blood 1.64 mg/dL (0.60-1.20); Potassium, Blood 3.9 mmol/L (3.5-5.5)
--- NOTE | 2019-03-08 18:22 | NUR ---
SUMMARY PT IS A/O X3, COOPERATIVE, AFFECT FLAT/DEPRESSED. HE WAS UP TO CHAIR VIA LIFT TODAY, PARTICIPATED W PT/OT. HE STATE BEDREST DISCOMFORT HOWEVER HAS DECLINED PRN FOR PAIN. O2 WAS @ 3.5L THIS AM, HAVE TITRATED TO 2L, BIOX DROP INTO 80'S IF PLACED ON RA. APPETITE HAS BEEN FAIR. HE CALLS FOR ASSIST W URINAL. HAD BM TODAY. VSS. HE HAS HAD MULT FRIENDS & FAMILY IN TO VISIT, SUPPORTIVE. 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 STUMP SOCK IN PLACE.
[2019-03-09 05:15] LABS: BASOPHILS ABSOLUTE AUTO 0.06 K/mm3 (0.00-0.23); BASOPHILS PERCENT AUTO 1 % (0-2); EOSINOPHILS ABSOLUTE AUTO 0.29 K/mm3 (0.00-0.68); EOSINOPHILS PERCENT AUTO 4 % (0-6); Hematocrit 26.4 % (37.0-53.0); Hemoglobin 8.2 g/dL (13.5-17.5); IMMATURE GRAN ABSOLUTE AUTO 0.09 K/mm3 (0.00-0.10); IMMATURE GRAN PERCENT AUTO 1 % (0-1); LYMPHOCYTES ABSOLUTE AUTO 1.02 K/mm3 (0.84-5.20); LYMPHOCYTES PERCENT AUTO 15 % (21-46); MONOCYTES ABSOLUTE AUTO 0.52 K/mm3 (0.16-1.47); MONOCYTES PERCENT AUTO 8 % (4-13); Mean Corpuscular HGB Conc 31.1 g/dL (31.5-36.5); Mean Corpuscular Volume 93 fL (80-100); Mean Platelet Volume 9.3 fL (9.1-12.4); NEUTROPHILS ABSOLUTE AUTO 4.66 K/mm3 (1.96-9.15); NEUTROPHILS PERCENT AUTO 70 % (41-73); Platelet Count 377 K/mm3 (150-400); RDW Coefficient Variation 15.2 % (11.7-14.2); Red Blood Cell Count 2.83 M/mm3 (4.30-5.90); White Blood Cell Count 6.64 K/mm3 (4.00-11.30)
--- NOTE | 2019-03-09 05:25 | NUR ---
SHIFT SUMMARY PT IS AN 88 Y/O MALE, ADMITTED FOR METABOLIC ENCEPHALOPATHY. HE IS A&O X 3, THOUGH FORGETFUL AT TIMES. PT IS ON BEDREST, WITH BILATERAL BKA. HE REPORTED RESTLESS LEGS, WHICH IS IMPROVED WITH PAIN MEDICATION. NO COMPLAINTS OF ACUTE PAIN, NAUSEA OR SOB. PT IS ON 2L OF O2, STAYING IN THE MID 90S WHILE AWAKE. WHILE ASLEEP, PT TENDS TO DESAT TO 85% WHEN HIS O2 IS REMOVED FROM HIS NOSE. VITAL SIGNS OTHERWISE STABLE. NO OTHER ACUTE CHANGES IN PT CONDITION NOTED. WILL CONTINUE TO MONITOR AND TREAT PER EMAR UNTIL HAND OFF TO DAY SHIFT RN.
[2019-03-09 05:50] LABS: Bun/Creatinine Ratio 19.3 (12.0-20.0); Calcium, Blood 8.4 mg/dL (8.5-10.1); Creatinine, Blood 1.4 mg/dL (0.60-1.20); Magnesium, Blood 2.4 mg/dL (1.6-2.4); Potassium, Blood 4.1 mmol/L (3.5-5.5)
[2019-03-09] MEDS ORDERED: Amoxicillin500 MG PO (09:13)
[2019-03-09] MEDS ORDERED: Norco 5-325 Ta1 EACH PO (09:13)
[2019-03-09] MEDS ORDERED: ROPI.25 PO (09:18)
--- NOTE | 2019-03-09 10:20 | NUR ---
pt states minimal discomfort does not need medications. Theraputic time with patient positioned for comfort so he can nap in chair. anxious to go back to [facility].
--- NOTE | 2019-03-09 13:24 | NUR ---
DISCHARGE SUMMARY JASPREET DENIES PAIN THIS SHIFT. DR LARA CHANGED HIS LEG DRESSINGS THIS MORNING AROUND 0730. COCCYX DRESSING CHANGED. LARGE SOFT BROWN BM THIS SHIFT, INCONTINENT URINE AND STOOL. REPORT CALLED TO AUNDREA AT [facility]. PIV REMOVED. PT GOT BLOODY NOSE THIS MORNING, IT HAS RESOLVED. VERY LOW APPETITE, FALLS ASLEEP OFTEN. GOT UP TO CHAIR WITH LIFT. TRANPOSRT WILL ARRIVE SHORTLY TO TAKE TO [facility]
== END 2019-03-09 15:05 | DRG 853 ==
LOC: ER 15:42 → MEDS 18:16 → ICUE 18:16 → MEDS 20:12 → ICUE 02-27 18:20 → SURS 02-28 15:40 → PCU 03-01 21:37 → ICUE 03-02 15:11 → MEDS 03-07 15:56
PROVIDERS: Emergency Medicine; Hospitalist; Internal Medicine; Internal Medicine Pulmonary Disease; Nurse Practitioner Acute Care; Orthopaedic Surgery; ADMIT Hospitalist
PROC: 0Y6J0Z1 Detachment at Left Lower Leg, High, Open Approach (ICD-10-PCS; 2019-02-27)
PROC: 0Y6H0Z1 Detachment at Right Lower Leg, High, Open Approach (ICD-10-PCS; 2019-02-27)
PROC: 5A09357 Assistance with Respiratory Ventilation, Less than 24 Consecutive Hours, Continuous Positive Airway Pressure (ICD-10-PCS; principal; 2019-03-01)
PROC: 02HV33Z Insertion of Infusion Device into Superior Vena Cava, Percutaneous Approach (ICD-10-PCS; 2019-03-02)
PROC: 3E043XZ Introduction of Vasopressor into Central Vein, Percutaneous Approach (ICD-10-PCS; 2019-03-02)
DX: A41.9 Sepsis, unspecified organism (principal); J96.01 Acute respiratory failure with hypoxia; G92 Toxic encephalopathy; J69.0 Pneumonitis due to inhalation of food and vomit; I50.21 Acute systolic (congestive) heart failure; R65.21 Severe sepsis with septic shock; I21.A1 Myocardial infarction type 2; N39.0 Urinary tract infection, site not specified; M86.672 Other chronic osteomyelitis, left ankle and foot; E87.1 Hypo-osmolality and hyponatremia; N17.9 Acute kidney failure, unspecified; E11.52 Type 2 diabetes mellitus with diabetic peripheral angiopathy with gangrene; L97.426 Non-pressure chronic ulcer of left heel and midfoot with bone involvement without evidence of necrosis; L97.425 Non-pressure chronic ulcer of left heel and midfoot with muscle involvement without evidence of necrosis; I97.131 Postprocedural heart failure following other surgery; I95.9 Hypotension, unspecified; D63.1 Anemia in chronic kidney disease; Z87.891 Personal history of nicotine dependence; N18.3 Chronic kidney disease, stage 3 (moderate); E11.22 Type 2 diabetes mellitus with diabetic chronic kidney disease; H35.30 Unspecified macular degeneration; E11.621 Type 2 diabetes mellitus with foot ulcer; Z79.4 Long term (current) use of insulin
CPT/HCPCS: 0099U; 36415; 36430; 36556; 36600; 51702; 71045; 71046; 73552; 73590; 73650; 80048; 80053; 80202; 81001; 82272; 82803; 82947; 83605; 83735; 83880; 84100; 84484; 85014; 85018; 85025; 85610; 85730; 86850; 86900; 86901; 86923; 87040; 87070; 87077; 87086; 87186; 87205; 88307; 88311; 93005; 93010; 93306; 94640; 94660; 94667; 94668; 94760; 94762; 96365-59; 96366-59; 96367-59; 96375-59; 97110; 97140; 97162; 97166; 97530; 97535; 99285-25; A9270; A9270-GY; C1751; C9113; J0696; J1265; J1644; J1650; J1940; J1956; J2310; J2370; J2405; J2543; J2704; J2765; J3010; J3370; J7030; J7040; J7050; J7060; P9016

== ENCOUNTER → 2019-05-25 | Outpatient (CLI) | payer MEDICARE, BC ==
[~2019-05-25] MED LIST changes: +Amoxicillin500 MG PO; +Culturelle1 CAP PO; +Diflucan100 MG PO; +Humalog100 UNIT/1 SC; +INSULANPEN SC; +NITR100CA PO; +Norco 5-325 Ta1 EACH PO; +OMEPRAZOLE20 MG PO; +Pedi-Dri 100,0060 GM TOP; +ROPI.25 PO
[2019-05-25 10:39] LABS: Albumin, Blood 3.5 g/dL (3.4-5.0); Anion Gap 7 mmol/L (6-16); Blood Urea Nitrogen 59 mg/dL (8-24); CO2, Blood 25 mmol/L (21-32); Calcium, Blood 8.8 mg/dL (8.5-10.1); Chloride, Blood 103 mmol/L (98-108); Creatinine, Blood 2.46 mg/dL (0.60-1.20); Glomerular Filtration Rate 27 (60-); Glucose, Blood 166 mg/dL (70-99); Phosphorus, Blood 4.7 mg/dL (2.5-4.9); Potassium, Blood 4.7 mmol/L (3.5-5.5); Sodium, Blood 135 mmol/L (136-145)
== END | disposition home or self-care (01) ==
LOC: LAB RH 08:18 → EDSTATUS 12:35
PROVIDERS: Family Medicine
DX: N18.3 Chronic kidney disease, stage 3 (moderate) (principal)
CPT/HCPCS: 80069

== ENCOUNTER → 2019-07-19 | Outpatient (CLI) | payer MEDICARE, BC ==
[2019-07-20 00:21] LABS: Source, Urine Clean Catch
[2019-07-20 00:24] LABS: Bilirubin, Urine Neg (Neg); Blood, Urine 1+ (Neg); Glucose Qualitative, Urine 3+ (Neg); Ketones, Urine Neg (Neg); Leukocyte Esterase, Urine 3+ (Neg); Nitrite, Urine Neg (Neg); Protein, Urine Neg (Neg); Specific Gravity, Urine 1.015 (1.003-1.022); Urobilinogen, Urine NORM (Normal)
[2019-07-20 00:26] LABS: Appearance, Urine Clear (Clear); Color, Urine Yellow (P-Yellow)
[2019-07-20 00:36] LABS: Bacteria Few /hpf; Red Blood Cells, Urine 0-2 /hpf (0-2); Squamous Epithelial Cells Not Seen /hpf (Few); White Blood Cells, Urine 25-50 /hpf (0-5)
== END | disposition home or self-care (01) ==
LOC: EDSTATUS 10:50 → LAB RH 21:02
PROVIDERS: Family Medicine
DX: R39.9 Unspecified symptoms and signs involving the genitourinary system (principal)
CPT/HCPCS: 81001; 87077; 87086; 87186

== ENCOUNTER → 2019-10-08 | Outpatient (CLI) | payer MEDICARE, BC ==
[2019-10-08 10:42] LABS: BASOPHILS PERCENT AUTO 1 % (0-2); EOSINOPHILS ABSOLUTE AUTO 0.48 K/mm3 (0.00-0.68); EOSINOPHILS PERCENT AUTO 6 % (0-6); Hematocrit 41.1 % (37.0-53.0); Hemoglobin 13.8 g/dL (13.5-17.5); IMMATURE GRAN ABSOLUTE AUTO 0.07 K/mm3 (0.00-0.10); IMMATURE GRAN PERCENT AUTO 1 % (0-1); LYMPHOCYTES ABSOLUTE AUTO 1.03 K/mm3 (0.84-5.20); LYMPHOCYTES PERCENT AUTO 13 % (21-46); MONOCYTES ABSOLUTE AUTO 0.92 K/mm3 (0.16-1.47); MONOCYTES PERCENT AUTO 11 % (4-13); Mean Corpuscular HGB 29.8 pg (26.0-34.0); Mean Corpuscular HGB Conc 33.6 g/dL (31.5-36.5); Mean Corpuscular Volume 89 fL (80-100); Mean Platelet Volume 10.1 fL (9.1-12.4); NEUTROPHILS ABSOLUTE AUTO 5.54 K/mm3 (1.96-9.15); NEUTROPHILS PERCENT AUTO 68 % (41-73); Platelet Count 266 K/mm3 (150-400); RDW Coefficient Variation 13.6 % (11.7-14.2); Red Blood Cell Count 4.63 M/mm3 (4.30-5.90); White Blood Cell Count 8.14 K/mm3 (4.00-11.30)
[2019-10-08 10:58] LABS: Very Low Density Lipoprot Chol 71 mg/dL (6-32)
[2019-10-08 10:59] LABS: Alanine Aminotransfer (ALT/SGP 18 U/L (12-78); Albumin, Blood 3.2 g/dL (3.4-5.0); Albumin/Globulin Ratio 0.7 (0.8-1.8); Alk Phos 102 U/L (50-136); Anion Gap 8 mmol/L (6-16); Aspartate Aminotrans (AST/SGOT 12 U/L (12-37); Bilirubin, Total 0.3 mg/dL (0.1-1.0); Blood Urea Nitrogen 38 mg/dL (8-24); Bun/Creatinine Ratio 20.4 (12.0-20.0); CHOL/HDL RATIO 5.9; CO2, Blood 27 mmol/L (21-32); Calcium, Blood 9.1 mg/dL (8.5-10.1); Chloride, Blood 100 mmol/L (98-108); Cholesterol 170 mg/dL (50-200); Creatinine, Blood 1.86 mg/dL (0.60-1.20); Globulin, Blood 4.7 g/dL (2.2-4.0); Glomerular Filtration Rate 37 (60-); Glucose, Blood 272 mg/dL (70-99); HDL Cholesterol 29 mg/dL (>39); LDL/HDL RATIO 2.4; Low Density Lipoprotein Chol 70 mg/dL (0-110); Potassium, Blood 4.1 mmol/L (3.5-5.5); Sodium, Blood 135 mmol/L (136-145); Total Protein, Blood 7.9 g/dL (6.4-8.2); Triglycerides 357 mg/dL (30-160)
== END | disposition home or self-care (01) ==
LOC: LAB RH 09:09 → EDSTATUS 15:23
PROVIDERS: Family Medicine
DX: E11.9 Type 2 diabetes mellitus without complications (principal); I10 Essential (primary) hypertension; E78.49 Other hyperlipidemia; M10.9 Gout, unspecified
CPT/HCPCS: 80053; 80061; 83036; 84550; 85025

== ENCOUNTER → 2019-11-09 | Outpatient (CLI) | payer MEDICARE, BC ==
[2019-11-09 07:53] LABS: Source, Urine Catheter
[2019-11-09 09:58] LABS: Bilirubin, Urine Neg (Neg); Blood, Urine 1+ (Neg); Glucose Qualitative, Urine 2+ (Neg); Ketones, Urine Neg (Neg); Leukocyte Esterase, Urine 3+ (Neg); Nitrite, Urine Neg (Neg); Protein, Urine Neg (Neg); Urobilinogen, Urine NORM (Normal); pH, Urine 6.5 (5.0-8.0)
[2019-11-09 10:28] LABS: Appearance, Urine Clear (Clear); Color, Urine Yellow (P-Yellow)
[2019-11-09 10:34] LABS: Squamous Epithelial Cells Rare /hpf (Few)
[2019-11-09 10:35] LABS: Bacteria Few /hpf
== END | disposition home or self-care (01) ==
LOC: LAB RH 07:51 → EDSTATUS 10:51
PROVIDERS: Family Medicine
DX: N39.0 Urinary tract infection, site not specified (principal)
CPT/HCPCS: 81001; 87077; 87086; 87186

== ENCOUNTER → 2019-12-10 | Outpatient (CLI) | payer MEDICARE, BC ==
[2019-12-10 15:50] LABS: Appearance, Urine Turbid (Clear); Bilirubin, Urine Neg (Neg); Blood, Urine 5+ (Neg); Color, Urine Yellow (P-Yellow); Glucose Qualitative, Urine 4+ (Neg); Ketones, Urine Neg (Neg); Leukocyte Esterase, Urine 3+ (Neg); Nitrite, Urine Pos (Neg); Protein, Urine 3+ (Neg); Specific Gravity, Urine 1.015 (1.003-1.022); Urobilinogen, Urine NORM (Normal)
[2019-12-10 16:06] LABS: Bacteria Many /hpf; Red Blood Cells, Urine 0-2 /hpf (0-2); Renal Epithelial Few /hpf (0-Rare); Squamous Epithelial Cells Not Seen /hpf (Few); White Blood Cells, Urine TNTC /hpf (0-5)
== END | disposition home or self-care (01) ==
LOC: EDSTATUS 14:02 → LAB RH 14:20
PROVIDERS: Family Medicine
DX: N39.0 Urinary tract infection, site not specified (principal)
CPT/HCPCS: 81001; 87077; 87086; 87186

== ENCOUNTER → 2019-12-12 | Outpatient (CLI) | payer MEDICARE, BC ==
[2019-12-12 10:59] LABS: Bun/Creatinine Ratio 22.5 (12.0-20.0); Calcium, Blood 9.6 mg/dL (8.5-10.1); Creatinine, Blood 2.09 mg/dL (0.60-1.20); Potassium, Blood 4.6 mmol/L (3.5-5.5)
== END | disposition home or self-care (01) ==
LOC: LAB RH 09:58 → EDSTATUS 14:03
PROVIDERS: Family Medicine
DX: E11.40 Type 2 diabetes mellitus with diabetic neuropathy, unspecified (principal)
CPT/HCPCS: 80048

== ENCOUNTER → 2019-12-19 | Outpatient (CLI) | payer MEDICARE, BC ==
[2019-12-19 10:18] LABS: Calcium, Blood 9.4 mg/dL (8.5-10.1); Creatinine, Blood 1.86 mg/dL (0.60-1.20); Potassium, Blood 4.6 mmol/L (3.5-5.5)
== END | disposition home or self-care (01) ==
LOC: LAB RH 09:00 → EDSTATUS 12:34
PROVIDERS: Family Medicine
DX: E11.22 Type 2 diabetes mellitus with diabetic chronic kidney disease (principal); N18.30 Chronic kidney disease, stage 3 unspecified
CPT/HCPCS: 80048

== ENCOUNTER 2020-02-06 13:58 | Inpatient (IN) | payer MEDICARE, BC ==
[~2020-02-06] VITALS: Ht 152.4 cm; Wt 96.1 kg
[~2020-02-06 13:58] MED LIST changes: +BASAGLAR K100 UNIT/1 SC; -INSULANPEN SC
[2020-02-06 14:26] LABS: Hematocrit 35.7 % (37.0-53.0); Hemoglobin 11.5 g/dL (13.5-17.5); Mean Corpuscular HGB 29.6 pg (26.0-34.0); Mean Corpuscular HGB Conc 32.2 g/dL (31.5-36.5); Mean Corpuscular Volume 92 fL (80-100); Mean Platelet Volume 10.1 fL (9.1-12.4); Platelet Count 197 K/mm3 (150-400); RDW Coefficient Variation 14.6 % (11.7-14.2); RDW Standard Deviation 48.6 fL (35.1-46.3); Red Blood Cell Count 3.88 M/mm3 (4.30-5.90); White Blood Cell Count 42.83 K/mm3 (4.00-11.30)
[2020-02-06 14:48] LABS: Albumin, Blood 2.9 g/dL (3.4-5.0); Albumin/Globulin Ratio 0.7 (0.8-1.8); Bilirubin, Total 0.5 mg/dL (0.1-1.0); Bun/Creatinine Ratio 18.9 (12.0-20.0); Calcium, Blood 8.7 mg/dL (8.5-10.1); Creatinine, Blood 2.65 mg/dL (0.60-1.20); Globulin, Blood 3.9 g/dL (2.2-4.0); Potassium, Blood 4.9 mmol/L (3.5-5.5); Total Protein, Blood 6.8 g/dL (6.4-8.2)
[2020-02-06 14:51] LABS: BAND PERCENT MAN 12 % (0-8); BASOPHILS PERCENT MAN 0 % (0-2); EOSINOPHILS PERCENT MAN 0 % (0-6); MONOCYTES ABSOLUTE MAN 1.28 K/mm3 (0.16-1.47); MONOCYTES PERCENT MAN 3 % (4-13); NEUTROPHILS ABSOLUTE MAN 41.54 K/mm3 (1.96-9.15); SEG NEUTROPHILS PERCENT MAN 85 % (41-73); TOTAL CELLS COUNTED 100
[2020-02-06] MEDS ORDERED: ROPINIROLE HCL0.5 MG PO (15:12)
[2020-02-06] MEDS ORDERED: TAMSULOSIN HCL0.4 M1 PO (15:14)
[2020-02-06 17:07] LABS: SARS-Cov-2 (COVID-19) PCR, MMC Negative (NEGATIVE)
[2020-02-06 17:08] LABS: Influenza A, PCR Negative (NEGATIVE); Influenza B, PCR Negative (NEGATIVE); Resp Syncytial Virus, PCR Negative (NEGATIVE)
--- NOTE | 2020-02-06 18:10 | NUR ---
ADMIT PT ARRIVED TO ICU 10 VIA ER BED AT 1715. PT ARRIVES RESTING QUIETLY, BUT AROUSES EASILY TO VERBAL STIMULI. PT IS ALERT, ORIENTED, AND ANSWERS QUESTIONS APPROPRIATELY. PT IS LETHARGIC AND QUICKLY FALLS BACK TO SLEEP AFTER ANSWERING QUESTIONS. PT DENIES PAIN OR SOB. NS INFUSING AT 100 ML/HR. VITAL SIGNS STABLE, PT ON 2L O2 NC. SBP 90-110'S. PT WITH ATTENDS IN PLACE. BILATE BKA'S NOTED. SKIN IS C/D/I. WILL CONTINUE TO MONITOR AND REPORT OFF TO ONCOMING RN.
--- NOTE | 2020-02-06 20:00 | NUR ---
ASSUMED CARE: PT A&O. WILL ANSWER QUESTIONS. KNOW WHERE AND WHO HE IS. IS MILDLY OBTUNDED. VSS. SBP HAD BEEN SOFT. IN SR. ON 2LNC. SPO2 >90%. ABD IS DISTENDED. HE HAS AN ATTENDS IN PLACE. PER REPORT PT HASN'T MADE ANY URINE. ATTEMPTS TO USE URINAL. WHITE COUNT AND BNP ELEVATED. LACTIC ELEVATED BUT COMING DOWN. 2 PIV-R HAND AND LAC. WILL CONTINUE TO MONITOR
--- NOTE | 2020-02-06 20:15 | NUR ---
PT SBP OCCASIONALLY SOFT. 80-100S. PT WILL WAKE UP AND ANSWER SOME QUESTIONS BUT IS SOMEWHAT OBTUNDED. CALL PLACED TO DR MEJIA FOR PRESSERS. ORDER RECEIVED FOR LEVOPHED AND CRITICAL CARE CONSULT. OK TO INFUSE THROUGH PERIPHERAL UP TO 8MCG. CRITICAL CARE CONSULT PLACED WITH DR CHARLES. PER DR CHARLES NO CENTRAL LINE NEEDED DUE TO PTS DNR/DNI STATUS. CONTINUE WITH CURRENT TX UNLESS PT CHANGES DNR/DNI STATUS.
--- NOTE | 2020-02-06 21:36 | NUR ---
PT INCREASINGLY OBTUNDED. UNABLE TO ROUSE WITH STERNAL RUB. CALL PLACED TO DR MEJIA. ORDERS RECEIVED FOR NARCAN AND ABG. RT IN ROOM
[2020-02-06 21:42] LABS: PO2 Arterial 95.3 mmHg (80-100)
[2020-02-06 21:43] LABS: pH Blood Arterial 7.28 (7.35-7.45)
--- NOTE | 2020-02-06 21:55 | NUR ---
UP TO 10MCG ON LEVOPHED THROUGH PIV. CALL PLACED TO DR MEJIA TO INFORM. AWAITING CALL BACK
--- NOTE | 2020-02-07 01:54 | NUR ---
LEVOPHED INFUSING. PIV SITE PATENT AND DRAWING BLOOD WELL
[2020-02-07 03:26] LABS: Hemoglobin 10.1 g/dL (13.5-17.5); Mean Corpuscular HGB 29.4 pg (26.0-34.0); Mean Corpuscular HGB Conc 31.6 g/dL (31.5-36.5); Mean Corpuscular Volume 93 fL (80-100); Platelet Count 178 K/mm3 (150-400); RDW Coefficient Variation 14.9 % (11.7-14.2); RDW Standard Deviation 51.1 fL (35.1-46.3); Red Blood Cell Count 3.44 M/mm3 (4.30-5.90)
[2020-02-07 03:45] LABS: Albumin, Blood 2.5 g/dL (3.4-5.0); Albumin/Globulin Ratio 0.7 (0.8-1.8); Bilirubin, Total 0.5 mg/dL (0.1-1.0); Bun/Creatinine Ratio 20.9 (12.0-20.0); Calcium, Blood 7.6 mg/dL (8.5-10.1); Creatinine, Blood 2.15 mg/dL (0.60-1.20); Globulin, Blood 3.8 g/dL (2.2-4.0); Magnesium, Blood 2.2 mg/dL (1.6-2.4); Phosphorus, Blood 2.8 mg/dL (2.5-4.9); Total Protein, Blood 6.3 g/dL (6.4-8.2)
[2020-02-07 03:55] LABS: BAND PERCENT MAN 19 % (0-8); BASOPHILS PERCENT MAN 0 % (0-2); EOSINOPHILS PERCENT MAN 0 % (0-6); LYMPHOCYTES ABSOLUTE MAN 0.26 K/mm3 (0.84-5.20); LYMPHOCYTES PERCENT MAN 1 % (21-46); MONOCYTES ABSOLUTE MAN 0.52 K/mm3 (0.16-1.47); MONOCYTES PERCENT MAN 2 % (4-13); SEG NEUTROPHILS PERCENT MAN 78 % (41-73); TOTAL CELLS COUNTED 100
--- NOTE | 2020-02-07 06:15 | NUR ---
CALL PLACED TO DR PALOMINO RE LAB RESULTS. GRAM - BACILLI IN BLOOD CULTURE. AWAITING CALL BACK
--- NOTE | 2020-02-07 06:44 | NUR ---
PT SLEPT MAJORITY OF NIGHT. WILL RESPOND TO VERBAL STIMULI. BIPAP REMAINED ON ALL NIGHT. SETTTINGS ARE 18/14, 3L BLEED IN. SPO2 >90%. VSS. LEVOPHED ON STANDBY. NS AT 100MLS/HR. PT PULLED LAC IV OUT. NEW RAC IV PLACED. PATENT AND INFUSING WELL. WILL PASS REPORT TO ONCOMING SHIFT
[2020-02-07 08:56] LABS: Base Excess Venous -3.7 mmol/L; Bicarbonate Venous 21.4 mmol/L (24.0-30.0); PCO2 Venous 43.8 mmHg (38-42); PO2 Venous 109 mmHg (38-42); pH Blood Venous 7.31 (7.34-7.37)
--- NOTE | 2020-02-07 11:00 | NUR ---
PT WAKES EASILY TO VOICE. HE IS A/O X3, NEEDED SOME REMINDING ON WHY HE IS IN THE HOSPITAL. FOLLOWS COMMANDS AND ASKS APPROPRIATE QUESTIONS. WAS ABLE TO USE URINAL WITH SOME ASSISTANCE BUT DOES NOT CALL FOR ASSISTANCE. PLACED CONDOM CATH TO TRY TO GET ACCURATE I&O. LEVOPHED HAS BEEN OFF SINCE PEDIGREE RESEARCHER. HAS BEEN OFF BIPAP SINCE EARLY THIS AM AND DOING WELL ON 2L O2. DID WELL EATING BREAKFAST WITHOUT DIFFICULTY. NO SIGN OF DISTRESS. BOTH DR. FELIX AND DR. DIAZ ARE OK WITH DOWN GRADING STATUS THIS AFTERNOON IF PT REMAINS STABLE.
[2020-02-07] MEDS ORDERED: ACET325 PO (12:38)
[2020-02-07] MEDS ORDERED: ADULT GLYCERIN1 EACH PR (12:41)
[2020-02-07] MEDS ORDERED: ALMACONE SUSPE355 ML PO (12:43)
[2020-02-07] MEDS ORDERED: DULCOLAX400 MG/5 M PO (12:43)
[2020-02-07] MEDS ORDERED: VIT1CAPS12 PO (12:44)
--- NOTE | 2020-02-07 17:23 | NUR ---
SUMMARY PT HAS BEEN A/O X4 TODAY. BP HAS BEEN STABLE. DOESN'T USE CALL LIGHT WELL BUT WILL MAKE NEEDS KNOWN WHEN ROUNDING. CONDOM CATH IN PLACE TO KEEP SKIN DRY AND INTACT. PT STATES HE KNOWS WHEN HE HAS TO URINATE BUT CAN'T ACUTALLY FEEL HIMSELF URINATING. ON 2L O2. SON CAME IN TO VISIT TODAY AND DAUGHTER ZUNILDA WAS UPDATED VIA PHONE. NO SIGN OF DISTRESS. PT IS BEING TRANSFERED TO MEDICAL FLOOR 325, REPORT GIVEN TO TAMELA VEGA.
--- NOTE | 2020-02-07 19:22 | NUR ---
SHIFT SUMMARY PT TRANSFERRED TO UNIT AT APPROXIMATELY 1730. PT IS AO WITH SOME FORGETFULNESS. PT IS ON 2 L O2 NC. PT C/O PAIN. PT DENIES SOB, N/V. PT HAS POOR APPETITE THIS RAZ. TELE PLACED AND PT RUNNING SINUS RHYTHM. PT HAD VISITOR IN ICU. PT IS IN BED, CALL LIGHT IN REACH, ALARM ON.
[2020-02-07 21:30] LABS: Vancomycin, Random 13.7 ug/mL
[2020-02-08 04:33] LABS: BASOPHILS ABSOLUTE AUTO 0.02 K/mm3 (0.00-0.23); BASOPHILS PERCENT AUTO 0 % (0-2); EOSINOPHILS ABSOLUTE AUTO 0.06 K/mm3 (0.00-0.68); EOSINOPHILS PERCENT AUTO 1 % (0-6); Hematocrit 31.5 % (37.0-53.0); Hemoglobin 10.1 g/dL (13.5-17.5); IMMATURE GRAN ABSOLUTE AUTO 0.07 K/mm3 (0.00-0.10); IMMATURE GRAN PERCENT AUTO 1 % (0-1); LYMPHOCYTES ABSOLUTE AUTO 0.78 K/mm3 (0.84-5.20); LYMPHOCYTES PERCENT AUTO 6 % (21-46); MONOCYTES ABSOLUTE AUTO 0.78 K/mm3 (0.16-1.47); MONOCYTES PERCENT AUTO 6 % (4-13); Mean Corpuscular HGB 29.3 pg (26.0-34.0); Mean Corpuscular HGB Conc 32.1 g/dL (31.5-36.5); Mean Corpuscular Volume 91 fL (80-100); Mean Platelet Volume 10.4 fL (9.1-12.4); NEUTROPHILS ABSOLUTE AUTO 11.24 K/mm3 (1.96-9.15); NEUTROPHILS PERCENT AUTO 87 % (41-73); Platelet Count 168 K/mm3 (150-400); RDW Coefficient Variation 14.6 % (11.7-14.2); RDW Standard Deviation 49.2 fL (35.1-46.3); Red Blood Cell Count 3.45 M/mm3 (4.30-5.90); White Blood Cell Count 12.95 K/mm3 (4.00-11.30)
[2020-02-08 04:52] LABS: Bun/Creatinine Ratio 21.8 (12.0-20.0); Calcium, Blood 8.6 mg/dL (8.5-10.1); Creatinine, Blood 2.06 mg/dL (0.60-1.20); Potassium, Blood 3.8 mmol/L (3.5-5.5)
--- NOTE | 2020-02-08 05:46 | NUR ---
PT STATED THAT HE WOULD LIKE HIS CODE STATUS CHANGED FROM DNR TO FULL CODE. WILL INFORM DAY SHIFT TO DISCUSS W/MD.
--- NOTE | 2020-02-08 07:35 | NUR ---
SHIFT SUMMARY: SBP 100 AND 108 OVERNIGHT. TEMP HIGH 99.8. PT REPORTS M[place]A 5/10, TYL GIVEN X2, PT STATES MONT[place]A RESOLVED THIS AM. REPORTS SLEEPING MINIMALLY. WORE CPAP FOR ABOUT 7 HRS OF THE NIGHT. 02 SATS HAVE REMAINED ABOVE 92%. STATES NASAL CONGESTION THIS AM. LSCTA W/DIM BASES. TELE NSR 90. PO FLUIDS ENCOURAGED. WILL CONT TO MONITOR.
--- NOTE | 2020-02-08 19:04 | NUR ---
PT RESTING IN BED AFTER DINNER AND HAS BEEN TURNED Q2 HOURS HE HAS A RED AREA ON COXYS, MEP PLACES AT BEGINNING OF SHIFT FOR XTRA CUSHION. PT C/O BURNING SENSATION WHEN URINATING AND URIN CULTURE ORDERED. PT MAKES NO C/O PAIN AT THIS TIME, IV WNL, STAFF WILL CONT. TO MONITOR.
[2020-02-09 01:45] LABS: Source, Urine Voided
[2020-02-09 01:50] LABS: Bilirubin, Urine Neg (Neg); Blood, Urine 4+ (Neg); Glucose Qualitative, Urine Neg (Neg); Ketones, Urine Neg (Neg); Leukocyte Esterase, Urine 1+ (Neg); Nitrite, Urine Neg (Neg); Protein, Urine 1+ (Neg); Urobilinogen, Urine NORM (Normal)
[2020-02-09 01:51] LABS: Appearance, Urine Clear (Clear); Color, Urine Yellow (P-Yellow)
[2020-02-09 01:56] LABS: Bacteria Few /hpf; Squamous Epithelial Cells Not Seen /hpf (Few)
[2020-02-09 04:33] LABS: Hematocrit 32.1 % (37.0-53.0); Hemoglobin 10.5 g/dL (13.5-17.5); Mean Corpuscular HGB 29.3 pg (26.0-34.0); Mean Corpuscular HGB Conc 32.7 g/dL (31.5-36.5); Mean Corpuscular Volume 90 fL (80-100); Mean Platelet Volume 10.3 fL (9.1-12.4); Platelet Count 169 K/mm3 (150-400); RDW Coefficient Variation 14.3 % (11.7-14.2); RDW Standard Deviation 46.8 fL (35.1-46.3); Red Blood Cell Count 3.58 M/mm3 (4.30-5.90); White Blood Cell Count 12.24 K/mm3 (4.00-11.30)
[2020-02-09 04:51] LABS: Calcium, Blood 8.9 mg/dL (8.5-10.1); Creatinine, Blood 1.81 mg/dL (0.60-1.20); Potassium, Blood 4.2 mmol/L (3.5-5.5)
--- NOTE | 2020-02-09 05:56 | NUR ---
SUMMARY UNEVENTFUL NIGHT. PT NO LONGER USING CONDOM CATH. VOIDING PER URINAL WITH ASSIST. U/A SENT PER ORDERS AND IS PENDING A CX.
--- NOTE | 2020-02-09 18:03 | NUR ---
PT RESTING IN BED AFTER DINNER AND MEDICATION ADMIN. PT MAKES NO C/O PAIN AT THIS TIME. ALERT AND ORIENTED AND BEDBOUND. NEW MEP PLACED THIS SHIFT FOR MILD ÁNGEL AREA ON COXYS. STAFF WILL CONT. TO MONITOR FOR CHANGES.
[2020-02-10 04:58] LABS: Hematocrit 34.3 % (37.0-53.0); Hemoglobin 10.9 g/dL (13.5-17.5); Mean Corpuscular HGB 28.3 pg (26.0-34.0); Mean Corpuscular HGB Conc 31.8 g/dL (31.5-36.5); Mean Corpuscular Volume 89 fL (80-100); Mean Platelet Volume 10.1 fL (9.1-12.4); Platelet Count 195 K/mm3 (150-400); RDW Standard Deviation 45.5 fL (35.1-46.3); Red Blood Cell Count 3.85 M/mm3 (4.30-5.90); White Blood Cell Count 8.49 K/mm3 (4.00-11.30)
[2020-02-10 05:15] LABS: Bun/Creatinine Ratio 18.8 (12.0-20.0); Calcium, Blood 9.1 mg/dL (8.5-10.1); Creatinine, Blood 1.65 mg/dL (0.60-1.20)
--- NOTE | 2020-02-10 07:18 | NUR ---
02/10/20 0600 PT SLEPT WELL LAST NIGHT. CONT. PULSE OXIMETER ON LAST NIGHT WITH OCC. O2 SATS DROPS IN HIGH 80'S BUT THEN RETURNS TO >92%. PT ON O2 AT 2LPM VIA N/C. RESP CARE SPOKE WITH PT ABOUT CPAP IF HE GETS SOB OR SUSTAINED LOW O2 SATS. PT STATES HE UNDERSTOOD. HEART MONITOR STABLE AT SR IN THE 70'S.
--- NOTE | 2020-02-10 18:19 | NUR ---
PT RESTING IN BED AFTER DINNER AND MED VASQUEZ., ALERT AND ORIENTED, LINE SL AND WNL, MAKES NO C/O PAIN OR SOB. PT AMBULATED VIA WEELCHAIR WITHOUT 2L AND OR REMAINED IN THE MID 90'S. STAFF WILL CONT. TO MONITOR.
--- NOTE | 2020-02-11 07:38 | NUR ---
02/11/20 0600 VITALS STABLE. SLEPT WELL. O2 WAS REAPLIED LAST NIGHT PULSE KEPT ALARMING WHEN O2 SATS DROPPED IN LOW TO MID-80'S. HEART MONITOR STABLE. UNEVENTFUL NIGHT.
[2020-02-11] MEDS ORDERED: CEFTRIAXON1 GM/50 M1 IV (11:30)
[2020-02-11] MEDS ORDERED: ABAT250V (11:32)
[2020-02-11] MEDS ORDERED: PROBIOTIC PO (11:32)
[2020-02-11 11:43] LABS: Influenza A, PCR Negative (NEGATIVE); Influenza B, PCR Negative (NEGATIVE); Resp Syncytial Virus, PCR Negative (NEGATIVE); SARS-Cov-2 (COVID-19) PCR, MMC Negative (NEGATIVE)
--- NOTE | 2020-02-11 14:23 | NUR ---
DISCHARGE SUMMARY PT DISCHARGING HOME TO [facility] TODAY. PT AxOx4. PLEASANT AND COOPERATIVE WITH CARE. RAPID COVID WAS NEG, AND AM VITALS WNL. THIS RN PLACED NEW IV PRIOR TO DC PT WILL BE RECEIVING IV ABX POST DC. REPORTS CALLED TO [facility] ROMAN AT APPROX 1311. VITALS REVIEWED AND PT BELONGINGS GATHERED. ZNUILDA, DAUGHTER, NOTIFIED OF DC. [facility] HERE FOR TRANSPORT. DC PACKET GIVEN TO TRANSPORTER. PT SAFELY TRANSFERRED TO WHEELCHAIR AND ESCORTED OUT WITH TRANSPORTER.
== END 2020-02-11 14:24 | DRG 871 ==
LOC: ER 13:58 → ICUW 15:43 → MEDS 02-07 17:47 → ENPENDDIS 02-11 10:59 → MEDS 02-11 14:24
PROVIDERS: Emergency Medicine; Internal Medicine; Internal Medicine Critical Care Medicine; Nurse Practitioner Acute Care; Pharmacist; ADMIT Internal Medicine
DX: A41.89 Other specified sepsis (principal); R65.21 Severe sepsis with septic shock; J18.9 Pneumonia, unspecified organism; N39.0 Urinary tract infection, site not specified; N17.9 Acute kidney failure, unspecified; Z20.828 Contact with and (suspected) exposure to other viral communicable diseases; E11.51 Type 2 diabetes mellitus with diabetic peripheral angiopathy without gangrene; E11.22 Type 2 diabetes mellitus with diabetic chronic kidney disease; N18.30 Chronic kidney disease, stage 3 unspecified; I12.9 Hypertensive chronic kidney disease with stage 1 through stage 4 chronic kidney disease, or unspecified chronic kidney disease; Z66 Do not resuscitate; I95.9 Hypotension, unspecified; N40.0 Benign prostatic hyperplasia without lower urinary tract symptoms; E78.5 Hyperlipidemia, unspecified; K21.9 Gastro-esophageal reflux disease without esophagitis; B96.4 Proteus (mirabilis) (morganii) as the cause of diseases classified elsewhere; E11.40 Type 2 diabetes mellitus with diabetic neuropathy, unspecified; Z89.512 Acquired absence of left leg below knee; Z89.511 Acquired absence of right leg below knee; Z79.82 Long term (current) use of aspirin; Z79.4 Long term (current) use of insulin; Z79.899 Other long term (current) drug therapy; Z87.891 Personal history of nicotine dependence
CPT/HCPCS: 0241U; 36415; 36600; 71045; 74176; 76705; 80048; 80053; 80202; 81001; 82550; 82803; 82947; 83605; 83735; 83880; 84100; 84145; 85025; 85027; 87040; 87070; 87077; 87086; 87186; 87205; 87449; 94660; 94762; 96365; 96375; 99285-25; A9270; A9270-GY; J0456; J0692; J0696; J1644; J2310; J3370; J7030; J7050; J7060

== ENCOUNTER → 2020-07-30 | Outpatient (CLI) | payer MEDICARE, BC ==
[~2020-07-30] MED LIST changes: +ABAT250V; +ADULT GLYCERIN1 EACH PR; +ALMACONE SUSPE355 ML PO; +CEFTRIAXON1 GM/50 M1 IV; +DULCOLAX400 MG/5 M PO; +PROBIOTIC PO; +ROPINIROLE HCL0.5 MG PO; +TAMSULOSIN HCL0.4 M1 PO; +VIT1CAPS12 PO
[2020-07-30 18:47] LABS: PSA, %Free 31.6 %; PSA, Free 0.315 ng/mL; Prostate Specific Antigen 0.997 ng/mL (0.000-4.000)
== END | disposition home or self-care (01) ==
LOC: LAB SHORT 16:16 → LAB 16:16
PROVIDERS: Physician Assistant
DX: N40.1 Benign prostatic hyperplasia with lower urinary tract symptoms (principal)
CPT/HCPCS: 84153; 84154

== ENCOUNTER → 2020-12-26 | Outpatient (CLI) | payer MEDICARE, BC ==
[2020-12-26 19:57] LABS: Appearance, Urine Clear (Clear); Bilirubin, Urine Neg (Neg); Blood, Urine Neg (Neg); Color, Urine Yellow (P-Yellow); Glucose Qualitative, Urine Neg (Neg); Ketones, Urine Neg (Neg); Leukocyte Esterase, Urine 2+ (Neg); Nitrite, Urine Neg (Neg); Protein, Urine 1+ (Neg); Urobilinogen, Urine NORM (Normal)
[2020-12-26 20:12] LABS: Bacteria Rare /hpf; Red Blood Cells, Urine 0-2 /hpf (0-2); Squamous Epithelial Cells Mod /hpf (Few); Transitional Epithelial Cells Rare /hpf (0-Rare)
== END ==
LOC: LAB SHORT 19:09 → LAB 19:09
PROVIDERS: Family Medicine
DX: N39.0 Urinary tract infection, site not specified (principal)
CPT/HCPCS: 81001

== ENCOUNTER → 2021-01-02 | Outpatient (CLI) | payer MEDICARE, BC ==
[2021-01-02 17:34] LABS: Appearance, Urine Hazy (Clear); Bilirubin, Urine Neg (Neg); Blood, Urine 2+ (Neg); Color, Urine Yellow (P-Yellow); Glucose Qualitative, Urine Neg (Neg); Ketones, Urine Neg (Neg); Leukocyte Esterase, Urine 3+ (Neg); Nitrite, Urine Neg (Neg); Protein, Urine 2+ (Neg); Urobilinogen, Urine NORM (Normal)
[2021-01-02 17:42] LABS: Bacteria Many /hpf; Squamous Epithelial Cells Rare /hpf (Few); Triple Phosphate Crystals Rare /hpf; White Blood Cells, Urine 25-50 /hpf (0-5)
== END | disposition home or self-care (01) ==
LOC: LAB SHORT 16:27
PROVIDERS: Physician Assistant
DX: R35.0 Frequency of micturition (principal)
CPT/HCPCS: 81001; 87077; 87086; 87186

== ENCOUNTER → 2021-01-14 | Outpatient (CLI) | payer MEDICARE, BC ==
[2021-01-14 18:48] LABS: Appearance, Urine Hazy (Clear); Bilirubin, Urine Neg (Neg); Blood, Urine 3+ (Neg); Color, Urine Yellow (P-Yellow); Glucose Qualitative, Urine Neg (Neg); Ketones, Urine Neg (Neg); Leukocyte Esterase, Urine 3+ (Neg); Nitrite, Urine Neg (Neg); Protein, Urine 2+ (Neg); Urobilinogen, Urine NORM (Normal)
[2021-01-14 18:57] LABS: Triple Phosphate Crystals Many /hpf
[2021-01-14 18:58] LABS: White Blood Cells, Urine 25-50 /hpf (0-5)
[2021-01-14 18:59] LABS: Bacteria Many /hpf; Red Blood Cells, Urine Rare /hpf (0-2); Squamous Epithelial Cells Rare /hpf (Few); Transitional Epithelial Cells Rare /hpf (0-Rare)
== END | disposition home or self-care (01) ==
LOC: LAB SHORT 13:55 → LAB 13:55
PROVIDERS: Physician Assistant
DX: N39.0 Urinary tract infection, site not specified (principal)
CPT/HCPCS: 81001; 87077; 87086; 87186

== ENCOUNTER 2021-02-10 15:23 | Emergency (ER) | payer MEDICARE, BC ==
[~2021-02-10] VITALS: Ht 172.7 cm; Wt 87.5 kg
[2021-02-10 16:42] LABS: BASOPHILS ABSOLUTE AUTO 0.04 K/mm3 (0.00-0.23); BASOPHILS PERCENT AUTO 0 % (0-2); EOSINOPHILS PERCENT AUTO 3 % (0-6); Hemoglobin 14.6 g/dL (13.5-17.5); IMMATURE GRAN ABSOLUTE AUTO 0.06 K/mm3 (0.00-0.10); IMMATURE GRAN PERCENT AUTO 1 % (0-1); LYMPHOCYTES ABSOLUTE AUTO 1.36 K/mm3 (0.84-5.20); LYMPHOCYTES PERCENT AUTO 14 % (21-46); MONOCYTES ABSOLUTE AUTO 0.62 K/mm3 (0.16-1.47); MONOCYTES PERCENT AUTO 6 % (4-13); Mean Corpuscular HGB 28.7 pg (26.0-34.0); Mean Corpuscular HGB Conc 33.2 g/dL (31.5-36.5); Mean Corpuscular Volume 87 fL (80-100); Mean Platelet Volume 9.8 fL (9.1-12.4); NEUTROPHILS ABSOLUTE AUTO 7.67 K/mm3 (1.96-9.15); NEUTROPHILS PERCENT AUTO 76 % (41-73); Platelet Count 227 K/mm3 (150-400); RDW Coefficient Variation 13.8 % (11.7-14.2); RDW Standard Deviation 43.9 fL (35.1-46.3); Red Blood Cell Count 5.08 M/mm3 (4.30-5.90); White Blood Cell Count 10.05 K/mm3 (4.00-11.30)
[2021-02-10 17:08] LABS: Alanine Aminotransfer (ALT/SGP 18 U/L (12-78); Albumin, Blood 3.1 g/dL (3.4-5.0); Albumin/Globulin Ratio 0.7 (0.8-1.8); Alk Phos 94 U/L (50-136); Anion Gap 6 mmol/L (6-16); Aspartate Aminotrans (AST/SGOT 16 U/L (12-37); Bilirubin, Total 0.2 mg/dL (0.1-1.0); Blood Urea Nitrogen 32 mg/dL (8-24); Bun/Creatinine Ratio 18.4 (12.0-20.0); CO2, Blood 25 mmol/L (21-32); Chloride, Blood 107 mmol/L (98-108); Creatinine, Blood 1.74 mg/dL (0.60-1.20); Globulin, Blood 4.6 g/dL (2.2-4.0); Glomerular Filtration Rate 37 (60-); Glucose, Blood 187 mg/dL (70-99); Potassium, Blood 4.4 mmol/L (3.5-5.5); Sodium, Blood 138 mmol/L (136-145); Total Protein, Blood 7.7 g/dL (6.4-8.2); Troponin I <0.015 ng/mL (0.000-0.040)
[2021-02-10 17:24] LABS: Influenza A, PCR NEGATIVE (NEGATIVE); Influenza B, PCR NEGATIVE (NEGATIVE); Resp Syncytial Virus, PCR NEGATIVE (NEGATIVE); SARS-Cov-2 (COVID-19) PCR, MMC NEGATIVE (NEGATIVE)
[2021-02-10] MEDS ORDERED: Oxybutynin Chlo15 MG PO ×2 (18:12→18:24)
[2021-02-10] MEDS ORDERED: ROPINIROLE HCL4 M2 PO (18:13)
[2021-02-10] MEDS ORDERED: GABA100 PO (18:15)
[2021-02-10] MEDS ORDERED: ZYRTEC10 M2 PO (18:20)
[2021-02-10] MEDS ORDERED: Flonase 0.05% N16 GM (18:21)
[2021-02-10] MEDS ORDERED: LANTUS SOL100 UNIT/1 SC (18:22)
[2021-02-10] MEDS ORDERED: Acetaminophen325 M1 PO (18:28)
[2021-02-10] MEDS ORDERED: LOPE2C PO (18:29)
[2021-02-10] MEDS ORDERED: TRAM50 PO (18:30)
[2021-02-10 18:58] LABS: Source, Urine Clean Catch
[2021-02-10 19:01] LABS: Appearance, Urine Cloudy (Clear); Bilirubin, Urine Neg (Neg); Blood, Urine 2+ (Neg); Glucose Qualitative, Urine Neg (Neg); Ketones, Urine Neg (Neg); Leukocyte Esterase, Urine 3+ (Neg); Nitrite, Urine Neg (Neg); Protein, Urine 2+ (Neg); Urobilinogen, Urine NORM (Normal)
[2021-02-10 19:11] LABS: Color, Urine Pale Yellow (P-Yellow)
[2021-02-10 19:12] LABS: Triple Phosphate Crystals Mod /hpf; White Blood Cells, Urine TNTC /hpf (0-5)
[2021-02-10 19:13] LABS: Bacteria Many /hpf; Squamous Epithelial Cells Not Seen /hpf (Few)
[2021-02-10] MEDS ORDERED: CEFD300 PO (20:24)
== END 2021-02-10 21:25 | disposition home or self-care (01) ==
LOC: ER 15:23
PROVIDERS: Physician Assistant; Student in an Organized Health Care Education/Training Program
DX: N39.0 Urinary tract infection, site not specified (principal); R05.9 Cough, unspecified; I12.9 Hypertensive chronic kidney disease with stage 1 through stage 4 chronic kidney disease, or unspecified chronic kidney disease; E11.22 Type 2 diabetes mellitus with diabetic chronic kidney disease; N18.30 Chronic kidney disease, stage 3 unspecified; E11.51 Type 2 diabetes mellitus with diabetic peripheral angiopathy without gangrene; E11.40 Type 2 diabetes mellitus with diabetic neuropathy, unspecified; Z87.891 Personal history of nicotine dependence; Z20.822 Contact with and (suspected) exposure to COVID-19
CPT/HCPCS: 0241U; 36415; 71046; 80053; 81001; 83880; 84484; 85025; 87077; 87086; 87186; 93005; 93010; 99284-25; A9270

== ENCOUNTER → 2021-02-25 | Outpatient (CLI) | payer MEDICARE, BC ==
[~2021-02-25] MED LIST changes: +Acetaminophen325 M1 PO; +CEFD300 PO; +Flonase 0.05% N16 GM; +GABA100 PO; +LANTUS SOL100 UNIT/1 SC; +LOPE2C PO; +Oxybutynin Chlo15 MG PO; +ROPINIROLE HCL4 M2 PO; +TRAM50 PO; +ZYRTEC10 M2 PO
[2021-02-26 12:49] LABS: Appearance, Urine Turbid (Clear); Bilirubin, Urine Neg (Neg); Blood, Urine 4+ (Neg); Color, Urine Yellow (P-Yellow); Glucose Qualitative, Urine Neg (Neg); Ketones, Urine Neg (Neg); Leukocyte Esterase, Urine 3+ (Neg); Nitrite, Urine Neg (Neg); Protein, Urine 3+ (Neg); Urobilinogen, Urine NORM (Normal)
[2021-02-26 12:59] LABS: Amorphous Light (0-Heavy); Bacteria Mod /hpf; Mucus Light (0-Heavy); Red Blood Cells, Urine 50-100 /hpf (0-2); Squamous Epithelial Cells Few /hpf (Few)
== END | disposition home or self-care (01) ==
LOC: LAB SHORT 16:41
PROVIDERS: Physician Assistant
DX: N39.0 Urinary tract infection, site not specified (principal)
CPT/HCPCS: 81001; 87077; 87086; 87186

== ENCOUNTER → 2021-03-17 | Outpatient (CLI) | payer MEDICARE, BC ==
[2021-03-17 10:30] LABS: BASOPHILS ABSOLUTE AUTO 0.06 K/mm3 (0.00-0.23); BASOPHILS PERCENT AUTO 1 % (0-2); EOSINOPHILS ABSOLUTE AUTO 0.22 K/mm3 (0.00-0.68); EOSINOPHILS PERCENT AUTO 2 % (0-6); Hematocrit 44.8 % (37.0-53.0); Hemoglobin 14.5 g/dL (13.5-17.5); IMMATURE GRAN ABSOLUTE AUTO 0.02 K/mm3 (0.00-0.10); IMMATURE GRAN PERCENT AUTO 0 % (0-1); LYMPHOCYTES ABSOLUTE AUTO 1.02 K/mm3 (0.84-5.20); LYMPHOCYTES PERCENT AUTO 11 % (21-46); MONOCYTES ABSOLUTE AUTO 0.58 K/mm3 (0.16-1.47); MONOCYTES PERCENT AUTO 6 % (4-13); Mean Corpuscular HGB 28.5 pg (26.0-34.0); Mean Corpuscular HGB Conc 32.4 g/dL (31.5-36.5); Mean Corpuscular Volume 88 fL (80-100); Mean Platelet Volume 9.6 fL (9.1-12.4); NEUTROPHILS PERCENT AUTO 79 % (41-73); Platelet Count 237 K/mm3 (150-400); RDW Coefficient Variation 14.1 % (11.7-14.2); RDW Standard Deviation 45.1 fL (35.1-46.3); Red Blood Cell Count 5.08 M/mm3 (4.30-5.90)
[2021-03-17 12:16] LABS: Albumin, Blood 3.4 g/dL (3.4-5.0); Albumin/Globulin Ratio 0.9 (0.8-1.8); Bilirubin, Total 0.6 mg/dL (0.1-1.0); Bun/Creatinine Ratio 20.7 (12.0-20.0); Calcium, Blood 8.9 mg/dL (8.5-10.1); Creatinine, Blood 1.64 mg/dL (0.60-1.20); Globulin, Blood 3.7 g/dL (2.2-4.0); Potassium, Blood 4.5 mmol/L (3.5-5.5); Total Protein, Blood 7.1 g/dL (6.4-8.2)
== END | disposition home or self-care (01) ==
LOC: LAB SHORT 09:36
PROVIDERS: Physician Assistant
DX: E11.21 Type 2 diabetes mellitus with diabetic nephropathy (principal); I10 Essential (primary) hypertension
CPT/HCPCS: 36415; 80053; 83036; 85025

== ENCOUNTER → 2021-04-08 | Outpatient (CLI) | payer MEDICARE, BC ==
[2021-04-08 16:10] LABS: Appearance, Urine Hazy (Clear); Bilirubin, Urine Neg (Neg); Blood, Urine 2+ (Neg); Color, Urine Yellow (P-Yellow); Glucose Qualitative, Urine Neg (Neg); Ketones, Urine Neg (Neg); Leukocyte Esterase, Urine 3+ (Neg); Nitrite, Urine Neg (Neg); Protein, Urine 2+ (Neg); Urobilinogen, Urine NORM (Normal)
[2021-04-08 17:46] LABS: Bacteria Many /hpf; Mucus Heavy (0-Heavy); Red Blood Cells, Urine 0-2 /hpf (0-2); Squamous Epithelial Cells Rare /hpf (Few)
[2021-04-08 17:47] LABS: Triple Phosphate Crystals Few /hpf
== END ==
LOC: LAB SHORT 13:00 → LAB 13:00
PROVIDERS: Physician Assistant
DX: N39.0 Urinary tract infection, site not specified (principal)
CPT/HCPCS: 81001

== ENCOUNTER → 2021-06-02 | Outpatient (CLI) | payer MEDICARE, BC ==
[2021-06-02 15:36] LABS: Bilirubin, Urine Neg (Neg); Blood, Urine 3+ (Neg); Glucose Qualitative, Urine Neg (Neg); Ketones, Urine Neg (Neg); Leukocyte Esterase, Urine 3+ (Neg); Nitrite, Urine Pos (Neg); Protein, Urine 1+ (Neg); Urobilinogen, Urine NORM (Normal)
[2021-06-02 16:05] LABS: Appearance, Urine Hazy (Clear); Color, Urine Yellow (P-Yellow)
[2021-06-02 16:06] LABS: Bacteria Many /hpf; Squamous Epithelial Cells Rare /hpf (Few); White Blood Cells, Urine TNTC /hpf (0-5)
== END | disposition home or self-care (01) ==
LOC: LAB SHORT 09:55
PROVIDERS: Nurse Practitioner
DX: N39.0 Urinary tract infection, site not specified (principal)
CPT/HCPCS: 81001; 87077; 87086; 87186

== ENCOUNTER → 2021-06-30 | Outpatient (CLI) | payer MEDICARE, BC ==
[2021-06-30 19:29] LABS: Alanine Aminotransfer (ALT/SGP 19 U/L (12-78); Albumin, Blood 3.4 g/dL (3.4-5.0); Albumin/Globulin Ratio 0.9 (0.8-1.8); Alk Phos 95 U/L (50-136); Anion Gap 5 mmol/L (6-16); Aspartate Aminotrans (AST/SGOT 16 U/L (12-37); Bilirubin, Total 0.3 mg/dL (0.1-1.0); Blood Urea Nitrogen 37 mg/dL (8-24); Bun/Creatinine Ratio 27.6 (12.0-20.0); CHOL/HDL RATIO 9.4; CO2, Blood 27 mmol/L (21-32); Calcium, Blood 8.4 mg/dL (8.5-10.1); Chloride, Blood 105 mmol/L (98-108); Cholesterol 170 mg/dL (50-200); Creatinine, Blood 1.34 mg/dL (0.60-1.20); Globulin, Blood 3.9 g/dL (2.2-4.0); Glomerular Filtration Rate 51 (60-); Glucose, Blood 220 mg/dL (70-99); HDL Cholesterol 18 mg/dL (>39); LDL/HDL RATIO Unable to Calculate; Low Density Lipoprotein Chol Unable to Calculate mg/dL (0-110); Potassium, Blood 4.3 mmol/L (3.5-5.5); Sodium, Blood 137 mmol/L (136-145); Total Protein, Blood 7.3 g/dL (6.4-8.2); Triglycerides 582 mg/dL (30-160); Very Low Density Lipoprot Chol Unable to Calculate mg/dL (6-32)
[2021-06-30 19:42] LABS: LDL Direct Measurement 100 mg/dL (0-130)
== END ==
LOC: LAB SHORT 15:00
PROVIDERS: Nurse Practitioner
DX: Z11.59 Encounter for screening for other viral diseases (principal); E11.21 Type 2 diabetes mellitus with diabetic nephropathy; E78.5 Hyperlipidemia, unspecified; I10 Essential (primary) hypertension
CPT/HCPCS: 80053; 80061; 82043; 83036; 83721

== ENCOUNTER → 2021-08-03 | Outpatient (CLI) | payer MEDICARE, BC ==
[2021-08-03 14:45] LABS: Source, Urine Voided
[2021-08-03 15:49] LABS: Appearance, Urine Hazy (Clear); Bilirubin, Urine Neg (Neg); Blood, Urine 3+ (Neg); Color, Urine Yellow (P-Yellow); Glucose Qualitative, Urine Neg (Neg); Ketones, Urine Neg (Neg); Leukocyte Esterase, Urine 3+ (Neg); Nitrite, Urine Neg (Neg); Protein, Urine 2+ (Neg); Specific Gravity, Urine 1.015 (1.003-1.022); Urobilinogen, Urine NORM (Normal)
[2021-08-03 16:22] LABS: White Blood Cells, Urine TNTC /hpf (0-5)
[2021-08-03 16:24] LABS: Bacteria Many /hpf; Squamous Epithelial Cells Rare /hpf (Few)
== END | disposition home or self-care (01) ==
LOC: LAB SHORT 14:42 → LAB 14:42
PROVIDERS: Physician Assistant
DX: N39.0 Urinary tract infection, site not specified (principal)
CPT/HCPCS: 81001

== ENCOUNTER → 2021-09-14 | Outpatient (CLI) | payer MEDICARE, BC ==
[2021-09-15 15:07] LABS: Appearance, Urine Cloudy (Clear); Bilirubin, Urine Neg (Neg); Blood, Urine 3+ (Neg); Color, Urine Yellow (P-Yellow); Glucose Qualitative, Urine Neg (Neg); Ketones, Urine Neg (Neg); Leukocyte Esterase, Urine 3+ (Neg); Nitrite, Urine Neg (Neg); Protein, Urine 2+ (Neg); Specific Gravity, Urine 1.015 (1.003-1.022); Urobilinogen, Urine NORM (Normal)
[2021-09-15 15:19] LABS: White Blood Cells, Urine TNTC /hpf (0-5)
[2021-09-15 15:21] LABS: Bacteria Few /hpf; Squamous Epithelial Cells Few /hpf (Few); Yeast/Fungi Urine Mod /hpf
== END | disposition home or self-care (01) ==
LOC: LAB SHORT 14:12
PROVIDERS: Physician Assistant
DX: N39.0 Urinary tract infection, site not specified (principal)
CPT/HCPCS: 81001; 87077; 87086; 87186

== ENCOUNTER 2022-01-12 12:32 | Inpatient (IN) | payer OTHER ==
[~2022-01-12] VITALS: Ht 142.2 cm; Wt 90.6 kg
[2022-01-12 14:35] LABS: BASOPHILS ABSOLUTE AUTO 0.05 K/mm3 (0.00-0.23); BASOPHILS PERCENT AUTO 1 % (0-2); EOSINOPHILS ABSOLUTE AUTO 0.21 K/mm3 (0.00-0.68); EOSINOPHILS PERCENT AUTO 2 % (0-6); Hematocrit 41.4 % (37.0-53.0); Hemoglobin 13.6 g/dL (13.5-17.5); IMMATURE GRAN ABSOLUTE AUTO 0.05 K/mm3 (0.00-0.10); IMMATURE GRAN PERCENT AUTO 1 % (0-1); LYMPHOCYTES PERCENT AUTO 8 % (21-46); MONOCYTES ABSOLUTE AUTO 0.66 K/mm3 (0.16-1.47); MONOCYTES PERCENT AUTO 6 % (4-13); Mean Corpuscular HGB 27.4 pg (26.0-34.0); Mean Corpuscular HGB Conc 32.9 g/dL (31.5-36.5); Mean Corpuscular Volume 83 fL (80-100); Mean Platelet Volume 9.7 fL (9.1-12.4); NEUTROPHILS ABSOLUTE AUTO 8.78 K/mm3 (1.96-9.15); NEUTROPHILS PERCENT AUTO 83 % (41-73); Platelet Count 215 K/mm3 (150-400); RDW Coefficient Variation 14.7 % (11.7-14.2); RDW Standard Deviation 44.7 fL (35.1-46.3); Red Blood Cell Count 4.97 M/mm3 (4.30-5.90); White Blood Cell Count 10.55 K/mm3 (4.00-11.30)
[2022-01-12 14:55] LABS: Albumin, Blood 3.4 g/dL (3.4-5.0); Albumin/Globulin Ratio 0.8 (0.8-1.8); Bilirubin, Total 0.4 mg/dL (0.1-1.0); Bun/Creatinine Ratio 19.5 (12.0-20.0); Calcium, Blood 8.4 mg/dL (8.5-10.1); Creatinine, Blood 1.59 mg/dL (0.60-1.20); Globulin, Blood 4.1 g/dL (2.2-4.0); Potassium, Blood 4.6 mmol/L (3.5-5.5); Total Protein, Blood 7.5 g/dL (6.4-8.2)
[2022-01-12 15:11] LABS: Influenza A, PCR NEGATIVE (NEGATIVE); Influenza B, PCR NEGATIVE (NEGATIVE); Resp Syncytial Virus, PCR NEGATIVE (NEGATIVE); SARS-Cov-2 (COVID-19) PCR, MMC NEGATIVE (NEGATIVE)
[2022-01-12] MEDS ORDERED: Ventolin/Proventil INH (16:44)
[2022-01-12] MEDS ORDERED: AMLO10 PO (16:45)
[2022-01-12] MEDS ORDERED: BACL10 PO (16:46)
[2022-01-12] MEDS ORDERED: ZYRTEC10 M2 PO (16:48)
[2022-01-12] MEDS ORDERED: Oxybutynin Chlo15 MG PO (16:49)
[2022-01-12] MEDS ORDERED: Ropinirole HCl5 MG PO (16:51)
[2022-01-12] MEDS ORDERED: FLOMAX0.4 MG PO (16:52)
[2022-01-12] MEDS ORDERED: TRAZ50 PO (16:53)
--- NOTE | 2022-01-12 18:32 | NUR ---
SHIFT SUMMARY: PATIENT ARRIVED TO [facility] APPROX 1730 VIA GURNEY. HE IS AO X 4 ON ARRIVAL. HE IS ON 3 LITERS 02 VIA NASAL CANNULA. 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 NO SKIN ISSUES ARE IDENTIFIED. PATIENT HAS A SCALES CATHETER PLACED BY A UROLOGIST IN [place] 2 WEEKS AGO. WILL PASS ON TO NOC SHIFT TO REPLACE PER PROTOCOL. HE HAS A HISTORY OF DM2 HEART DISEASE HTN, CKD3 AND 3 BACK SURGERIES. HE IS COUGHING AND HAS PRODUCTIVE COUGH WHICH DEE DEE SAYS IS THICK BUT SWALLOWS AND DOES NOT SPIT OUT. HE LIVES AT [facility]. HE IS A FULL CODE PER PATIENT VERBAL REQUEST. NOTIFIED AND ORDER TO CHANGE TO FULL CODE FROM A DNR IN [facility] RECORD. 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
--- NOTE | 2022-01-13 04:06 | NUR ---
SHIFT SUMMARY ADMITTED FOR PNEUMONIA. FULL CODE. ECHO PLANNED FOR CHF. UROLOGIST FROM [place] MANAGES CHRONIC SCALES. [facility]S CHEMSTICKS. ADA DIET. ELECTRIC WHEELCHAIR AT [facility]. FROM [facility]. KARLIE MENDEZ'S. A&O X4. 3 LPM O2 HERE, RA @ [facility]. IV ANTIB RX ARE SCHEDULED. 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 COVID AND FLU NEGATIVE
[2022-01-13 06:18] LABS: Albumin, Blood 3.1 g/dL (3.4-5.0); Anion Gap 4 mmol/L (6-16); Blood Urea Nitrogen 32 mg/dL (8-24); Bun/Creatinine Ratio 18.5 (12.0-20.0); CO2, Blood 32 mmol/L (21-32); Calcium, Blood 8.5 mg/dL (8.5-10.1); Chloride, Blood 104 mmol/L (98-108); Creatinine, Blood 1.73 mg/dL (0.60-1.20); Glomerular Filtration Rate 37 (60-); Glucose, Blood 141 mg/dL (70-99); Phosphorus, Blood 4.4 mg/dL (2.5-4.9); Potassium, Blood 4.6 mmol/L (3.5-5.5); Sodium, Blood 140 mmol/L (136-145)
--- NOTE | 2022-01-13 16:00 | NUR ---
Patient is sitting in his room and motions me to come in. I visit with pt as he tells me about his life, his struggles and his family. I provide therapeutic listening and levity. Pt responds well and shows signs of an elevated mood.
--- NOTE | 2022-01-13 16:20 | NUR ---
EVENING NOTE PT UP IN W/C. TALKING ON THE PHONE. HIS DRY, BARKY COUGH MUCH IMPROVED AFTER TESSELON QUYEN, MUCINEX AND DUONEB TX. VOICE QUALITY IMPROVED. HIS ONLY COMPLAINT NOW IS HIS NECK IS STIFF FROM COUGHING. CONTINUE POC.
--- NOTE | 2022-01-14 03:45 | NUR ---
SHIFT SUMMARY NOC PT A/OX4. PT ON O2 2L/NC SPO2 OF 92%. PT HAD C/O SOB AND RT WAS CALLED AND PT GIVEN DUONEB TX WHICH HELPED TO RESOLVE ISSUE. PT THEN STARTED COUGHING HARSHLY DUE TO ANXIETY ABOUT BEING SCARED OF GOING TO SLEEP AND NOT WAKING UP. PT WAS REASSURED THAT THEY WOULD BE OK AND PT WAS MEDICATED PER EMAR WITH 50MG OF TRAZODONE AND THAT EASED PT ANXIETY AND ALLOWED FOR REST. PT ASKED ABOUT A NASAL CPAP MASK AND THIS WAS PASSED ALONG TO RT WHO SAID THEY WOULD GET BACK WITH PT DURING DAY SHIFT IF MASK IS AVAILABLE. PT VSS. PT IS CURRENTLY RESTING WITH RAILS UP, BED IN LOWEST POSITION, AND CALL LIGHT WITHIN REACH. PT IS AWAITING WORD ON D/C BACK TO [facility] SO THAT THEY DO NOT LOSE BED.
--- NOTE | 2022-01-14 18:45 | NUR ---
SHIFT SUMMARY PT A/O X4; PLEASANT AND COOPERATIVE WITH CARE. PT ENCOURAGED TO SPIT OUT SECRETIONS AND IS DOING WELL USING WALL SUCTION. SCALES LEAKING SO BAG WAS CHANGED, BALLOON DEFLATED AND SCALES INSERTED FURTHER. DOCTOR NOTIFIED AND WILL LOOK AT SCALES IN THE AM.
--- NOTE | 2022-01-15 03:55 | NUR ---
SHIFT SUMMARY NOC PT A/OX4. PT HAS BEEN USING SUCTION TO CONTROL SECRETIONS. PT HAS HAD 2 DUONEB BREATHING TX FROM RT SO FAR TO LOOSEN UP SECRETIONS. PT GETS EXTREMELY ANXIOUS WHEN COUGHING AND UNABLE TO COMPLETELY EXPEL SECRETIONS. PT WAS MEDICATED PER EMAR AND MONITORED WITH SPO2 VS MONITOR. PT CONTINUES TO REMOVE O2 AND QUICKLY DESATS INTO LOW 80'S BUT QUICKLY RECOVERS BACK TO 94%. PT O2 HAD BEEN TITRATED UP TO 4L/NC AND IS MAINTAINING SPO2 OF 95% WHEN AWAKE. PT GETS APNEIC WHEN RESTING AND DESATS FAST AND RECOVERS A FEW SECONDS LATER. PT REFUSES TO TRY CPAP MACHINE. RN AND RT HAVE EDUCATED PT ON BENEFITS OF USING CPAP. WILL CONTINUE TO MONITOR. PT WAS GIVEN TRAZADONE TO HELP PT SLEEP. PT HAS IV IN RFA THAT IS PATENT AND SALINE LOCKED. SCALES IN PLACE DRAINING YELLOW URINE TO GRAVITY. PT IS CURRENTLY RESTING WITH BED RAILS UP, BED IN LOWEST POSITION, AND CALL LIGHT WITHIN REACH.
[2022-01-15 04:44] LABS: BASOPHILS ABSOLUTE AUTO 0.05 K/mm3 (0.00-0.23); BASOPHILS PERCENT AUTO 1 % (0-2); EOSINOPHILS ABSOLUTE AUTO 0.21 K/mm3 (0.00-0.68); EOSINOPHILS PERCENT AUTO 2 % (0-6); Hemoglobin 12.8 g/dL (13.5-17.5); IMMATURE GRAN ABSOLUTE AUTO 0.02 K/mm3 (0.00-0.10); IMMATURE GRAN PERCENT AUTO 0 % (0-1); LYMPHOCYTES ABSOLUTE AUTO 0.51 K/mm3 (0.84-5.20); LYMPHOCYTES PERCENT AUTO 5 % (21-46); MONOCYTES ABSOLUTE AUTO 0.66 K/mm3 (0.16-1.47); MONOCYTES PERCENT AUTO 7 % (4-13); Mean Corpuscular HGB 26.9 pg (26.0-34.0); Mean Corpuscular Volume 84 fL (80-100); Mean Platelet Volume 9.3 fL (9.1-12.4); NEUTROPHILS ABSOLUTE AUTO 8.09 K/mm3 (1.96-9.15); NEUTROPHILS PERCENT AUTO 85 % (41-73); Platelet Count 188 K/mm3 (150-400); RDW Coefficient Variation 14.6 % (11.7-14.2); Red Blood Cell Count 4.75 M/mm3 (4.30-5.90); White Blood Cell Count 9.54 K/mm3 (4.00-11.30)
[2022-01-15 05:26] LABS: Albumin, Blood 3.3 g/dL (3.4-5.0); Anion Gap 5 mmol/L (6-16); Blood Urea Nitrogen 31 mg/dL (8-24); Bun/Creatinine Ratio 17.2 (12.0-20.0); CO2, Blood 31 mmol/L (21-32); Calcium, Blood 8.8 mg/dL (8.5-10.1); Chloride, Blood 102 mmol/L (98-108); Glomerular Filtration Rate 36 (60-); Glucose, Blood 128 mg/dL (70-99); Magnesium, Blood 2.5 mg/dL (1.6-2.4); Phosphorus, Blood 3.9 mg/dL (2.5-4.9); Potassium, Blood 4.3 mmol/L (3.5-5.5); Sodium, Blood 138 mmol/L (136-145)
[2022-01-15 08:46] LABS: PCO2 Arterial 55.4 mmHg (35-45); PO2 Arterial 53.5 mmHg (80-100); pH Blood Arterial 7.35 (7.35-7.45)
--- NOTE | 2022-01-15 18:37 | NUR ---
SHIFT SUMMARY PT'S BREATHING SEEMS TO HAVE WORSENED THIS SHIFT. PT IS COUGHING CONSTANTLY WITH NO RELIEF AND COUGHING UP THICK, JOSE SPUTUM. HE ALSO REPORTED HALLUCINATING SPIDERS ON THE CEILING. PT PREVIOUSLY A/O X4. ABG SHOWED THAT PT RETAINING CO2 AND NOW ALTERNATING BETWEEN BIPAP AND NC AT 5 LITERS IN ORDER TO MAINTAIN O2 SATS >92%
[2022-01-15 22:10] LABS: PCO2 Arterial 56.3 mmHg (35-45); PO2 Arterial 115 mmHg (80-100); pH Blood Arterial 7.34 (7.35-7.45)
--- NOTE | 2022-01-15 22:11 | NUR ---
PT RESTLESS AND PULLING AT BIPAP HOSE. NOTIFIED RT OF PTS STATUS AND THAT THE BIPAP MACHINE WAS SHOWING ALARMS. RT CALLED HOSPITALIST TO OBTAIN ORDER FOR ABG, RT IS CONCERNED THAT THE PT IS HYPERCAPNIC. CURRENTLY WAITING FOR ABG RESULTS.
--- NOTE | 2022-01-15 22:16 | NUR ---
ABG RESULTS BACK, PATIENTS CO2 LEVEL WAS 55 BUT PH WAS WITHIN RANGE. RT ADJUSTED BIPAP SETTINGS, PT SEEMS TO BE RESPONDING BETTER TO NEW SETTINGS. PT IS MORE ALERT. O2 SATS ARE MAINTAINING GREATER THAN 95%.
--- NOTE | 2022-01-16 06:22 | NUR ---
SHIFT SUMMARY; PT AT BEGINNING OF SHIFT HAD VERY LABORED BREATHING BUT WITH O2 SATS GREATER THAN 95% ON 5L NC. PT REQUESTED TO BE PUT ON THE BIPAP FOR NIGHT TIME, RT CONTACTED AND PLACED PT ON BIPAP. PT BECAME DIFFICULT TO AROUSE WHILE ON BIPAP, RT CONTACTED, RT NOHEMY A ABG WHICH REVEALED HYPERCAPNIA FULLY COMPENSATED. NIGHTTIME MEDS HELD DUE TO ASPIRATION RISK DIRECTLY RELATED TO THE PT BEING DROWSY. ONCE THE BIPAP SETTINGS WERE CHANGED BY RT PT BECAME ALERT AND ORIENTATED. PT UP THIS AM ON 5L NC WITH O2 SATS GREATER THAN 95%. PT COMPLAINS OF SORENESS IN HIS TUMMY RELATED TO COUGHING, MEDICATED PER EMAR. PT WITH HACKING COUGH THIS AM AND COPIOUS AMOUNTS OF JOSE THICK SPUTUM. PT CURRENTLY RESTING IN BED WITH THE BED IN THE LOWEST POSITION AND THE CALL LIGHT AT BEDSIDE.
[2022-01-16 11:59] LABS: Influenza B, PCR NEGATIVE (NEGATIVE); Resp Syncytial Virus, PCR NEGATIVE (NEGATIVE); SARS-Cov-2 (COVID-19) PCR, MMC NEGATIVE (NEGATIVE)
--- NOTE | 2022-01-16 12:18 | NUR ---
ASSUMED PT CARE AT 1140 FROM MED FLOOR PT TRANSFERRED TO ICU D/T INCREASED WORK OF BREATHING AND SOB DESPITE CPAP AT 6-14 CM H20 WITH OXYGEN SATURATIONS >90%. RESP RATE >30. UPON ARRIVAL TO UNIT PT UTILIZING ACCESSORY MUSCLES TO BREATHE; ONLY ABLE TO SPEAK IN 1-2 WORD SENTENCES. PT NOTED TO BE SINUS TACHYCARDIA WITH HR 120'S. ELEVATED BP'S WITH SBP 160-180'S. POWERGLIDE ACCESS OBTAINED TO LEFT UPPER ARM AND 18G PLACED TO RIGHT HAND. PT REMAINS SALINE LOCKED AT THIS TIME. DR. PINA AND DR. GO AT BEDSIDE AT TIME OF ARRIVAL. RT TO DRAW ABG AND SWITCHED PT FROM CPAP TO BIPAP WITH SETTINGS 16/10; FIO2 45% WITH SPO2 97%, RR 33. FAMILY IS AT BEDSIDE NOW. RESP RATE IS STILL ELEVATED, BUT PT APPEARS MORE COMFORTABLE AT THIS TIME. CALL LIGHT IS WITHIN REACH.
--- NOTE | 2022-01-16 12:25 | NUR ---
TRANSFER NOTE PT DEMONSTRATED INCREASED EFFORT TO BREATH, O2 SATS DECREASING AND PULSE INCREASING. DR. GO NOTIFIED AND THE PT WAS SEEN. PROVIDER DETERMINED PT SHOULD BE TRANSFERRED TO ICU FOR FURTHER CARE. REPORT GIVEN TO SILVIA WORRELL. PT TRANSFERRED VIA BED AND POSESSIONS GIVEN TO PT.
[2022-01-16 12:27] LABS: Influenza A, PCR POSITIVE (NEGATIVE)
--- NOTE | 2022-01-16 18:06 | NUR ---
END OF SHIFT SUMMARY PT REMAINS ALERT AND ORIENTED AND ABLE TO MAKE HIS NEEDS KNOWN. DIFFICULT TO AROUSE AT TIMES. INFORMED PT I HAD TO STERNAL RUB HIS CHEST TO GET HIM TO WAKE UP EARLIER. ASKED IF HE WAS A DEEP SLEEPER AND HE STATED HE DIDN'T KNOW, BUT HE HAS BEEN EXTREMEMLY TIRED. WOKE UP TO VERBAL STIMULI A LITTLE WHILE AGO. PERFORMED ORAL CARES AND PT WAS ABLE TO DRINK THIN LIQUIDS WITH NO SIGNS OF ASPIRATION. PT ABLE TO CLEAR AIRWAY WITH COUGH; HOWEVER, NON-PRODUCTIVE. REMAINS ON BIPAP 16/10; FIO2 35%, RR 18. PT'S WORK OF BREATHING HAS DEFINITELY EASED FROM EARLIER. HE REMAINS NSR WITH HR 80'S. BP'S STABLE. AFEBRILE. SCALES CATHETER REMAINS PATENT AND DRAINING CLEAR, YELLOW URINE TO GRAVITY. PER REPORT CATHETER IS CHRONIC AND CAN ONLY BE CHANGED OUT BY UROLOGY D/T DIFFICULT INSERTION. PT IS SALINE LOCKED AT THIS TIME. CALL LIGHT WITHIN REACH AND PT IS ABLE TO MAKE NEEDS KNOWN. WILL CONTINUE TO MONITOR UNTIL REPORT IS HANDED OFF TO ONCOMING RN.
--- NOTE | 2022-01-16 21:00 | NUR ---
ASSUMED CARE. AOX3, LETHARGIC AND DIFFICULT TO WAKE UP AT TIMES. STATES HE HAS NOT SLEPT MUCH AND THE MASK MAKES HIM WANT TO SLEEP. HE EXPRESSESSES COMFORTABILITY WITH IT. LS CRACKLES T/O. BIPAP [id number]/10/35%. REMOVED MASK AND DID ORAL CARE. SUCTIONED SMALL AMOUNT OF SECREATIONS. DISCUSSED GETTING SOME OUT FOR LAB ORDER. REPOSITIONED. SOME MEDS GIVEN BUT OTHERS WILL BE WITHHELD DUE TO BEING LETHARGIC. HE WAS ABLE TO HOLD SATS ON 15L HI-FLOW CANULA. CATH CARE PROVIDED. CALL LIGHT IN REACH.
--- NOTE | 2022-01-16 21:56 | NUR ---
RESP INCREASED TO 40S, SATS DROPPED DOWN INTO HIGH 80'S. HE WAS IN DISTRESS FOR SHORT PERIOD WHICH WAS RELEIVED WHEN BIPAP WAS REMOVED AND HE WAS ABLE TO COUGH UP A VERY STICKY THICK MUCUS PLUG. CURRENTLY ON NC SO HE IS ABLE TO COUGH UP MORE, SUCTION IS AT BEDSIDE. WILL SEND SPUTUM TO LAB.
--- NOTE | 2022-01-16 23:56 | NUR ---
JASPREET HAS BEEN OFF THE BIPAP FOR ALMOST 2 HOURS, HE HAS BEEN COUGHING SO MUCH THAT HIS RIBS ARE NOW SORE. HE HAS BEEN ABLE TO GET UP A LOT SECREATIONS USING THE SUCTION. WATER GIVEN. REPOSITIONED. NEW SAMPLE SENT TO LAB DUE TO CONTAMINATION OF FIRST. REPOSITIONED, BIPAP BACK ON, MEDS GIVEN, MEDICATED FOR PAIN.
--- NOTE | 2022-01-17 00:54 | NUR ---
JASPREET DID NOT TOLERATE BEING ON THE BIPAP LONG BEFORE HE WAS COUGHING ENOUGH THAT HE NEEDED IT REMOVED. RT PLACED ON HI-FLOW 50L/75. HE APPEARS TO BE TOLERATING IT. C/O ABD BEING SORE. ENCOURAGE HIM TO SLEEP SOME WHILE HE IS NO LONGER COUGHING.
--- NOTE | 2022-01-17 01:35 | NUR ---
RT CALLED DUE TO LOW VOLUME ALARM ON BIPAP. WHEN HE FALLS ALSSPE HE TENDS TO STOP BREATHING FOR A LONG PERIOD OF TIME, CAUSING SATS TO DROP. HE HAD TO PLACED BACK ON BIPAP WIHT HIGHER FIO2, PEEP AND RATE. HE IS NOW ON 18/40%. HE WAS TIREING OUT ON THE HI-FLOW. RT FIXED THE ALARM AND PLAN IS TO MONITOR. REPOSITIONED HIM OFF HIS SIDE TO SEE IF HE WILL BREATH DEEPER. WILL CONTINUE TO MONITOR.
[2022-01-17 04:06] LABS: BASOPHILS PERCENT AUTO 0 % (0-2); EOSINOPHILS PERCENT AUTO 0 % (0-6); Hematocrit 39.7 % (37.0-53.0); Hemoglobin 12.8 g/dL (13.5-17.5); IMMATURE GRAN ABSOLUTE AUTO 0.02 K/mm3 (0.00-0.10); IMMATURE GRAN PERCENT AUTO 0 % (0-1); LYMPHOCYTES ABSOLUTE AUTO 0.18 K/mm3 (0.84-5.20); LYMPHOCYTES PERCENT AUTO 3 % (21-46); MONOCYTES ABSOLUTE AUTO 0.18 K/mm3 (0.16-1.47); MONOCYTES PERCENT AUTO 3 % (4-13); Mean Corpuscular HGB 26.8 pg (26.0-34.0); Mean Corpuscular HGB Conc 32.2 g/dL (31.5-36.5); Mean Corpuscular Volume 83 fL (80-100); Mean Platelet Volume 9.4 fL (9.1-12.4); NEUTROPHILS ABSOLUTE AUTO 5.21 K/mm3 (1.96-9.15); NEUTROPHILS PERCENT AUTO 93 % (41-73); Platelet Count 196 K/mm3 (150-400); RDW Coefficient Variation 14.7 % (11.7-14.2); RDW Standard Deviation 44.6 fL (35.1-46.3); Red Blood Cell Count 4.77 M/mm3 (4.30-5.90); White Blood Cell Count 5.59 K/mm3 (4.00-11.30)
[2022-01-17 04:22] LABS: Calcium, Blood 8.9 mg/dL (8.5-10.1); Creatinine, Blood 1.78 mg/dL (0.60-1.20); Magnesium, Blood 2.5 mg/dL (1.6-2.4); Potassium, Blood 4.3 mmol/L (3.5-5.5)
[2022-01-17 05:14] LABS: PCO2 Arterial 49.1 mmHg (35-45); PO2 Arterial 70.2 mmHg (80-100); pH Blood Arterial 7.43 (7.35-7.45)
--- NOTE | 2022-01-17 05:21 | NUR ---
SHIFT SUMMARY: LS REMAIN COARSE BUT HAVE BECOME PRODUCTIVE WITH MODERATE AMOUNT OF SECRETIONS, JOSE, VERY THICK AND STICKY. PT ABLE TO USE SUCTION YANKER. HE IS ABLE TO TOLERATE 8L NC FOR ONLY A COUPLE OF HOURS BEFORE HE HAS TO GO BACK ON BIPAP DUE TO TIREING OUT. BIPAP WAS INCREASED TO 18/12/40% TONIGHT AFTER LONG COUGHING SPELLS AND SEVERAL MUCUS PLUGS. HE STATES HE DOES NOT FEEL WELL AND BREATHING AT TIMES GETS DIFFICULT AND TIGHT. ENCOURAGE WATER INTAKE TO HELP MOVE SECREATIONS. SINUS TO SINUS TACH ON MONITOR WITH HIGHEST 110'S. BP HAS BEE HYPERTENSIVE AT TIMES IN THE 150'S ON AVERAGE. THIS AM ABG STILL SHOWS ACIDOSIS. APPETITE POOR, NO BM THIS SHIFT. SCALES OUTPUT 1550. AWAITING LAB RESULTS.
--- NOTE | 2022-01-17 12:17 | NUR ---
REASSESSMENT PT TOLERATED A BREAK FROM THE BIPAP UNTIL 0930 THIS MORNING WHILE ON 6L/NC. AT THAT TIME HE STILL MAINTAINED SPO2 ABOVE 90%, BUT HE SAID HE WAS FEELING MORE SHORT OF BREATH AND ASKED TO GO BACK ON THE BIPAP. BACK OFF THE BIPAP NOW FOR LUNCH. BREATHING LOOKS LABORED STILL, BUT PT SAYS HIS WORK OF BREATHING IS ABOUT THE SAME IT HAS BEEN. LUNGS STILL HAS FAINT EXPIRATORY WHEEZES. COUGHING UP THICK WHITE/JOSE SPUTUM, SMALL AMTS. SINUS TACH IN THE LOW 100S. SBP IN THE 150S. SCALES WITH CL YELLOW OUTPUT. PT'S SO AT THE BEDSIDE AND WAS UPDATED.
--- NOTE | 2022-01-17 17:36 | NUR ---
SHIFT SUMMARY PT'S OXYGEN HAS BEEN TITRATED DOWN THROUGHOUT THE SHIFT FROM 8L TO 3L/NC AND SPO2 REMAINS 92%. EXPIRATORY WHEEZES HAVE ALSO DISAPPEARED THROUGHOUT THE SHIFT. SR TO ST WITH RATE IN THE 90-LOW 100S, BP STABLE. EATING WELL. GOOD URINE OUTPUT. PT'S CAME BY AND WAS UPDATED BY NURSING STAFF.
--- NOTE | 2022-01-17 19:24 | NUR ---
ASSUMED CARE. GIRLFRIEND IN THE ROOM WITH A FRIEND. PATIENT IS VERY HAPPY AND UPLIFTED. STATES HE FEELS MUCH BETTER. O2 IS DOWN, HE HAS BEEN ABLE TO MOVE MORE SECRETIONS T/O THE DAY. HE HAS BEEN ON BIPAP A FEW TIMES BUT MOSTLY BEEN UP AND WAKE TODAY. HE WOULD LIKE TO GET SOME SLEEP TONIGHT IF POSSIBLE. STILL NO BM NOTED. DISCUSSED BOWEL CARE. ENCOURAGED FLUIDS. CALL LIGHT IN REACH.
--- NOTE | 2022-01-18 05:43 | NUR ---
SHIFT SUMMARY: PT HAS DONE WELL T/O THE NIGHT. ATTEMPTED BIPAP ONCE BUT NOSE WAS TO CONGESTED FOR HIM TO TOLERATE IT. 3L NC ALL NIGHT WITH MAINTAINED SATS MID 90'S. CONT. TO HAVE THICK SECRETIONS THINNER THEN PREVIOUS NIGHT PER PATIENT. SLEPT OFF AND ON. BP ON AVERAGE IN THE 150'S SINUS WITH RATE IN THE 70'S. SCALES REMAINS PATENT. READY FOR CHANGE IN STATUS TODAY. CALL LIGHT IN REACH.
--- NOTE | 2022-01-18 07:15 | NUR ---
Assumed care of pt at 0715 Pt is A/O x4, on 3L NC to maintain O2 Sat > 92%. Pt did not need BIPAP overnight. Sinus Rhythm, BP stable. Diet ordered and eating well. No BM since 01/12. Chronic indwelling hinds, not changed at admit due to pt needs urology to change. Has outpt appointment next week. Skin reportedly intact iwth blanchable redness on the coccyx and scrotal redness. Has 3 PIV's, all flush well and are SL. FS AC/HS, glucose elevated due to steroids. RN to continue to monitor.
--- NOTE | 2022-01-18 19:48 | NUR ---
END OF SHIFT SUMMARY: ALERT AND ORIENTED. SINUS RHYTHM, BP STABLE. 3L NC, COARSE LUNG SOUNDS, LOOSE COUGH, SUCTIONING OWN ORAL SECRETIONS. GOOD APETITE, EATS 100% OF MEALS, BS NORMOACTIVE, NO BM IN 7 DAYS, MIRALAX PO AND DULCOLAX CT GIVEN, SMALL BM AT END OF SHIFT. SCALES DRAINING CLEAR YELLOW URINE, 2000ML UO. SKIN INTACT, DRESSING ON COCCYX FOR PROTECTION. PIV X3, SL, ALL FLUSH WELL. GIRLFRIEND TO BEDSIDE TO VISIT TODAY. UPDATED ON POC.
--- NOTE | 2022-01-19 05:38 | NUR ---
Shift summary: Neuro: A&Ox4 and follows commands. He had an uneventful night and slept well. Cardiac: SR with HR in the 60s. BP stable and denies and CP Resp: 3L NC while awake and transitioned to bipap for sleep. Crackles are appreciated throughout all lung jara. He does have a productive cough but states that he hasn't been able to clear them. GI: Pt states that he has not had a BM in a week. PRN meds given and pt had a very small BM. : Chronic hinds intact and draining clear yellow urine.
[2022-01-19 06:49] LABS: BASOPHILS PERCENT AUTO 0 % (0-2); EOSINOPHILS PERCENT AUTO 0 % (0-6); Hematocrit 41.9 % (37.0-53.0); Hemoglobin 13.8 g/dL (13.5-17.5); IMMATURE GRAN ABSOLUTE AUTO 0.02 K/mm3 (0.00-0.10); IMMATURE GRAN PERCENT AUTO 0 % (0-1); LYMPHOCYTES ABSOLUTE AUTO 0.42 K/mm3 (0.84-5.20); LYMPHOCYTES PERCENT AUTO 7 % (21-46); MONOCYTES ABSOLUTE AUTO 0.32 K/mm3 (0.16-1.47); MONOCYTES PERCENT AUTO 5 % (4-13); Mean Corpuscular HGB 26.8 pg (26.0-34.0); Mean Corpuscular HGB Conc 32.9 g/dL (31.5-36.5); Mean Corpuscular Volume 82 fL (80-100); Mean Platelet Volume 9.8 fL (9.1-12.4); NEUTROPHILS ABSOLUTE AUTO 5.64 K/mm3 (1.96-9.15); NEUTROPHILS PERCENT AUTO 88 % (41-73); Platelet Count 193 K/mm3 (150-400); RDW Coefficient Variation 14.3 % (11.7-14.2); RDW Standard Deviation 42.6 fL (35.1-46.3); Red Blood Cell Count 5.14 M/mm3 (4.30-5.90)
[2022-01-19 07:04] LABS: Bun/Creatinine Ratio 35.8 (12.0-20.0); Calcium, Blood 8.9 mg/dL (8.5-10.1); Creatinine, Blood 1.79 mg/dL (0.60-1.20)
--- NOTE | 2022-01-19 17:44 | NUR ---
SHIFT SUMMARY NEURO: ALERT AND ORIENTED X4, PLEASANT AND COOPERATIVE CARDIAC: SINUS RHYTHM, BP WNL, NO EDEMA. RESP: ROOM AIR WHILE AWAKE, BIPAP DURING SLEEP. BIPAP ORDER D/C'D, CPAP ORDER PLACED BY MD. RESPIRATORY THERAPY NOTIFIED. GI: EATING 100% OF ALL MEALS. BS HYPOACTIVE. ONLY SMALL BM 12/5 IN LAST 7 DAYS. BOWEL CARE INCLUDING MIRALAX AND SUPPOSITORIES ORDERED PRN. : CHRONIC INDWELLING SCALES DRAINING CLEAR YELLOW URINE. NOT CHANGED ON ADMISSION, TO BE CHANGED OUTPT BY UROLOGIST NEXT WEEK. SKIN: INTACT, MONITORING SKIN FOLDS IN BUTTOCKS FOR MOISTURE ISSUES. IV: PIV X2 RIGHT WRIST AND FOREARM. POWERGLIDE TO LEFT UPPER ARM. ALL FLUSH WELL. POWERGLIDE WITH GOOD BLOOD RETURN. PSYCH: DAUGHTER ZUNILDA IS CONTACT. PT ALSO HAS GF ABIMBOLA THAT VISITS DAILY. PT IS NOW MEDICAL STATUS, TO BE TRANSFERRED TO ROOM 329. REPORT CALLED TO [facility] MARTINES. PT AGREEABLE TO TRANSFER. MEDS AND CHART TO BE SENT WITH PT.
--- NOTE | 2022-01-19 18:46 | NUR ---
TRANSFER TO MEDICAL FLOOR: PT ARRIVED VIA WHEELCHAIR FROM ICU 12. PT STATED HE WANTED TO STAY IN WHEELCHAIR. HE IS A SLIDEBOARD TRANSFER. PERIPHERAL AND POWERGLIDE PATENT AND FLUSHING WELL. ANTIBIOTIC STARTED AND IS CURRENTLY RUNNING. WILL GIVE GASTROENTEROLOGIST NURSE REPORT.
--- NOTE | 2022-01-19 20:00 | NUR ---
THE PATIENT IS AN 89 YEAR-OLD MALE WITH A DIAGNOSIS OF PENUMONIA AND INFLUENZA. TRANSFERRED FROM ICU EARLIER THIS EVENING. A&OX4. PATIENT EFFECTIVELY COMMUNICATES NEEDS AND APPROPRIATELY USES CALL LIGHT. VSS. PATIENT IS SATURATING WELL ON RA. DROPLET PRECAUTIONS MAINTAINED. CHRONIC SCALES CATHETER WELL-DRAINING TO GRAVITY. PATIENT HAS COMPLAINTS OF CONSTIPATION, BUT DENIES PAIN. MIRALAX ORDERED. NORMOACTIVE BOWEL TONES THROUGHOUT ALL QUADRANTS. NO ACUTE SIGNS OR SYMPTOMS AT THIS TIME. THIS RN WILL CONTINUE TO CLOSELY MONITOR.
--- NOTE | 2022-01-19 22:41 | NUR ---
UNEMPLOYMENT INSPECTOR SUMMARY THE PATIENT IS AN 89 YEAR-OLD MALE WITH A DIAGNOSIS OF PNEUMONIA INFLUENZA. TRANSFERRED FROM ICU EARLIER THIS EVENING. A&OX4. PATIENT EFFECITVELY COMMUNICATES NEEDS AND APPROPRIATELY USES CALL LIGHT. VSS. O2 >90% ON RA. RR EVEN AND UNLABORED. BILATERAL AKA, REQUIRING SLIDE BOARD FOR TRANSFERS. PATIENT REPORTS SMALL BM AFTER RECEIVING SUPPOSITORY EARLIER THIS AFTERNOON. NORMOACTIVE BOWEL TONES THROUGHOUT. ABDOMEN SOFT AND NON-TENDER TO PALPATION. BOWEL CARE PROVIDED PER EMAR. CBG 443 THIS EVENING. PHYSICIAN NOTIFIED AND INSULIN ADMINISTERED PER EMAR. PATIENT DENIES PAIN AT THIS TIME. DRY COUGH MEDICATED PER EMAR. CHRONIC SCALES CATHETER WELL-DRAINING TO GRAVITY. NO ACUTE SIGNS OR SYMPTOMS. THIS RN WILL CONTINUE TO CLOSELY MONITOR.
--- NOTE | 2022-01-20 05:23 | NUR ---
THE PATIENT REPORTED ONSET OF SOB ~0445. HIGH-FOWLERS POSITION MAINTAINED. O2 SATURATION 97% ON RA. 2L O2 NC WAS PLACED FOR COMFORT. LS DIMINISHED IN BASES BUT OTHERWISE UNCHANGED AND NOTED TO HAVE GOOD AIR MOVEMENT. PATIENT DID REPORT SOME IMPROVEMENT POST-O2 APPLICATION. SPEAKING IN FULL SENTENCES AND ABLE TO MAINTAIN CONVERSATION. NO NASAL FLARING, RETRACTIONS, OR SIGNS OF CYANOSIS. PATIENT IS [id number]. RT NOTIFIED BY THIS RN AND A BREATHING TREATMENT WAS REQUESTED. RT AT BEDSIDE ~0525. NEBULIZER TREATMENT INITIATED. THIS RN WILL CONTINUE TO CLOSELY MONITOR.
[2022-01-20 09:03] LABS: BASOPHILS PERCENT AUTO 0 % (0-2); EOSINOPHILS PERCENT AUTO 0 % (0-6); Hematocrit 42.9 % (37.0-53.0); Hemoglobin 14.2 g/dL (13.5-17.5); IMMATURE GRAN ABSOLUTE AUTO 0.03 K/mm3 (0.00-0.10); IMMATURE GRAN PERCENT AUTO 0 % (0-1); LYMPHOCYTES ABSOLUTE AUTO 0.77 K/mm3 (0.84-5.20); LYMPHOCYTES PERCENT AUTO 11 % (21-46); MONOCYTES ABSOLUTE AUTO 0.69 K/mm3 (0.16-1.47); MONOCYTES PERCENT AUTO 9 % (4-13); Mean Corpuscular HGB 26.8 pg (26.0-34.0); Mean Corpuscular HGB Conc 33.1 g/dL (31.5-36.5); Mean Corpuscular Volume 81 fL (80-100); Mean Platelet Volume 9.9 fL (9.1-12.4); NEUTROPHILS ABSOLUTE AUTO 5.82 K/mm3 (1.96-9.15); NEUTROPHILS PERCENT AUTO 80 % (41-73); Platelet Count 175 K/mm3 (150-400); RDW Coefficient Variation 14.2 % (11.7-14.2); RDW Standard Deviation 41.6 fL (35.1-46.3); Red Blood Cell Count 5.29 M/mm3 (4.30-5.90); White Blood Cell Count 7.31 K/mm3 (4.00-11.30)
[2022-01-20 09:25] LABS: Bun/Creatinine Ratio 40.1 (12.0-20.0); Calcium, Blood 8.8 mg/dL (8.5-10.1); Creatinine, Blood 1.57 mg/dL (0.60-1.20); Potassium, Blood 3.7 mmol/L (3.5-5.5)
--- NOTE | 2022-01-20 17:21 | NUR ---
SHIFT SUMMARY PATIENT DENIES PAIN, NAUSEA, AND SHORTNESS OF BREATH. PATIENT IS A 2P SLIDEBOARD FOR TRANSFERS. PATIENT USES SLIDEBOARD AT BASELINE. PATIENT IS WHEELCHAIR BOUND AT BASELINE. PATIENT HAS BILAT BKA'S. SCALES IS INTACT AND DRAINING TO GRAVITY. UROLOGIST TO CHANGE. PATIENT HAD VISITOR THIS AFTERNOON. PATIENT ON ROOM AIR, SATURATING ABOVE 90%. PATIENT IS EATING AND DRINKING WELL. POWERGLIDE DRESSING CHANGED. PATIENT IS PLEASANT AND COOPERATIVE WITH CARE.
--- NOTE | 2022-01-21 00:38 | NUR ---
PT AWAKE DURING SHIFT REPORT, REQUESTING BED MONTES. PER SHIFT REPORT, PT HAS BEEN CONSTIPATED, REQUESTING BOWEL CARE. PT HAVING BM DURING SHIFT REPORT, AND LATER REQUESTED ORDERED BOWEL CARE WITH EVENING MEDS; GIVEN PER EMAR. CHRONIC SCALES TO GRAVITY; PATENT. PER SHIFT REPORT, SCALES CATH D/T BE CHANGED BY UROLOGY NEXT WEEK. PT WITH BL BKA'S; W/C BOUND AT BASELINE. NO C/O. RESTING QUIETLY AT THIS TIME. CALL LT IN REACH.
--- NOTE | 2022-01-21 04:39 | NUR ---
SHIFT SUMMARY: RESUMED CARE FOR THIS PT AT 0100. RESTING IN BED WITH NO CHANGES OR COMPLICATIONS. WILL CONTINUE TO MONITOR AND REPORT TO DAY NURSE.
[2022-01-21 06:43] LABS: Bun/Creatinine Ratio 38.9 (12.0-20.0); Calcium, Blood 8.9 mg/dL (8.5-10.1); Creatinine, Blood 1.62 mg/dL (0.60-1.20); Potassium, Blood 3.8 mmol/L (3.5-5.5)
[2022-01-21] MEDS ORDERED: AMLO10 PO (12:15)
[2022-01-21] MEDS ORDERED: DOCUZEN 8.6-501 EACH PO (12:16)
[2022-01-21] MEDS ORDERED: CEFP200 PO (12:20)
[2022-01-21] MEDS ORDERED: OSEL12SU2 PO (12:20)
[2022-01-21] MEDS ORDERED: MIRALAX17 GM PO (12:21)
[2022-01-21] MEDS ORDERED: GUAIFENESIN ER600 MG PO (12:22)
[2022-01-21] MEDS ORDERED: FURO40 PO (12:23)
--- NOTE | 2022-01-21 14:36 | NUR ---
DISCHARGE: [facility] REMOVED 2 IV'S FROM RIGHT FOREARM AND HAND WELL UPPER RIGHT ARM POWERGLIDE. ALL PT'S BELONGINGS SENT WITH HIM.
== END 2022-01-21 14:18 | disposition home or self-care (01) | DRG 193 ==
LOC: ER 12:32 → MEDS 12:33 → ICUW 01-16 11:12 → MEDS 01-19 18:33
PROVIDERS: Emergency Medicine; Internal Medicine; Internal Medicine Critical Care Medicine; ADMIT Family Medicine
PROC: 5A09357 Assistance with Respiratory Ventilation, Less than 24 Consecutive Hours, Continuous Positive Airway Pressure (ICD-10-PCS; principal; 2022-01-18)
DX: J18.9 Pneumonia, unspecified organism (principal); I50.23 Acute on chronic systolic (congestive) heart failure; J96.01 Acute respiratory failure with hypoxia; J96.02 Acute respiratory failure with hypercapnia; I13.0 Hypertensive heart and chronic kidney disease with heart failure and stage 1 through stage 4 chronic kidney disease, or unspecified chronic kidney disease; J44.0 Chronic obstructive pulmonary disease with (acute) lower respiratory infection; M47.16 Other spondylosis with myelopathy, lumbar region; Z20.822 Contact with and (suspected) exposure to COVID-19; Z66 Do not resuscitate; Z28.82 Immunization not carried out because of caregiver refusal; H35.30 Unspecified macular degeneration; N18.30 Chronic kidney disease, stage 3 unspecified; E11.51 Type 2 diabetes mellitus with diabetic peripheral angiopathy without gangrene; E11.22 Type 2 diabetes mellitus with diabetic chronic kidney disease; E11.40 Type 2 diabetes mellitus with diabetic neuropathy, unspecified; E78.5 Hyperlipidemia, unspecified; J10.1 Influenza due to other identified influenza virus with other respiratory manifestations; F32.A Depression, unspecified; N40.0 Benign prostatic hyperplasia without lower urinary tract symptoms; K21.9 Gastro-esophageal reflux disease without esophagitis; Z98.42 Cataract extraction status, left eye; Z89.511 Acquired absence of right leg below knee; Z89.512 Acquired absence of left leg below knee; Z90.89 Acquired absence of other organs; Z98.890 Other specified postprocedural states; Z87.891 Personal history of nicotine dependence; Z79.4 Long term (current) use of insulin; Z79.899 Other long term (current) drug therapy
CPT/HCPCS: 0241U; 36415; 36600; 71045; 80048; 80053; 80069; 82330; 82803; 82947; 83036; 83735; 83880; 84100; 84484; 85025; 87070; 87077; 87186; 87205; 93005; 93010; 93306; 94640; 94660; 94664; 94760; 94762; 96365; 96375; 97110; 97162; 97165; 97530; 99285-25; A9270; C1751; G0378; J0456; J0696; J1650; J1815; J1940; J2930; J7050; J7512

== ENCOUNTER → 2022-05-03 | Outpatient (CLI) | payer OTHER ==
[~2022-05-03] MED LIST changes: +AMLO10 PO; +ATENOLOL25 MG PO; +CEFP200 PO; +Cipro250 MG PO; +DOCUZEN 8.6-501 EACH PO; +FLOMAX0.4 MG PO; +FURO40 PO; +GUAIFENESIN ER600 MG PO; +Keflex250 MG PO; +OMEP20ER PO; +OSEL12SU2 PO; +Potassium Chlo20 ME1 PO; +Prinivil10 MG PO; +Ropinirole HCl5 MG PO; +TRAZ50 PO; +Ventolin/Proventil INH
[2022-05-03 19:20] LABS: Bilirubin, Urine Neg (Neg); Blood, Urine 2+ (Neg); Glucose Qualitative, Urine Neg (Neg); Ketones, Urine Neg (Neg); Leukocyte Esterase, Urine 3+ (Neg); Nitrite, Urine Neg (Neg); Protein, Urine Neg (Neg); Urobilinogen, Urine NORM (Normal)
[2022-05-03 19:31] LABS: Appearance, Urine Clear (Clear); Color, Urine Pale Yellow (P-Yellow)
[2022-05-03 19:32] LABS: Bacteria Mod /hpf; Red Blood Cells, Urine 0-2 /hpf (0-2); Squamous Epithelial Cells Not Seen /hpf (Few)
== END | disposition home or self-care (01) ==
LOC: LAB SHORT 15:45 → LAB 15:45
PROVIDERS: Physician Assistant
DX: N39.0 Urinary tract infection, site not specified (principal)
CPT/HCPCS: 81001

== ENCOUNTER → 2022-05-25 | Outpatient (CLI) | payer OTHER ==
[2022-05-25 16:01] LABS: Appearance, Urine Hazy (Clear); Bilirubin, Urine Neg (Neg); Blood, Urine 2+ (Neg); Color, Urine Yellow (P-Yellow); Glucose Qualitative, Urine Neg (Neg); Ketones, Urine Neg (Neg); Leukocyte Esterase, Urine 3+ (Neg); Nitrite, Urine Neg (Neg); Protein, Urine 2+ (Neg); Specific Gravity, Urine 1.015 (1.003-1.022); Urobilinogen, Urine NORM (Normal)
[2022-05-25 16:20] LABS: White Blood Cells, Urine TNTC /hpf (0-5); Yeast/Fungi Urine Few /hpf
[2022-05-25 16:21] LABS: Bacteria Few /hpf; Squamous Epithelial Cells Few /hpf (Few)
== END | disposition home or self-care (01) ==
LOC: LAB SHORT 12:00
PROVIDERS: Physician Assistant
DX: N39.0 Urinary tract infection, site not specified (principal)
CPT/HCPCS: 81001; 87086

== ENCOUNTER 2022-05-31 20:15 | Inpatient (IN) | payer OTHER ==
[~2022-05-31] VITALS: Ht 157.5 cm; Wt 91.8 kg
[~2022-05-31 20:15] MED LIST changes: +ALLO100 PO; -Allopurinol100 MG PO
[2022-05-31] MEDS ORDERED: CARV6.25 PO (20:35)
[2022-05-31] MEDS ORDERED: ENTRESTO 24 MG1 EACH PO ×2 (20:36→20:38)
[2022-05-31] MEDS ORDERED: FLUC100 PO (20:39)
[2022-05-31] MEDS ORDERED: SPIR25 PO (20:45)
[2022-05-31 22:01] LABS: BASOPHILS ABSOLUTE AUTO 0.05 K/mm3 (0.00-0.23); BASOPHILS PERCENT AUTO 1 % (0-2); EOSINOPHILS ABSOLUTE AUTO 0.51 K/mm3 (0.00-0.68); EOSINOPHILS PERCENT AUTO 6 % (0-6); Hematocrit 34.2 % (37.0-53.0); Hemoglobin 11.3 g/dL (13.5-17.5); IMMATURE GRAN ABSOLUTE AUTO 0.03 K/mm3 (0.00-0.10); IMMATURE GRAN PERCENT AUTO 0 % (0-1); LYMPHOCYTES ABSOLUTE AUTO 0.78 K/mm3 (0.84-5.20); LYMPHOCYTES PERCENT AUTO 10 % (21-46); MONOCYTES ABSOLUTE AUTO 0.83 K/mm3 (0.16-1.47); MONOCYTES PERCENT AUTO 10 % (4-13); Mean Corpuscular Volume 85 fL (80-100); Mean Platelet Volume 9.2 fL (9.1-12.4); NEUTROPHILS ABSOLUTE AUTO 6.04 K/mm3 (1.96-9.15); NEUTROPHILS PERCENT AUTO 73 % (41-73); Platelet Count 214 K/mm3 (150-400); RDW Coefficient Variation 14.8 % (11.7-14.2); RDW Standard Deviation 45.1 fL (35.1-46.3); Red Blood Cell Count 4.04 M/mm3 (4.30-5.90); White Blood Cell Count 8.24 K/mm3 (4.00-11.30)
[2022-05-31 22:20] LABS: Albumin/Globulin Ratio 0.7 (0.8-1.8); Bilirubin, Total 0.3 mg/dL (0.1-1.0); Bun/Creatinine Ratio 25.5 (12.0-20.0); Calcium, Blood 8.5 mg/dL (8.5-10.1); Creatinine, Blood 2.43 mg/dL (0.60-1.20); Globulin, Blood 4.3 g/dL (2.2-4.0); Potassium, Blood 5.3 mmol/L (3.5-5.5); Total Protein, Blood 7.3 g/dL (6.4-8.2)
[2022-05-31 23:48] LABS: Source, Urine Foley catheter
[2022-06-01] VITALS (30 sets, daily range): BP systolic 98–162; BP diastolic 40–70
[2022-06-01 00:11] LABS: Bilirubin, Urine Neg (Neg); Blood, Urine 5+ (Neg); Glucose Qualitative, Urine Neg (Neg); Ketones, Urine Neg (Neg); Leukocyte Esterase, Urine 2+ (Neg); Nitrite, Urine Neg (Neg); Protein, Urine 2+ (Neg); Specific Gravity, Urine 1.015 (1.003-1.022); Urobilinogen, Urine NORM (Normal)
[2022-06-01 00:38] LABS: Appearance, Urine Hazy (Clear); Color, Urine Yellow (P-Yellow)
[2022-06-01 00:39] LABS: Red Blood Cells, Urine 25-50 /hpf (0-2); Squamous Epithelial Cells Rare /hpf (Few)
[2022-06-01 00:40] LABS: Bacteria Mod /hpf
[2022-06-01 02:22] LABS: BASOPHILS ABSOLUTE AUTO 0.05 K/mm3 (0.00-0.23); BASOPHILS PERCENT AUTO 1 % (0-2); EOSINOPHILS ABSOLUTE AUTO 0.48 K/mm3 (0.00-0.68); EOSINOPHILS PERCENT AUTO 7 % (0-6); Hematocrit 32.4 % (37.0-53.0); Hemoglobin 10.5 g/dL (13.5-17.5); IMMATURE GRAN ABSOLUTE AUTO 0.03 K/mm3 (0.00-0.10); IMMATURE GRAN PERCENT AUTO 0 % (0-1); LYMPHOCYTES ABSOLUTE AUTO 0.87 K/mm3 (0.84-5.20); LYMPHOCYTES PERCENT AUTO 12 % (21-46); MONOCYTES ABSOLUTE AUTO 0.73 K/mm3 (0.16-1.47); MONOCYTES PERCENT AUTO 10 % (4-13); Mean Corpuscular HGB 27.8 pg (26.0-34.0); Mean Corpuscular HGB Conc 32.4 g/dL (31.5-36.5); Mean Corpuscular Volume 86 fL (80-100); Mean Platelet Volume 9.3 fL (9.1-12.4); NEUTROPHILS ABSOLUTE AUTO 4.85 K/mm3 (1.96-9.15); NEUTROPHILS PERCENT AUTO 69 % (41-73); Platelet Count 196 K/mm3 (150-400); RDW Standard Deviation 46.9 fL (35.1-46.3); Red Blood Cell Count 3.78 M/mm3 (4.30-5.90); White Blood Cell Count 7.01 K/mm3 (4.00-11.30)
[2022-06-01] MEDS ORDERED: AMOX500 PO (02:58)
[2022-06-01] MEDS ORDERED: ZYRTEC10 M2 PO (03:01)
[2022-06-01] MEDS ORDERED: CIPR250 PO (03:02)
[2022-06-01] MEDS ORDERED: ENTRESTO 24 MG1 EACH PO (03:02)
[2022-06-01 03:05] LABS: Base Excess Venous -2.8 mmol/L; Bicarbonate Venous 22.1 mmol/L (24.0-30.0); PCO2 Venous 43.1 mmHg (38-42); pH Blood Venous 7.34 (7.34-7.37)
[2022-06-01] MEDS ORDERED: Preservision S1 EACH PO (03:05)
[2022-06-01 03:15] LABS: Albumin, Blood 2.6 g/dL (3.4-5.0); Albumin/Globulin Ratio 0.7 (0.8-1.8); Bilirubin, Total 0.2 mg/dL (0.1-1.0); Bun/Creatinine Ratio 25.6 (12.0-20.0); Calcium, Blood 7.6 mg/dL (8.5-10.1); Creatinine, Blood 2.19 mg/dL (0.60-1.20); Globulin, Blood 3.9 g/dL (2.2-4.0); Magnesium, Blood 2.3 mg/dL (1.6-2.4); Potassium, Blood 4.6 mmol/L (3.5-5.5); Total Protein, Blood 6.5 g/dL (6.4-8.2)
--- NOTE | 2022-06-01 03:42 | NUR ---
Patient arrived to unit at 0128. A/O to self only, very lethargic and can be difficult to arouse. SB on tele 50's. 1 large pasty brown BM. BP began to decrease with MAPs in high 50's-low 60's. Physician contacted and came to see patient. Order to stop continuous fluids as patient sounds coarse t/o after a 250ml bolus. After 250ml bolus, MAP at 65. Physician would like patient transferred to ICU for pressors if MAP falls below 60.
[2022-06-01 04:11] LABS: Adenovirus Not Detected (NOT DETECT); Bordetella pertussis Not Detected (NOT DETECT); Chlamydophila pneumoniae Not Detected (NOT DETECT); Coronavirus 229E Not Detected (NOT DETECT); Coronavirus HKU1 Not Detected (NOT DETECT); Coronavirus NL63 Not Detected (NOT DETECT); Coronavirus OC43 Not Detected (NOT DETECT); Human Metapneumovirus Not Detected (NOT DETECT); Human Rhinovirus/Enterovirus Not Detected (NOT DETECT); Influenza A/2009-H1 Not Detected (NOT DETECT); Influenza A/H1 Not Detected (NOT DETECT); Influenza A/H3 Not Detected (NOT DETECT); Influenza B Not Detected (NOT DETECT); Mycoplasma pneumoniae Not Detected (NOT DETECT); Parainfluenza Virus 1 Not Detected (NOT DETECT); Parainfluenza Virus 2 Not Detected (NOT DETECT); Parainfluenza Virus 3 Not Detected (NOT DETECT); Parainfluenza Virus 4 Not Detected (NOT DETECT); Respiratory Syncytial Virus Not Detected (NOT DETECT); SARS-Cov-2 (COVID-19), BioFire Not Detected (NOT DETECT)
--- NOTE | 2022-06-01 05:36 | NUR ---
Assumed care of pt at 0128 as an ER admit. Patient very lethargic, responds to verbal stimuli but quickly falls back asleep. Oriented to self only. Weak extremities. B/l BKA's. Maintains over 92% on 3L NC, LS coarse t/o with a moist nonproductive cough. Oral care q4. SB on tele 40-50's. See previous RN note regarding BP. BLE 1+ edema in thigh region. Moderate abdominal distention with hyperactive bowel tones x4 and 1 episode of large amount of pasty brown diarrhea. Chronic hinds was changed out in ER and urine sent. Patient see's urology for this d/t retention. L inner buttock pressure wound, about a quarter in size. Photo in chart, cleaned and bandaged. Will report to dayshift RN.
[2022-06-02 04:01] VITALS: BP 132/49
[2022-06-02 04:03] LABS: BASOPHILS ABSOLUTE AUTO 0.06 K/mm3 (0.00-0.23); BASOPHILS PERCENT AUTO 1 % (0-2); EOSINOPHILS ABSOLUTE AUTO 0.46 K/mm3 (0.00-0.68); EOSINOPHILS PERCENT AUTO 4 % (0-6); Hematocrit 37.4 % (37.0-53.0); Hemoglobin 12.3 g/dL (13.5-17.5); IMMATURE GRAN ABSOLUTE AUTO 0.03 K/mm3 (0.00-0.10); IMMATURE GRAN PERCENT AUTO 0 % (0-1); LYMPHOCYTES ABSOLUTE AUTO 0.75 K/mm3 (0.84-5.20); LYMPHOCYTES PERCENT AUTO 7 % (21-46); MONOCYTES ABSOLUTE AUTO 0.79 K/mm3 (0.16-1.47); MONOCYTES PERCENT AUTO 8 % (4-13); Mean Corpuscular HGB Conc 32.9 g/dL (31.5-36.5); Mean Corpuscular Volume 85 fL (80-100); Mean Platelet Volume 9.5 fL (9.1-12.4); NEUTROPHILS ABSOLUTE AUTO 8.41 K/mm3 (1.96-9.15); NEUTROPHILS PERCENT AUTO 80 % (41-73); Platelet Count 225 K/mm3 (150-400); RDW Coefficient Variation 14.7 % (11.7-14.2); RDW Standard Deviation 45.6 fL (35.1-46.3)
[2022-06-02 04:21] LABS: Anion Gap 1 mmol/L (6-16); Blood Urea Nitrogen 51 mg/dL (8-24); Bun/Creatinine Ratio 26.3 (12.0-20.0); CO2, Blood 24 mmol/L (21-32); Calcium, Blood 8.8 mg/dL (8.5-10.1); Chloride, Blood 105 mmol/L (98-108); Creatinine, Blood 1.94 mg/dL (0.60-1.20); Glomerular Filtration Rate 32 (60-); Glucose, Blood 145 mg/dL (70-99); Magnesium, Blood 2.3 mg/dL (1.6-2.4); Phosphorus, Blood 3.3 mg/dL (2.5-4.9); Potassium, Blood 5.5 mmol/L (3.5-5.5); Sodium, Blood 130 mmol/L (136-145)
--- NOTE | 2022-06-02 06:55 | NUR ---
SHIFT SUMMARY PATIENT ALERT AND ORIENTED X4. HE HAS OCCASIONAL FORGETFULNESS AND REQUIRES SOME REPEATED TEACHING. VITAL SIGNS STABLE. PATIENT SPENT MUCH OF THE NIGHT COUGHING, THICK JOSE SPUTUM PRODUCED. MEDICATED PER EMAR FOR COUGH. CONTINUES ON 4 LITERS O2 VIA NC, SATING 95%. NO ACUTE ISSUES NOTED OVERNIGHT. CALL LIGHT WITHIN REACH.
--- NOTE | 2022-06-02 07:00 | NUR ---
ASSUMPTION OF CARE PT RESTING WITH EYES CLOSED AND WAKENS TO VERBAL STIMULI. PT ON 4L NC WITH SPO2 >94%. PT C/O 04/23 COCCYX/HIP PAIN. PT REPOSITIONED FOR COMFORT. BED IN LOW POSITION, CALL LIGHT WITHIN REACH.
[2022-06-02 08:23] VITALS: BP 131/56
[2022-06-02 11:45] VITALS: BP 134/53
[2022-06-02 15:25] VITALS: BP 130/54
--- NOTE | 2022-06-02 17:15 | NUR ---
SHIFT SUMMARY PT IN PLEASANT MOOD TODAY. A&OX4 BUT FORGETFUL AT TIMES. TITRATED DOWN TO 2L NC, LUNGH SOUNDS ARE COURSE WITH CRACKLES IN LOWER LOBES, PT STILL RECIEVING RESPIRATORY TREATMENTS AND HAS PRODUCTIVE COUGH. USES SUCTION INDEPENDENTLY. UP TO CHAIR TODAY WITH PT. POTENTIAL D/C TOMORROW
[2022-06-02 20:57] VITALS: BP 132/54
[2022-06-02 23:45] VITALS: BP 154/60
[2022-06-03 04:06] VITALS: BP 143/57
--- NOTE | 2022-06-03 06:25 | NUR ---
SHIFT SUMMARY PATIENT ALERT AND ORIENTED X4. PATIENT'S COUGH SOUNDED MORE DRY AND LESS CONGESTED OVERNIGHT, PRODUCING LESS SPUTUM. AT HS PATIENT RECEIVED A BREATHING TREATMENT PER RT AND TRAZODONE FOR SLEEP. PATIENT WAS ABLE TO REST MOST OF THE NIGHT WITH COUGHING SPELLS GREATLY REDUCED. PATIENT DENIES CHEST PAIN, VITAL SIGNS STABLE. NO ACUTE ISSUES NOTED OVERNIGHT. CALL LIGHT WITHIN REACH.
[2022-06-03 07:49] VITALS: BP 120/54
[2022-06-03 13:42] VITALS: BP 118/51
[2022-06-03 16:54] VITALS: BP 118/53
[2022-06-03] MEDS ORDERED: AMOCLA500 PO (18:45)
--- NOTE | 2022-06-03 18:45 | NUR ---
DISCHARGE SUMMARY ALERT WHEN AWAKE. TAKES FREQUENT NAPS. SOMETIMES CONFUSED. REQUIRES 2L O2 VIA NC TO KEEP SATS ABOVE 92%. LS COARSE AND DIM IN BASES. COUGH IMPROVED. TOLERATING ADA DIET AND LIQUIDS. VOIDING WELL WITH CHRONIC INDWELLING SCALES. ORAL ABX. HOME O2 EVAL COMPLETED, REQUIRES 2L O2 VIA NC. [facility]. DISCHARGE ORDER PLACED BY DR GO. MEDICAL TRANSPORT ARRANGED FOR 7 PM. IV'S DC'D WNL. PATIENT DRESSED AND PORTABLE OXYGEN PLACED.
[2022-06-03] MEDS ORDERED: AZIT250 PO (18:46)
[2022-06-03] MEDS ORDERED: LACT PO (18:47)
== END 2022-06-03 20:31 | disposition home or self-care (01) | DRG 871 ==
LOC: ER 20:15 → ERHOLD 06-01 00:05 → PCU 06-01 00:05
PROVIDERS: Family Medicine; Student in an Organized Health Care Education/Training Program; ADMIT Student in an Organized Health Care Education/Training Program
PROC: 3E03329 Introduction of Other Anti-infective into Peripheral Vein, Percutaneous Approach (ICD-10-PCS; principal; 2022-06-01)
PROC: 0T2BX0Z Change Drainage Device in Bladder, External Approach (ICD-10-PCS; 2022-06-01)
DX: A41.9 Sepsis, unspecified organism (principal); J18.9 Pneumonia, unspecified organism; J96.01 Acute respiratory failure with hypoxia; I13.0 Hypertensive heart and chronic kidney disease with heart failure and stage 1 through stage 4 chronic kidney disease, or unspecified chronic kidney disease; N18.30 Chronic kidney disease, stage 3 unspecified; E11.22 Type 2 diabetes mellitus with diabetic chronic kidney disease; Z66 Do not resuscitate; E11.51 Type 2 diabetes mellitus with diabetic peripheral angiopathy without gangrene; H35.30 Unspecified macular degeneration; E11.42 Type 2 diabetes mellitus with diabetic polyneuropathy; I50.9 Heart failure, unspecified; L98.419 Non-pressure chronic ulcer of buttock with unspecified severity; Z20.822 Contact with and (suspected) exposure to COVID-19; Z89.512 Acquired absence of left leg below knee; Z89.511 Acquired absence of right leg below knee; Z86.19 Personal history of other infectious and parasitic diseases; Z79.899 Other long term (current) drug therapy; Z79.2 Long term (current) use of antibiotics; Z79.51 Long term (current) use of inhaled steroids; Z79.52 Long term (current) use of systemic steroids; Z79.4 Long term (current) use of insulin; Z79.891 Long term (current) use of opiate analgesic; Z79.01 Long term (current) use of anticoagulants; Z98.890 Other specified postprocedural states
CPT/HCPCS: 0202U; 36415; 51702; 71046; 80053; 80069; 81001; 82803; 82947; 83605; 83735; 83880; 84484; 85025; 87040; 87086; 93005; 93010; 94640; 94664; 94760; 94761; 94762; 96361-59; 96365-59; 96375-59; 97162; 97166; 97530; 99285-25; A9270; J0456; J0696; J1644; J1815; J7030; J7050

== ENCOUNTER → 2022-06-05 | Outpatient (CLI) | payer OTHER ==
[~2022-06-05] MED LIST changes: +AMOCLA500 PO; +AMOX500 PO; +AZIT250 PO; +CARV6.25 PO; +CIPR250 PO; +ENTRESTO 24 MG1 EACH PO; +FLUC100 PO; +Preservision S1 EACH PO; +SPIR25 PO
[2022-06-05 16:24] LABS: BASOPHILS ABSOLUTE AUTO 0.07 K/mm3 (0.00-0.23); BASOPHILS PERCENT AUTO 1 % (0-2); EOSINOPHILS ABSOLUTE AUTO 0.72 K/mm3 (0.00-0.68); EOSINOPHILS PERCENT AUTO 10 % (0-6); Hemoglobin 12.8 g/dL (13.5-17.5); IMMATURE GRAN ABSOLUTE AUTO 0.05 K/mm3 (0.00-0.10); IMMATURE GRAN PERCENT AUTO 1 % (0-1); LYMPHOCYTES PERCENT AUTO 14 % (21-46); MONOCYTES ABSOLUTE AUTO 0.62 K/mm3 (0.16-1.47); MONOCYTES PERCENT AUTO 9 % (4-13); Mean Corpuscular HGB 27.9 pg (26.0-34.0); Mean Corpuscular HGB Conc 33.7 g/dL (31.5-36.5); Mean Corpuscular Volume 83 fL (80-100); Mean Platelet Volume 9.1 fL (9.1-12.4); NEUTROPHILS ABSOLUTE AUTO 4.63 K/mm3 (1.96-9.15); NEUTROPHILS PERCENT AUTO 65 % (41-73); Platelet Count 267 K/mm3 (150-400); RDW Coefficient Variation 14.8 % (11.7-14.2); RDW Standard Deviation 44.8 fL (35.1-46.3); Red Blood Cell Count 4.58 M/mm3 (4.30-5.90); White Blood Cell Count 7.09 K/mm3 (4.00-11.30)
[2022-06-05 16:32] LABS: Albumin, Blood 3.3 g/dL (3.4-5.0); Albumin/Globulin Ratio 0.7 (0.8-1.8); Bilirubin, Total 0.3 mg/dL (0.1-1.0); Bun/Creatinine Ratio 27.4 (12.0-20.0); Calcium, Blood 9.1 mg/dL (8.5-10.1); Creatinine, Blood 2.19 mg/dL (0.60-1.20); Globulin, Blood 4.9 g/dL (2.2-4.0); Potassium, Blood 5.8 mmol/L (3.5-5.5); Total Protein, Blood 8.2 g/dL (6.4-8.2)
== END | disposition home or self-care (01) ==
LOC: LAB SHORT 16:16
PROVIDERS: Emergency Medicine
DX: R10.9 Unspecified abdominal pain (principal)
CPT/HCPCS: 80053; 83690; 85025

== ENCOUNTER → 2022-07-12 | Outpatient (CLI) | payer OTHER ==
[2022-07-13 11:26] LABS: Protein, Urine Quantitative 10.9 mg/dL (0.0-11.9)
== END | disposition home or self-care (01) ==
LOC: LAB SHORT 10:30
PROVIDERS: Internal Medicine Nephrology
DX: N18.30 Chronic kidney disease, stage 3 unspecified (principal); D63.1 Anemia in chronic kidney disease
CPT/HCPCS: 81050; 84156

== ENCOUNTER 2022-07-22 15:21 | Inpatient (IN) | payer OTHER ==
[~2022-07-22] VITALS: Ht 172.7 cm; Wt 88.8 kg
[2022-07-22 15:51] LABS: Source, Urine Foley catheter
[2022-07-22 15:55] LABS: BASOPHILS ABSOLUTE AUTO 0.04 K/mm3 (0.00-0.23); BASOPHILS PERCENT AUTO 0 % (0-2); EOSINOPHILS ABSOLUTE AUTO 0.36 K/mm3 (0.00-0.68); EOSINOPHILS PERCENT AUTO 3 % (0-6); Hematocrit 28.5 % (37.0-53.0); Hemoglobin 9.4 g/dL (13.5-17.5); IMMATURE GRAN PERCENT AUTO 1 % (0-1); LYMPHOCYTES ABSOLUTE AUTO 0.94 K/mm3 (0.84-5.20); LYMPHOCYTES PERCENT AUTO 7 % (21-46); MONOCYTES ABSOLUTE AUTO 0.88 K/mm3 (0.16-1.47); MONOCYTES PERCENT AUTO 7 % (4-13); Mean Corpuscular HGB 28.6 pg (26.0-34.0); Mean Corpuscular Volume 87 fL (80-100); Mean Platelet Volume 8.9 fL (9.1-12.4); NEUTROPHILS ABSOLUTE AUTO 10.89 K/mm3 (1.96-9.15); NEUTROPHILS PERCENT AUTO 82 % (41-73); Platelet Count 301 K/mm3 (150-400); RDW Coefficient Variation 14.5 % (11.7-14.2); RDW Standard Deviation 45.9 fL (35.1-46.3); Red Blood Cell Count 3.29 M/mm3 (4.30-5.90); White Blood Cell Count 13.21 K/mm3 (4.00-11.30)
[2022-07-22 15:59] LABS: Appearance, Urine Hazy (Clear); Bilirubin, Urine Neg (Neg); Blood, Urine 4+ (Neg); Glucose Qualitative, Urine Neg (Neg); Ketones, Urine Neg (Neg); Leukocyte Esterase, Urine 1+ (Neg); Nitrite, Urine Neg (Neg); Protein, Urine 1+ (Neg); Urobilinogen, Urine NORM (Normal)
[2022-07-22 16:13] LABS: Albumin, Blood 2.7 g/dL (3.4-5.0); Albumin/Globulin Ratio 0.6 (0.8-1.8); Bilirubin, Total 0.2 mg/dL (0.1-1.0); Bun/Creatinine Ratio 29.8 (12.0-20.0); Calcium, Blood 8.6 mg/dL (8.5-10.1); Creatinine, Blood 2.42 mg/dL (0.60-1.20); Globulin, Blood 4.7 g/dL (2.2-4.0); Potassium, Blood 5.3 mmol/L (3.5-5.5); Total Protein, Blood 7.4 g/dL (6.4-8.2)
[2022-07-22 16:35] LABS: Color, Urine Pale Yellow (P-Yellow)
[2022-07-22 16:37] LABS: Amorphous Mod (0-Heavy); Bacteria Many /hpf; Mucus Light (0-Heavy); Squamous Epithelial Cells Rare /hpf (Few)
[2022-07-22 18:51] VITALS: BP 130/59
[2022-07-22] MEDS ORDERED: Prinivil10 MG PO (19:04)
--- NOTE | 2022-07-23 03:04 | NUR ---
SHIFT SUMMERY, PT HAVING INTERMITANT SLEEP. PT AWOKE EALIER AND STATED HE DID NOT KNOW WHY HE WAS HERE, NO ONE TALKED TO HIM AND TOLD HIM WHY HE WAS SENT HERE, PT THOUHT HE WAS IN [place] BUT SEENED GLAD TO FIN OUT HE WAS CLOSE TO HOME. HE SAID HE HAD TOLD HIS DAUGHTER HE WAS IN TROUBLE AND SHE CALLED 911. PT ALERT AND ABLE TO USES CALL LIGHT FOR NEEDS AND CONCERNS.
[2022-07-23 03:51] VITALS: BP 151/74
[2022-07-23 04:21] VITALS: BP 141/67
[2022-07-23 06:21] LABS: BASOPHILS ABSOLUTE AUTO 0.04 K/mm3 (0.00-0.23); BASOPHILS PERCENT AUTO 0 % (0-2); EOSINOPHILS ABSOLUTE AUTO 0.27 K/mm3 (0.00-0.68); EOSINOPHILS PERCENT AUTO 2 % (0-6); Hematocrit 32.3 % (37.0-53.0); Hemoglobin 10.7 g/dL (13.5-17.5); IMMATURE GRAN PERCENT AUTO 1 % (0-1); LYMPHOCYTES ABSOLUTE AUTO 0.78 K/mm3 (0.84-5.20); LYMPHOCYTES PERCENT AUTO 5 % (21-46); MONOCYTES ABSOLUTE AUTO 0.81 K/mm3 (0.16-1.47); MONOCYTES PERCENT AUTO 5 % (4-13); Mean Corpuscular HGB 28.5 pg (26.0-34.0); Mean Corpuscular HGB Conc 33.1 g/dL (31.5-36.5); Mean Corpuscular Volume 86 fL (80-100); Mean Platelet Volume 8.9 fL (9.1-12.4); NEUTROPHILS ABSOLUTE AUTO 13.89 K/mm3 (1.96-9.15); NEUTROPHILS PERCENT AUTO 87 % (41-73); Platelet Count 316 K/mm3 (150-400); RDW Coefficient Variation 14.5 % (11.7-14.2); RDW Standard Deviation 44.7 fL (35.1-46.3); Red Blood Cell Count 3.75 M/mm3 (4.30-5.90); White Blood Cell Count 15.89 K/mm3 (4.00-11.30)
[2022-07-23 06:44] LABS: Albumin, Blood 2.9 g/dL (3.4-5.0); Albumin/Globulin Ratio 0.6 (0.8-1.8); Bilirubin, Total 0.3 mg/dL (0.1-1.0); Bun/Creatinine Ratio 30.4 (12.0-20.0); Calcium, Blood 8.7 mg/dL (8.5-10.1); Creatinine, Blood 2.24 mg/dL (0.60-1.20); Globulin, Blood 4.8 g/dL (2.2-4.0); Magnesium, Blood 2.7 mg/dL (1.6-2.4); Potassium, Blood 5.3 mmol/L (3.5-5.5); Total Protein, Blood 7.7 g/dL (6.4-8.2)
[2022-07-23 07:27] VITALS: BP 139/44
--- NOTE | 2022-07-23 09:42 | NUR ---
Pt. is awake in bed and welcomes my visit. Pt. is pleasant but a little unsettled about the delay in treatment. Pt. verbalized expectation that antibiotics would be beginning soon. Listen with empathy and a calming presence. Pt. displays evidence of trust, and rapport is established. As I facilitated a life review and prayed with the Pt. Family arrived. Pt. and family verbalized gratitude for the spiritual care visit.
[2022-07-23 15:21] VITALS: BP 111/51
[2022-07-23 18:26] VITALS: BP 132/56
--- NOTE | 2022-07-23 19:24 | NUR ---
SHIFT SUMMARY PT A&OX3-4 AND PLESANT. MEPALEX DRESSING ON LEFT BUTTOCKS CHANGED TWICE TODAY D/T SOIL FROM STOOL. SCALES CATHETER NOT CHANGED TODAY D/T UROLOGY SEEING PT TO DO SCALES CHANGES. CALLS MADE TO [facility] WITHOUT SUCCESS FOR REASON PT WAS BEING SEEN BY UROLOGIST. MORE DETAILED NOTE IN BLADDER MANAGMENT. DAUGHTERS AT BEDSIDE IN AFTERNOON. PT ON CONTINUOS PULSE OX. O2 SATS DROPPING TO LOW 80'S AT TIMES. OXYGEN TURNED UP TO 3L AND O2 SATS REMAINING >95%. BED IN LOWEST POSITION AND CALL LIGHT IN REACH.
[2022-07-23 20:13] VITALS: BP 112/48
[2022-07-24] VITALS (8 sets, daily range): BP systolic 91–124; BP diastolic 40–67
--- NOTE | 2022-07-24 03:37 | NUR ---
shift summery, pt resting in bed. pt seemes to be sleeping comfortably . call light in reach. hinds cath draingin stanislaw urine.
[2022-07-24 05:10] LABS: BASOPHILS ABSOLUTE AUTO 0.06 K/mm3 (0.00-0.23); BASOPHILS PERCENT AUTO 0 % (0-2); EOSINOPHILS ABSOLUTE AUTO 0.26 K/mm3 (0.00-0.68); EOSINOPHILS PERCENT AUTO 1 % (0-6); Hematocrit 28.9 % (37.0-53.0); Hemoglobin 9.5 g/dL (13.5-17.5); IMMATURE GRAN ABSOLUTE AUTO 0.14 K/mm3 (0.00-0.10); IMMATURE GRAN PERCENT AUTO 1 % (0-1); LYMPHOCYTES ABSOLUTE AUTO 1.29 K/mm3 (0.84-5.20); LYMPHOCYTES PERCENT AUTO 7 % (21-46); MONOCYTES ABSOLUTE AUTO 1.39 K/mm3 (0.16-1.47); MONOCYTES PERCENT AUTO 7 % (4-13); Mean Corpuscular HGB 28.2 pg (26.0-34.0); Mean Corpuscular HGB Conc 32.9 g/dL (31.5-36.5); Mean Corpuscular Volume 86 fL (80-100); Mean Platelet Volume 9.2 fL (9.1-12.4); NEUTROPHILS PERCENT AUTO 84 % (41-73); Platelet Count 274 K/mm3 (150-400); RDW Coefficient Variation 14.5 % (11.7-14.2); RDW Standard Deviation 44.7 fL (35.1-46.3); Red Blood Cell Count 3.37 M/mm3 (4.30-5.90); White Blood Cell Count 19.64 K/mm3 (4.00-11.30)
[2022-07-24 05:32] LABS: Bun/Creatinine Ratio 26.1 (12.0-20.0); Calcium, Blood 8.1 mg/dL (8.5-10.1); Creatinine, Blood 2.57 mg/dL (0.60-1.20)
--- NOTE | 2022-07-24 14:45 | NUR ---
DR. IVERA NOTIFIED PT HYPOTENSIVE, 500 ML BOLUS ORDERED, MED ADJUST, OCCULT POSITIVE IN ER. SCALES REMOVED, PLAN TO STRAIGHT CATH FOR GREATER THAN 600-CONSULT [facility] FOR SUPRAPUBIC CATH PLACEMENT IF NEEDED. PT STATES FEELING OF IMPENDING DOOM AND SOB REQUESTING MUCINEX. PLANS TO ORDER.
--- NOTE | 2022-07-24 17:03 | NUR ---
SHIFT SUMMARY PT A&OX4 AND IN PLEASENT MOOD T/O SHIFT. HYPOTENSION NOTED-SEE NOTE. TOLERATING PO INTAKE WELL. VISITOR IN TO SEE PT T/O VISITING HOURS. CALL LIGHT W/IN JOYCELYN. YORDY REMOVED THIS SHIFT-AKIL PEE IN PLACE TO PROMOTE DRYNESS FOR WOUND HEALING. TELE IN PLACE, VSS.
--- NOTE | 2022-07-24 21:05 | NUR ---
BLOOD PRESSURE-HYPOTENSIVE PT HAS BEEN HYPOTENSIVE THIS SHIFT AND DAYSHIFT, PT RECEIVED 500 CC BOLUS EARLIER IN THE DAY. BP THIS EVENING AT SHIFT CHANGE WAS 94/42, WITH A MAP OF 59. PT HAS PMH OF CHF, AND IS IN ACUTE RENAL FAILURE. PT CALLED AND NOTIFIED OF PMH AND PT LOW BLOOD PRESSURE. 500 CC BOLUS ORDERED, PT BP RECHECKED BEFORE ORDERING THE BOLUS AND BP CAME UP TO 101/67, WITH A MAP OF 78. DR. PALOMINO CALL AND NOTIFIED OF IMPROVED BP, HE STATES TO HOLD OFF ON BOLUS FOR NOW.
[2022-07-25 04:07] VITALS: BP 122/53
--- NOTE | 2022-07-25 04:16 | NUR ---
SHIFT SUMMARY PT HAS BEEN AWAKE MOST OF THE NIGHT ANXIOUS ABOUT HIS HEALTH, HE IS WORRIED THAT HE IS NOT GOING TO GET ANY BETTER. SUPPORT PROVIDED TO PT. PT A/OX3 BUT IS A LITTLE FORGETFUL. HE HAS BEEN VOIDING SINCE SCALES REMOVAL YESTERDAY AFTERNOON. HE IS INCONTINENT. LAST BLADDER SCAN THIS MORNING AROUND 400, TOO LOW FOR STRAIGHT CATH AT THIS TIME. PT BLOOD PRESSURES HAVE BEEN SOFT, BP MEDICATIONS HELD PER PARAMETERS. MAP IS ABOVE 65. DR. PALOMINO NOTIFIED OF LOW BLOOD PRESSURES. NO BOLUSES WERE ORDERED THIS SHIFT DUE TO STABLE MAP. SATS WNL ON NASAL CANNULA, RESP E/U. PT WITH PRODUCTIVE MOST COUGH. PT GIVEN TRAZADONE FOR SLEEP AND WAS ABLE TO REST OFF AND ON AFTER THAT TIME. BED IN LOWEST POSITION, CALL LIGHT WITHIN REACH.
[2022-07-25 05:03] LABS: BASOPHILS ABSOLUTE AUTO 0.06 K/mm3 (0.00-0.23); BASOPHILS PERCENT AUTO 0 % (0-2); EOSINOPHILS ABSOLUTE AUTO 0.25 K/mm3 (0.00-0.68); EOSINOPHILS PERCENT AUTO 2 % (0-6); Hematocrit 28.4 % (37.0-53.0); Hemoglobin 9.4 g/dL (13.5-17.5); IMMATURE GRAN ABSOLUTE AUTO 0.12 K/mm3 (0.00-0.10); IMMATURE GRAN PERCENT AUTO 1 % (0-1); LYMPHOCYTES ABSOLUTE AUTO 0.96 K/mm3 (0.84-5.20); LYMPHOCYTES PERCENT AUTO 7 % (21-46); MONOCYTES ABSOLUTE AUTO 0.77 K/mm3 (0.16-1.47); MONOCYTES PERCENT AUTO 5 % (4-13); Mean Corpuscular HGB 28.5 pg (26.0-34.0); Mean Corpuscular HGB Conc 33.1 g/dL (31.5-36.5); Mean Corpuscular Volume 86 fL (80-100); Mean Platelet Volume 9.2 fL (9.1-12.4); NEUTROPHILS ABSOLUTE AUTO 12.45 K/mm3 (1.96-9.15); NEUTROPHILS PERCENT AUTO 85 % (41-73); Platelet Count 288 K/mm3 (150-400); RDW Coefficient Variation 14.4 % (11.7-14.2); RDW Standard Deviation 45.1 fL (35.1-46.3); White Blood Cell Count 14.61 K/mm3 (4.00-11.30)
[2022-07-25 05:19] LABS: Bun/Creatinine Ratio 26.3 (12.0-20.0); Calcium, Blood 8.4 mg/dL (8.5-10.1); Creatinine, Blood 2.81 mg/dL (0.60-1.20); Potassium, Blood 5.6 mmol/L (3.5-5.5)
[2022-07-25 07:19] LABS: Potassium, Blood 5.6 mmol/L (3.5-5.5)
[2022-07-25 07:30] VITALS: BP 127/50
[2022-07-25 10:53] LABS: Vancomycin, Trough 18.6 ug/mL (5.0-10.0)
[2022-07-25 15:55] VITALS: BP 142/59
--- NOTE | 2022-07-25 17:48 | NUR ---
SHIFT SUMMARY PT A&OX4-PLEASENTLY CONFUSED AND IN PLEASENT MOOD T/O SHIFT. FAMILY/FRIENDS IN TO SEE PT T/O SHIFT. BEDREST AT THIS TIME. I&O MONITOR, BLADDER SCAN T/O SHIFT REPORTING TO EDWIN. HIGH K+ MEDICATED PER EMAR. ONE TIME BUMEX ADMINISTERED. CALL LIGHT W/IN REACH. VSS. TOLERATING PO INTAKE WELL.
[2022-07-25 19:15] VITALS: BP 118/51
[2022-07-26 03:39] VITALS: BP 131/53
[2022-07-26 05:26] LABS: BASOPHILS ABSOLUTE AUTO 0.07 K/mm3 (0.00-0.23); BASOPHILS PERCENT AUTO 1 % (0-2); EOSINOPHILS ABSOLUTE AUTO 0.27 K/mm3 (0.00-0.68); EOSINOPHILS PERCENT AUTO 2 % (0-6); Hematocrit 28.7 % (37.0-53.0); Hemoglobin 9.5 g/dL (13.5-17.5); IMMATURE GRAN ABSOLUTE AUTO 0.13 K/mm3 (0.00-0.10); IMMATURE GRAN PERCENT AUTO 1 % (0-1); LYMPHOCYTES PERCENT AUTO 6 % (21-46); MONOCYTES ABSOLUTE AUTO 0.62 K/mm3 (0.16-1.47); MONOCYTES PERCENT AUTO 5 % (4-13); Mean Corpuscular HGB 28.4 pg (26.0-34.0); Mean Corpuscular HGB Conc 33.1 g/dL (31.5-36.5); Mean Corpuscular Volume 86 fL (80-100); Mean Platelet Volume 9.3 fL (9.1-12.4); NEUTROPHILS ABSOLUTE AUTO 10.83 K/mm3 (1.96-9.15); NEUTROPHILS PERCENT AUTO 86 % (41-73); Platelet Count 310 K/mm3 (150-400); RDW Coefficient Variation 14.3 % (11.7-14.2); RDW Standard Deviation 44.3 fL (35.1-46.3); Red Blood Cell Count 3.34 M/mm3 (4.30-5.90); White Blood Cell Count 12.62 K/mm3 (4.00-11.30)
--- NOTE | 2022-07-26 05:34 | NUR ---
SHIFT SUMMARY: PT IS A&OX3-4, FORGETFUL. VSS, NO ACUTE EVENTS OVERNIGHT. PT HAS COMPLAINED OF NASAL CONGESTION. ATTEMPTED TO REACH ON-CALL PHYSICIAN TO REQUEST SALINE NASAL SPRAY, UNABLE TO CONTACT, SHIPPING AGENT NOTIFIED. PT IS INCONTINENT OF BLADDER, ATTENDS IN PLACE. BLADDER SCAN SHOWED 541 ML IN BLADDER, PT ABLE TO URINATE 150. PT HAS HAD SEVERAL LARGE INCONTINENT EPISDOES DURING THE NIGHT. PT IS ON 1500 ML FLUID RESTRICTION OVER 24-HRS. O2 VIA NC AT 3.[address] OVER SORE ON BOTTOM. PT HAS BEEN TURNED AND REPOSITIONED DURING THE NIGHT TO ALLEVIATE PRESSURE TO THE SORE AREA. PT IS LYING IN BED WITH THE CALL LIGHT IN REACH. WCTM UNTIL REPORT IS GIVEN TO THE DAY SHIFT RN.
[2022-07-26 06:05] LABS: Albumin, Blood 2.5 g/dL (3.4-5.0); Anion Gap 7 mmol/L (6-16); Blood Urea Nitrogen 69 mg/dL (8-24); Bun/Creatinine Ratio 26.7 (12.0-20.0); CO2, Blood 24 mmol/L (21-32); CPK Creatine Kinase 38 U/L (39-308); Calcium, Blood 8.3 mg/dL (8.5-10.1); Chloride, Blood 104 mmol/L (98-108); Creatinine, Blood 2.58 mg/dL (0.60-1.20); Glomerular Filtration Rate 23 (60-); Glucose, Blood 145 mg/dL (70-99); Magnesium, Blood 2.6 mg/dL (1.6-2.4); Phosphorus, Blood 4.9 mg/dL (2.5-4.9); Potassium, Blood 5.1 mmol/L (3.5-5.5); Sodium, Blood 135 mmol/L (136-145); Uric Acid, Blood 6.7 mg/dL (3.5-7.2)
[2022-07-26 06:39] LABS: Osmolality, Serum 306 mos/KG (275-300)
[2022-07-26 08:02] VITALS: BP 109/58
[2022-07-26 12:01] LABS: Vancomycin, Trough 20.5 ug/mL (5.0-10.0)
[2022-07-26 14:19] LABS: Source, Urine Foley catheter
[2022-07-26 14:31] LABS: Appearance, Urine Clear (Clear); Bilirubin, Urine Neg (Neg); Blood, Urine Neg (Neg); Glucose Qualitative, Urine Neg (Neg); Ketones, Urine Neg (Neg); Leukocyte Esterase, Urine 1+ (Neg); Nitrite, Urine Neg (Neg); Protein, Urine 1+ (Neg); Urobilinogen, Urine NORM (Normal)
[2022-07-26 14:49] LABS: Color, Urine Pale Yellow (P-Yellow)
[2022-07-26 14:50] LABS: Red Blood Cells, Urine 0-2 /hpf (0-2); Squamous Epithelial Cells Rare /hpf (Few)
[2022-07-26 14:51] LABS: Bacteria Few /hpf
[2022-07-26 15:03] VITALS: BP 129/76
--- NOTE | 2022-07-26 18:30 | NUR ---
SHIFT SUMMARY PT A&OX4 AND IN PLEASENT MOOD. CONFUSION SEEMS TO BE IMPROVING THIS SHIFT. PT C/O NOT BEING ABLE TO SLEEP, THOUGH SEEN SEVERAL TIMES THROUGHOUT SHIFT NAPPING IN BED DURING THE DAY-CPAP PROVIDED PT C/O UNCOMFORTABLE. VSS. TOLERATING PO INTAKE WELL. SCALES IN PLACE DRAINGING TO GRAVITY. CALL LIGHT W/IN REACH. FRIENDS IN TO SEE PT T/O VISITING HOURS. ATTEMPTING TO WEAN PT OFF O2 TO RA-BASELINE.
[2022-07-26 19:13] VITALS: BP 118/73
--- NOTE | 2022-07-27 04:09 | NUR ---
[employer] SUMMARY NO ACUTE EVENTS THIS SHIFT. A&OX4. PATIENT EFFECTIVELY COMMUNICATES NEEDS. VSS. RR EVEN AND UNLABORED ON CPAP /C 3L BLEED-IN. SP02 >92%. SCALES CATHETER DRAINING TO GRAVITY. NO PAIN REPORTED TO THIS RN. PATIENT NOTED TO SLEEP WELL THROUGHOUT THE NIGHT. BED LOW AND LOCKED. CALL LIGHT WITHIN REACH. THIS RN WILL CONTINUE TO MONITOR.
[2022-07-27 05:10] LABS: Hematocrit 29.3 % (37.0-53.0); Hemoglobin 9.6 g/dL (13.5-17.5)
[2022-07-27 05:36] LABS: Albumin, Blood 2.4 g/dL (3.4-5.0); Anion Gap 5 mmol/L (6-16); Blood Urea Nitrogen 62 mg/dL (8-24); Bun/Creatinine Ratio 28.7 (12.0-20.0); CO2, Blood 25 mmol/L (21-32); Calcium, Blood 8.6 mg/dL (8.5-10.1); Chloride, Blood 107 mmol/L (98-108); Creatinine, Blood 2.16 mg/dL (0.60-1.20); Glomerular Filtration Rate 29 (60-); Glucose, Blood 148 mg/dL (70-99); Magnesium, Blood 2.5 mg/dL (1.6-2.4); Phosphorus, Blood 4.4 mg/dL (2.5-4.9); Potassium, Blood 5.3 mmol/L (3.5-5.5); Sodium, Blood 137 mmol/L (136-145); Vancomycin, Random 17.2 ug/mL
[2022-07-27 07:52] VITALS: BP 138/55
--- NOTE | 2022-07-27 10:51 | NUR ---
Pt up in recliner with ast from PT and slide board. 02 sat 93%RA. Flutter valve provided. Pt educated on use with return demonstration. Call light in reach. Pt instructed to call for any needs.
[2022-07-27 14:36] VITALS: BP 150/76
--- NOTE | 2022-07-27 15:03 | NUR ---
PT BACK TO BED WITH MAX AST. 02 SAT REMAINS 93% ON RA.
--- NOTE | 2022-07-27 16:51 | NUR ---
Pt. is awake in his bed and welcomes my visit. Pt. is unsettled because a nurse wasn't responding to his call button. Listened with empathy and turned his lights on the way he requested. With a calming presence this financial aid manager was able to lower the Pts. growing anxiety. Facilitated a lengthy life review, and established rapport. Considered matters of the williams of his past. Pt. displays evidence of being lonely. Prayed with Pt. Pt. verbalized gratitude for the spiritual care visit.
--- NOTE | 2022-07-27 18:12 | NUR ---
SHIFT SUMMARY: Pt remains A&O X3 this shift, forgetful at times. Not remembering staff in room, ast with transfer to recliner/back. Reassured care provided. Q2 hour turns. cardiothoracic anesthesia technician informed of brief increased HR at times. Meds given as ordered. Resp even nonlabored. O2 sat 93-95% RA. Continuous pulse ox in place. Flutter valve at bedside. Pt using properly. Srinivasan intact with yellow output. Call light in reach, bed in lowest postion, locked. Will continue to monitor this shift.
[2022-07-27 19:41] VITALS: BP 132/58
[2022-07-28 04:54] VITALS: BP 165/70
--- NOTE | 2022-07-28 05:03 | NUR ---
SUMMARY: PT A/0X3-4 BUT MILDLY FORGETFULL AT TIMES. HE CALLED OFTEN W/SAME REQ'S DESPITE NEEDS ALREADY ATTENDED TO BUT REORIENTED EASILY W/REMINDERS. PT PLEASANT AND COOPERATIVE W/CARE AND ASSIST W/REPOSITIONING WAS PROVIDED D/T LIMITED MOBILITY R/T BILAT BKA'S. CHRONIC SCALES IS PATENT AND DRAINING AND 1500ML FR MAINTAINED. HE CONT'S TO REQUIRE 2-4L O2 VIA NC OR CPAP BLEED IN W/CONT BIOX INTACT. STAFF UNABLE TO TITRATE D/T PT DESATS TO 80'S% ON RA OR WHEN ASLEEP AND MOUTH BREATHING. PT REMAINS ON TELE IN NSR AT 80'S BPM BUT HAD X1 EPISODE OF HR 140'S THAT RESOLVED QUICKLY AND SPONTANEOUSLY. TRAZADONE PROVIDED PRN FOR C/O ANXIETY AND DIFFICULTY SLEEPING BUT NOT MUCH EFFECT WAS OBSERVED. NO ACTUE CHANGES, VSS/AFEBRILE. WCTM AND REPORT TO DAY RN.
[2022-07-28 05:15] LABS: Hematocrit 31.6 % (37.0-53.0); Hemoglobin 10.5 g/dL (13.5-17.5)
[2022-07-28 05:55] LABS: Albumin, Blood 2.6 g/dL (3.4-5.0); Anion Gap 8 mmol/L (6-16); Blood Urea Nitrogen 54 mg/dL (8-24); Bun/Creatinine Ratio 28.4 (12.0-20.0); CO2, Blood 23 mmol/L (21-32); Calcium, Blood 9.3 mg/dL (8.5-10.1); Chloride, Blood 106 mmol/L (98-108); Glomerular Filtration Rate 33 (60-); Glucose, Blood 125 mg/dL (70-99); Magnesium, Blood 2.2 mg/dL (1.6-2.4); Phosphorus, Blood 2.4 mg/dL (2.5-4.9); Potassium, Blood 4.2 mmol/L (3.5-5.5); Sodium, Blood 137 mmol/L (136-145); Vancomycin, Random 21.1 ug/mL
[2022-07-28 07:13] VITALS: BP 160/76
[2022-07-28] MEDS ORDERED: AMOX875 PO (13:47)
[2022-07-28] MEDS ORDERED: MELA3 PO (13:48)
[2022-07-28] MEDS ORDERED: GUAI600T33 PO (13:48)
[2022-07-28] MEDS ORDERED: BUME1 PO (13:48)
--- NOTE | 2022-07-28 14:08 | NUR ---
DISCHARGE PT DISCHARGED HOME VIA W/C [facility]AN[facility]. GOLVO LIFT USED. CONTINUE POC.
== END 2022-07-28 14:10 | disposition home health service (06) | DRG 698 ==
LOC: ER 15:21 → MEDS 15:22 → ENPENDDIS 07-28 11:08 → MEDS 07-28 14:10
PROVIDERS: Emergency Medicine; Family Medicine; Internal Medicine Nephrology; Pharmacist; ADMIT Internal Medicine
PROC: 3E03329 Introduction of Other Anti-infective into Peripheral Vein, Percutaneous Approach (ICD-10-PCS; principal; 2022-07-23)
PROC: 0T9B70Z Drainage of Bladder with Drainage Device, Via Natural or Artificial Opening (ICD-10-PCS; 2022-07-23)
DX: T83.511A Infection and inflammatory reaction due to indwelling urethral catheter, initial encounter (principal); A41.81 Sepsis due to Enterococcus; G93.41 Metabolic encephalopathy; J18.9 Pneumonia, unspecified organism; J96.01 Acute respiratory failure with hypoxia; I50.43 Acute on chronic combined systolic (congestive) and diastolic (congestive) heart failure; K92.2 Gastrointestinal hemorrhage, unspecified; I13.0 Hypertensive heart and chronic kidney disease with heart failure and stage 1 through stage 4 chronic kidney disease, or unspecified chronic kidney disease; E87.1 Hypo-osmolality and hyponatremia; E87.20 Acidosis, unspecified; J98.11 Atelectasis; N17.9 Acute kidney failure, unspecified; L98.418 Non-pressure chronic ulcer of buttock with other specified severity; Z66 Do not resuscitate; N39.0 Urinary tract infection, site not specified; E11.42 Type 2 diabetes mellitus with diabetic polyneuropathy; H35.30 Unspecified macular degeneration; I25.10 Atherosclerotic heart disease of native coronary artery without angina pectoris; E87.5 Hyperkalemia; G25.81 Restless legs syndrome; I95.9 Hypotension, unspecified; G89.29 Other chronic pain; K21.9 Gastro-esophageal reflux disease without esophagitis; N40.1 Benign prostatic hyperplasia with lower urinary tract symptoms; E83.39 Other disorders of phosphorus metabolism; N39.498 Other specified urinary incontinence; E66.9 Obesity, unspecified; D63.1 Anemia in chronic kidney disease; G47.33 Obstructive sleep apnea (adult) (pediatric); E11.22 Type 2 diabetes mellitus with diabetic chronic kidney disease; N18.30 Chronic kidney disease, stage 3 unspecified; Z68.30 Body mass index [BMI] 30.0-30.9, adult; Z87.891 Personal history of nicotine dependence; Z79.4 Long term (current) use of insulin; Z79.899 Other long term (current) drug therapy; Z79.2 Long term (current) use of antibiotics; Z96.653 Presence of artificial knee joint, bilateral; Z90.89 Acquired absence of other organs; Z98.890 Other specified postprocedural states; Z99.81 Dependence on supplemental oxygen; Y84.6 Urinary catheterization as the cause of abnormal reaction of the patient, or of later complication, without mention of misadventure at the time of the procedure
CPT/HCPCS: 36415; 71046; 76770; 80048; 80053; 80069; 80202; 81001; 82272; 82330; 82533; 82550; 82947; 83605; 83735; 83880; 83930; 84132; 84145; 84295; 84443; 84550; 85014; 85018; 85025; 87040; 87077; 87086; 87186; 93306; 94640; 94660; 94664; 94760; 94762; 96365; 96366; 96375; 97110; 97162; 97166; 97530; 97535; 99285-25; A9270; G0103; G0378; J0692; J0696; J0881; J1650; J1815; J1940; J3370; J7030; J7050; J7060

== ENCOUNTER 2022-07-31 23:16 | Emergency (ER) | payer OTHER ==
[~2022-07-31] VITALS: Ht 152.4 cm; Wt 90.7 kg
[~2022-07-31 23:16] MED LIST changes: +AMOX875 PO; +BUME1 PO; +MELA3 PO
[2022-07-31 23:54] LABS: BASOPHILS ABSOLUTE AUTO 0.06 K/mm3 (0.00-0.23); BASOPHILS PERCENT AUTO 1 % (0-2); EOSINOPHILS ABSOLUTE AUTO 0.44 K/mm3 (0.00-0.68); EOSINOPHILS PERCENT AUTO 4 % (0-6); Hematocrit 29.6 % (37.0-53.0); Hemoglobin 9.6 g/dL (13.5-17.5); IMMATURE GRAN ABSOLUTE AUTO 0.11 K/mm3 (0.00-0.10); IMMATURE GRAN PERCENT AUTO 1 % (0-1); LYMPHOCYTES ABSOLUTE AUTO 1.15 K/mm3 (0.84-5.20); LYMPHOCYTES PERCENT AUTO 12 % (21-46); MONOCYTES ABSOLUTE AUTO 0.69 K/mm3 (0.16-1.47); MONOCYTES PERCENT AUTO 7 % (4-13); Mean Corpuscular HGB 28.4 pg (26.0-34.0); Mean Corpuscular HGB Conc 32.4 g/dL (31.5-36.5); Mean Corpuscular Volume 88 fL (80-100); Mean Platelet Volume 9.2 fL (9.1-12.4); NEUTROPHILS ABSOLUTE AUTO 7.55 K/mm3 (1.96-9.15); NEUTROPHILS PERCENT AUTO 76 % (41-73); Platelet Count 289 K/mm3 (150-400); RDW Coefficient Variation 14.6 % (11.7-14.2); RDW Standard Deviation 46.2 fL (35.1-46.3); Red Blood Cell Count 3.38 M/mm3 (4.30-5.90)
[2022-08-01 00:06] LABS: Albumin, Blood 2.7 g/dL (3.4-5.0); Albumin/Globulin Ratio 0.6 (0.8-1.8); Bilirubin, Total 0.2 mg/dL (0.1-1.0); Bun/Creatinine Ratio 26.1 (12.0-20.0); Calcium, Blood 8.3 mg/dL (8.5-10.1); Creatinine, Blood 2.3 mg/dL (0.60-1.20); Globulin, Blood 4.4 g/dL (2.2-4.0); Potassium, Blood 5.4 mmol/L (3.5-5.5); Total Protein, Blood 7.1 g/dL (6.4-8.2)
[2022-08-01 02:45] VITALS: BP 101/90
== END 2022-08-01 04:19 | disposition home or self-care (01) ==
LOC: ER 23:16
PROVIDERS: Student in an Organized Health Care Education/Training Program
DX: R06.02 Shortness of breath (principal); Z79.899 Other long term (current) drug therapy; Z79.4 Long term (current) use of insulin; E11.40 Type 2 diabetes mellitus with diabetic neuropathy, unspecified; E11.22 Type 2 diabetes mellitus with diabetic chronic kidney disease; N18.30 Chronic kidney disease, stage 3 unspecified; I12.9 Hypertensive chronic kidney disease with stage 1 through stage 4 chronic kidney disease, or unspecified chronic kidney disease; E78.5 Hyperlipidemia, unspecified; K21.9 Gastro-esophageal reflux disease without esophagitis; M10.9 Gout, unspecified; I25.2 Old myocardial infarction
CPT/HCPCS: 71045; 80053; 83880; 84484; 85025; 93005; 93010; 99285-25